=== PATIENT | male | born 1965 | race Caucasian/White ===

== ENCOUNTER 2017-07-15 10:07 | Inpatient (IN) | payer BC, OTHER ==
[2017-07-15] MEDS ORDERED: FENTAnyl 50 MCG/ML VIAL ×2 (12:20→12:55)
[2017-07-15] MEDS ORDERED: LIDOCAINE 1% (MDV) 20 ML INJ (12:20)
[2017-07-15] MEDS ORDERED: HEPARIN 1000 UNITS/ML 10 ML INJ (12:20)
[2017-07-15] MEDS ORDERED: IODIXANOL LOCM 100 ML BTL (12:20)
[2017-07-15] MEDS ORDERED: NITROGLYCERIN (IC) 100 MCG/ML INJ (12:21)
[2017-07-15] MEDS ORDERED: VERAPAMIL 5 MG INJ (12:21)
[2017-07-15] MEDS ORDERED: MIDAZOLAM 1 MG/ML 2 ML INJ ×2 (12:21→12:55)
[2017-07-15] MEDS ORDERED: CLOPIDOGREL 300 MG TAB (13:19)
[2017-07-15] MEDS ORDERED: IOHEXOL 350MG/ML 50 ML BTL (13:25)
[2017-07-15] MEDS ORDERED: BIVALIRUDIN 250MG /NS 50 ML 50 ML IVPB ×2 (13:25→13:59)
[2017-07-15] MEDS ORDERED: NITROGLYCERIN (SL) 0.4 MG TAB (14:14)
[2017-07-15] MEDS ORDERED: ACETAMINOPHEN 325 MG TAB PO (14:30)
[2017-07-15] MEDS: ISOSORBIDE MONONITRATE(SR)60 MG TAB PO (15:21)
[2017-07-15 19:06] LABS: ADD MAN DIFF? NO
[2017-07-15 19:08] LABS: WHITE BLOOD COUNT 7.7 10^3/ul (4.8-10.8)
[2017-07-15 19:08] LABS: BASOPHILS % 0.5 % (0.0-2.0); EOSINOPHILS % 0.5 % (0.0-7.0); HEMATOCRIT 41.2 % (42.0-52.0); HEMOGLOBIN 14.4 g/dl (14.0-18.0); LYMPHOCYTES % 25.8 % (15.0-51.0); MEAN CORPUSCULAR VOLUME 88.8 fl (82.0-101.0); MEAN PLATELET VOLUME 9.9 fl (7.4-10.4); MONOCYTE # 0.5 10^3/ul (0.3-0.9); NEUTROPHIL # 5.2 10^3/ul (1.6-7.5); NEUTROPHILS % 67.1 % (39.0-77.0); PLATELET COUNT 173 10^3/UL (140-415); RED BLOOD COUNT 4.64 10^6/ul (4.70-6.10)
[2017-07-15 19:25] LABS: ANION GAP 13 (8-16); BLOOD UREA NITROGEN 24 mg/dl (7-20); CALCIUM 9.1 mg/dl (8.4-10.2); CARBON DIOXIDE 26 mmol/L (21-31); CHLORIDE 105 mmol/L (97-110); CREATININE 1.37 mg/dl (0.61-1.24); GLUCOSE 125 mg/dl (70-220); POTASSIUM 3.9 mmol/L (3.5-5.1); SODIUM 140 mmol/L (135-144)
[2017-07-15] MEDS: METOPROLOL 25 MG TAB PO (21:08)
[2017-07-16 05:52] LABS: ADD MAN DIFF? NO
[2017-07-16 05:58] LABS: BASOPHILS % 0.4 % (0.0-2.0); EOSINOPHILS # 0.1 10^3/ul (0.0-0.5); EOSINOPHILS % 1.2 % (0.0-7.0); HEMATOCRIT 42.1 % (42.0-52.0); HEMOGLOBIN 14.5 g/dl (14.0-18.0); LYMPHOCYTES # 2.1 10^3/ul (0.8-2.9); LYMPHOCYTES % 26.4 % (15.0-51.0); MEAN CORPUSCULAR HEMOGLOBIN 30.5 pg (29.0-33.0); MEAN CORPUSCULAR HGB CONC 34.4 g/dl (32.0-37.0); MEAN CORPUSCULAR VOLUME 88.6 fl (82.0-101.0); MONOCYTE # 0.6 10^3/ul (0.3-0.9); MONOCYTES % 7.1 % (0.0-11.0); NEUTROPHIL # 5.2 10^3/ul (1.6-7.5); NEUTROPHILS % 64.5 % (39.0-77.0); PLATELET COUNT 169 10^3/UL (140-415); RED BLOOD COUNT 4.75 10^6/ul (4.70-6.10); RED CELL DISTRIBUTION WIDTH 12.8 % (11.5-14.5)
[2017-07-16 06:21] LABS: MAGNESIUM 1.9 mg/dl (1.7-2.5)
[2017-07-16 06:21] LABS: PHOSPHORUS 3.9 mg/dl (2.5-4.9)
[2017-07-16 06:29] LABS: ANION GAP 14 (8-16); BLOOD UREA NITROGEN 21 mg/dl (7-20); CALCIUM 9.2 mg/dl (8.4-10.2); CARBON DIOXIDE 27 mmol/L (21-31); CHLORIDE 104 mmol/L (97-110); CREATININE 1.18 mg/dl (0.61-1.24); GLUCOSE 115 mg/dl (70-220); POTASSIUM 4.2 mmol/L (3.5-5.1); SODIUM 141 mmol/L (135-144)
[2017-07-16] MEDS: ENOXAPARIN 100 MG/ML SYG SC ×2 (08:26→22:13)
[2017-07-16] MEDS: FAMOTIDINE 20 MG TAB PO ×2 (08:28→22:06)
[2017-07-16] MEDS: LINAGLIPTIN 5 MG TABLET PO (08:28)
[2017-07-16] MEDS: ASPIRIN 81 MG TAB PO (08:28)
[2017-07-16] MEDS: METOPROLOL 25 MG TAB PO ×2 (08:29→22:07)
[2017-07-16] MEDS: ISOSORBIDE MONONITRATE(SR)60 MG TAB PO (08:29)
[2017-07-16] MEDS ORDERED: GLUCAGON 1 MG INJ IM (08:30)
[2017-07-16] MEDS ORDERED: GLUCOSE GEL 15 GRAM TUBE PO ×2 (08:30)
[2017-07-16] MEDS ORDERED: DEXTROSE 50% 50 ML SYRINGE IV ×2 (08:30)
[2017-07-16] MEDS ORDERED: GLUCOSE GEL 15 GRAM TUBE BUCCAL (08:30)
[2017-07-16 08:42] LABS: ALANINE AMINOTRANSFERASE 42 IU/L (13-69); ALBUMIN 3.7 g/dl (3.3-4.9); ALKALINE PHOSPHATASE 45 IU/L (42-121); ASPARTATE AMINO TRANSFERASE 37 IU/L (15-46); BILIRUBIN,INDIRECT 0.4 mg/dl (0-1.1); BILIRUBIN,TOTAL 0.4 mg/dl (0.2-1.3); TOTAL PROTEIN 6.8 g/dl (6.1-8.1)
[2017-07-16] MEDS: DOCUSATE SODIUM 100 MG CAP PO (10:26)
[2017-07-16 12:50] LABS: INR 1.01; PROTIME 13.4 Sec (11.9-14.9)
[2017-07-16 14:11] LABS: ADD UMIC NO; UR ASCORBIC ACID NEGATIVE (NEGATIVE); UR BILIRUBIN (Dip) NEGATIVE (NEGATIVE); UR BLOOD (Dip) NEGATIVE (NEGATIVE); UR CLARITY CLEAR (CLEAR); UR COLOR YELLOW (YELLOW); UR GLUCOSE (Dip) NEGATIVE (NEGATIVE); UR KETONES (Dip) NEGATIVE (NEGATIVE); UR LEUKOCYTE ESTERASE (Dip) NEGATIVE Leu/ul (NEGATIVE); UR NITRITE (Dip) NEGATIVE (NEGATIVE); UR TOTAL PROTEIN (Dip) NEGATIVE (NEGATIVE); UR UROBILINOGEN (Dip) NEGATIVE (NEGATIVE)
[2017-07-16] MEDS: ALPRAZOLAM 0.25 MG TAB PO (14:12)
[2017-07-16 14:29] LABS: CREATININE,URINE RANDOM 56.78 mg/dl (20-370)
[2017-07-16 14:29] LABS: SODIUM,URINE RANDOM 39 mmol/L (30-90)
[2017-07-16] MEDS: INSULIN ASPART [NOVOLOG] 3 ML PEN SC ×2 (17:08→21:00)
[2017-07-16] MEDS: NITROGLYCERIN (SL) 0.4 MG TAB SL (18:57)
[2017-07-17] MEDS: ACCU-CHEK XX ×2 (02:00→22:03)
[2017-07-17 07:22] LABS: ANION GAP 12 (8-16); BLOOD UREA NITROGEN 17 mg/dl (7-20); CALCIUM 9.4 mg/dl (8.4-10.2); CARBON DIOXIDE 29 mmol/L (21-31); CHLORIDE 107 mmol/L (97-110); GLUCOSE 107 mg/dl (70-220); PHOSPHORUS 3.9 mg/dl (2.5-4.9); POTASSIUM 4.2 mmol/L (3.5-5.1); SODIUM 144 mmol/L (135-144)
[2017-07-17] MEDS: INSULIN ASPART [NOVOLOG] 3 ML PEN SC ×4 (07:56→21:00)
[2017-07-17] MEDS: ISOSORBIDE MONONITRATE(SR)60 MG TAB PO (08:23)
[2017-07-17] MEDS: FAMOTIDINE 20 MG TAB PO ×2 (08:23→21:31)
[2017-07-17] MEDS: ASPIRIN 81 MG TAB PO (08:23)
[2017-07-17] MEDS: LINAGLIPTIN 5 MG TABLET PO (08:23)
[2017-07-17] MEDS: METOPROLOL 25 MG TAB PO ×2 (08:24→21:32)
[2017-07-17] MEDS: ENOXAPARIN 100 MG/ML SYG SC (08:31)
[2017-07-17] MEDS: LACTULOSE 30ML CUP PO (12:45)
[2017-07-17] MEDS: BISACODYL (EC) 5 MG TAB PO (21:31)
[2017-07-18] MEDS: NITROGLYCERIN (SL) 0.4 MG TAB SL (05:39)
[2017-07-18] MEDS: INSULIN ASPART [NOVOLOG] 3 ML PEN SC ×3 (08:00→19:20)
[2017-07-18] MEDS: ASPIRIN 81 MG TAB PO (08:29)
[2017-07-18] MEDS: LINAGLIPTIN 5 MG TABLET PO (08:29)
[2017-07-18] MEDS: FAMOTIDINE 20 MG TAB PO ×2 (08:29→21:00)
[2017-07-18] MEDS: METOPROLOL 25 MG TAB PO ×2 (09:00→21:00)
[2017-07-18] MEDS: ISOSORBIDE MONONITRATE(SR)60 MG TAB PO (09:00)
[2017-07-18] MEDS: PAPAVERINE 60 MG INJ (11:29)
[2017-07-18] MEDS: VANCOMYCIN 1 GM INJ (11:29)
[2017-07-18] MEDS ORDERED: GELATIN SIZE 100 SPONGE (11:29)
[2017-07-18] MEDS: HEPARIN 1000 UNITS/ML 10 ML INJ (11:29)
[2017-07-18] MEDS ORDERED: THROMBIN 5000 UNIT VIAL (11:29)
[2017-07-18] MEDS ORDERED: EPINEPHrine 4 MG in DEXTROSE 5% 246 ML IV (12:30)
[2017-07-18] MEDS ORDERED: INSULIN HUMAN REGULAR 100 UNIT in SOD CHLORIDE 0.9% 99 ML IV (12:30)
[2017-07-18] MEDS ORDERED: PHENYLephrine 20MG IN 250 ML 250 ML IV (12:30)
[2017-07-18] MEDS ORDERED: MIDAZOLAM 5 ML ×3 (13:16→18:22)
[2017-07-18] MEDS ORDERED: HEPARIN 1000 UNITS/ML 10 ML INJ ×2 (13:21→14:51)
[2017-07-18] MEDS ORDERED: LIDOCAINE 100 MG SYRINGE (13:22)
[2017-07-18] MEDS ORDERED: MAGNESIUM SULFATE (MG) 50% 10 ML INJ (13:22)
[2017-07-18] MEDS ORDERED: POTASSIUM CHLORIDE 40 MEQ INJ (13:22)
[2017-07-18] MEDS ORDERED: NA BICARBONATE 8.4% 50 ML SYG (13:23)
[2017-07-18] MEDS ORDERED: CA CHLORIDE 10% 10 ML SYRINGE (13:23)
[2017-07-18] MEDS ORDERED: ALBUMIN HUMAN 25% 100 ML (13:23)
[2017-07-18] MEDS ORDERED: PHENYLephrine 10 MG INJ (13:24)
[2017-07-18] MEDS ORDERED: AMINOCAPROIC ACID 5 GM INJ (13:24)
[2017-07-18] MEDS ORDERED: MANNITOL 20% 250 ML IV (13:24)
[2017-07-18] MEDS ORDERED: PHENYLephrine (100 MCG/ML) 5ML SYG ×2 (13:44→17:11)
[2017-07-18] MEDS ORDERED: CEFAZOLIN 1 GM INJ ×2 (14:18→17:19)
[2017-07-18 14:22] LABS: CREATININE, RANDOM URINE 67 mg/dL (20-370); MICROALBUMIN 1.7 mg/dL; MICROALBUMIN/CREATININE RATIO 25 (<30)
[2017-07-18] MEDS ORDERED: FUROSEMIDE 20 MG INJ (17:17)
[2017-07-18] MEDS ORDERED: PROTAMINE 250 MG INJ (17:18)
[2017-07-18 17:24] LABS: IMMEDIATE SPIN CROSSMATCH 1 7
[2017-07-18 17:24] LABS: TYPE AND SCREEN 1
[2017-07-18] MEDS ORDERED: ROCURONIUM 50 MG INJ (18:02)
[2017-07-18] MEDS ORDERED: LIDOCAINE 2% (SDV) 5 ML INJ (18:02)
[2017-07-18] MEDS ORDERED: ETOMIDATE 20 MG INJ (18:02)
[2017-07-18] MEDS ORDERED: ONDANSETRON 4 MG INJ IV (19:30)
[2017-07-18] MEDS ORDERED: ACETAMINOPHEN 650 MG SUPP PR (19:30)
[2017-07-18] MEDS ORDERED: DEXTROSE 50% 50 ML SYRINGE IV ×2 (19:30)
[2017-07-18] MEDS ORDERED: HYDROmorphONE 0.5 MG/0.5 ML SYG IV (19:30)
[2017-07-18] MEDS ORDERED: ACETAMINOPHEN 325 MG TAB PO (19:30)
[2017-07-18] MEDS: ACCU-CHEK XX ×5 (19:30→23:59)
[2017-07-18] MEDS ORDERED: DOPamine-D5W 1.6 MG/ML 250 ML IV (19:30)
[2017-07-18] MEDS ORDERED: NITROGLYCERIN 50 MG/D5W (PMX) 250 ML IV (19:30)
[2017-07-18 19:32] LABS: ADD MAN DIFF? NO
[2017-07-18 19:35] LABS: BASOPHILS % 0.1 % (0.0-2.0); EOSINOPHILS % 0.2 % (0.0-7.0); HEMATOCRIT 36.4 % (42.0-52.0); HEMOGLOBIN 12.5 g/dl (14.0-18.0); LYMPHOCYTES % 6.3 % (15.0-51.0); MEAN CORPUSCULAR HEMOGLOBIN 30.6 pg (29.0-33.0); MEAN CORPUSCULAR HGB CONC 34.3 g/dl (32.0-37.0); MEAN CORPUSCULAR VOLUME 89.2 fl (82.0-101.0); MEAN PLATELET VOLUME 9.5 fl (7.4-10.4); MONOCYTE # 0.2 10^3/ul (0.3-0.9); MONOCYTES % 1.3 % (0.0-11.0); NEUTROPHIL # 15.1 10^3/ul (1.6-7.5); NEUTROPHILS % 91.5 % (39.0-77.0); PLATELET COUNT 145 10^3/UL (140-415); RED BLOOD COUNT 4.08 10^6/ul (4.70-6.10); RED CELL DISTRIBUTION WIDTH 12.9 % (11.5-14.5)
[2017-07-18 19:35] LABS: WHITE BLOOD COUNT 16.5 10^3/ul (4.8-10.8)
[2017-07-18 19:38] LABS: AADO2 Arterial 325.7 mmHg (7.0-24.0); Arterial Blood Gas Oxygen Sat 97.8 mmHG (95.0-98.0); Arterial COHb 0.1 % (0.0-3.0); Arterial Fraction of Oxyhgb 97.6 % (93.0-99.0); Arterial HCO3 23.3 mmol/L (22.0-26.0); Arterial MetHb 0.1 % (0.0-1.5); Arterial pCO2 41.8 mmhg (35-45); MODE VENT - AC; Site A-Line
[2017-07-18 19:44] LABS: ANION GAP 14 (8-16); BLOOD UREA NITROGEN 18 mg/dl (7-20); CALCIUM 9.1 mg/dl (8.4-10.2); CARBON DIOXIDE 29 mmol/L (21-31); CHLORIDE 103 mmol/L (97-110); GLUCOSE 111 mg/dl (70-220); MAGNESIUM 2.9 mg/dl (1.7-2.5); POTASSIUM 3.7 mmol/L (3.5-5.1); SODIUM 142 mmol/L (135-144)
[2017-07-18] MEDS: morphine 2 MG INJ IV (19:45)
[2017-07-18 19:47] LABS: INR 1.12; MODE VENT - AC; MetHgb Mixed Venous 0.4 %; Mixed Venous Base Excess -0.6 mmol/L; Mixed Venous COHb 0.5 %; Mixed Venous Fraction OxyHgb 75.3 %; Mixed Venous Total Hemglobin 12.9 g/dl; PROTIME 14.6 Sec (11.9-14.9); PT RATIO 1.1; Sample Type Blood venous; Site VENOUS LINE
[2017-07-18 19:48] LABS: PARTIAL THROMBOPLASTIN TIME 25.8 Sec (25.0-35.0)
[2017-07-18] MEDS: ALBUMIN HUMAN 5% 250 ML IV (20:11)
[2017-07-18] MEDS: POTASSIUM CHLORIDE 40 MEQ, CALCIUM CHLORIDE 10% 1 GM in DEXTROSE 5%-0.225% NACL 1,000 ML IV (20:19)
[2017-07-18] MEDS: POTASSIUM CHLORIDE 50 ML IVPB ×3 (20:23→22:47)
[2017-07-18] MEDS: INSULIN HUMAN REGULAR 100 UNIT in SOD CHLORIDE 0.9% 99 ML IV ×3 (20:38→22:10)
[2017-07-18] MEDS: DOPamine-D5W 1.6 MG/ML 250 ML IV (20:42)
[2017-07-18] MEDS: NITROGLYCERIN 50 MG/D5W (PMX) 250 ML IV (20:43)
[2017-07-18] MEDS: FAMOTIDINE 20 MG INJ IV (21:33)
[2017-07-19] MEDS: morphine 2 MG INJ IV ×3 (00:23→07:19)
[2017-07-19] MEDS: ACCU-CHEK XX ×24 (00:39→23:30)
[2017-07-19 00:59] LABS: POTASSIUM 3.7 mmol/L (3.5-5.1)
[2017-07-19] MEDS: POTASSIUM CHLORIDE 50 ML IVPB ×6 (01:29→21:12)
[2017-07-19] MEDS: ALBUMIN HUMAN 5% 250 ML IV (03:19)
[2017-07-19 04:08] LABS: ADD MAN DIFF? NO
[2017-07-19 04:27] LABS: ABNORMAL IP MESSAGE 1; ANION GAP 16 (8-16); BASOPHILS % 0.2 % (0.0-2.0); BLOOD UREA NITROGEN 16 mg/dl (7-20); CALCIUM 9.1 mg/dl (8.4-10.2); CARBON DIOXIDE 27 mmol/L (21-31); CHLORIDE 107 mmol/L (97-110); CREATININE 1.07 mg/dl (0.61-1.24); GLUCOSE 148 mg/dl (70-220); HEMATOCRIT 34.8 % (42.0-52.0); HEMOGLOBIN 11.9 g/dl (14.0-18.0); LYMPHOCYTES # 0.5 10^3/ul (0.8-2.9); LYMPHOCYTES % 3.7 % (15.0-51.0); MAGNESIUM 2.3 mg/dl (1.7-2.5); MEAN CORPUSCULAR HEMOGLOBIN 30.9 pg (29.0-33.0); MEAN CORPUSCULAR HGB CONC 34.2 g/dl (32.0-37.0); MEAN CORPUSCULAR VOLUME 90.4 fl (82.0-101.0); MEAN PLATELET VOLUME 10.3 fl (7.4-10.4); MONOCYTE # 0.6 10^3/ul (0.3-0.9); MONOCYTES % 4.4 % (0.0-11.0); NEUTROPHILS % 91.4 % (39.0-77.0); PLATELET COUNT 151 10^3/UL (140-415); POSITIVE DIFF @See below; POTASSIUM 4.6 mmol/L (3.5-5.1); RED BLOOD COUNT 3.85 10^6/ul (4.70-6.10); RED CELL DISTRIBUTION WIDTH 13.2 % (11.5-14.5); SODIUM 145 mmol/L (135-144)
[2017-07-19 04:27] LABS: WHITE BLOOD COUNT 13.1 10^3/ul (4.8-10.8)
[2017-07-19 04:33] LABS: PROTIME 14.4 Sec (11.9-14.9); PT RATIO 1.1
[2017-07-19 04:34] LABS: PARTIAL THROMBOPLASTIN TIME 27.2 Sec (25.0-35.0)
[2017-07-19] MEDS ORDERED: AMIODARONE 150 MG INJ IV (05:10)
[2017-07-19] MEDS ORDERED: AMIODARONE 150MG/D5W BOLUS 100 ML (05:13)
[2017-07-19] MEDS ORDERED: AMIODARONE 900 MG in DEXTROSE 5% 482 ML IV (05:30)
[2017-07-19] MEDS: AMIODARONE 150MG/D5W BOLUS 100 ML IV (05:40)
[2017-07-19] MEDS: AMIODARONE 900 MG in DEXTROSE 5% 482 ML IV (06:01)
[2017-07-19] MEDS: FAMOTIDINE 20 MG INJ IV ×2 (08:00→20:00)
[2017-07-19 08:28] LABS: AADO2 Arterial 131.1 mmHg (7.0-24.0); Arterial Base Excess -0.4 mmol/L (-3.0-3); Arterial COHb 0.5 % (0.0-3.0); Arterial Fraction of Oxyhgb 96.2 % (93.0-99.0); Arterial HCO3 24.2 mmol/L (22.0-26.0); Arterial MetHb 0.3 % (0.0-1.5); Arterial Total Hemglobin 11.9 g/dl (12.0-18.0); Arterial pCO2 39.2 mmhg (35-45); Blood Gas PS 5; MODE VENT - CPAP; Site A-Line
[2017-07-19] MEDS: ISOSORBIDE MONONITRATE(SR)60 MG TAB PO (08:44)
[2017-07-19] MEDS: ASPIRIN 81 MG TAB PO (08:44)
[2017-07-19] MEDS: FAMOTIDINE 20 MG TAB PO ×2 (08:44→20:07)
[2017-07-19] MEDS: LINAGLIPTIN 5 MG TABLET PO (08:44)
[2017-07-19] MEDS: METOPROLOL 25 MG TAB PO ×2 (08:45→20:06)
[2017-07-19 09:43] LABS: AADO2 Arterial 43.1 mmHg (7.0-24.0); Arterial Base Excess -1.1 mmol/L (-3.0-3); Arterial Blood Gas Oxygen Sat 93.7 mmHG (95.0-98.0); Arterial COHb 0.7 % (0.0-3.0); Arterial Fraction of Oxyhgb 92.8 % (93.0-99.0); Arterial HCO3 21.7 mmol/L (22.0-26.0); Arterial MetHb 0.3 % (0.0-1.5); Arterial Total Hemglobin 13.3 g/dl (12.0-18.0); Arterial pCO2 30.8 mmhg (35-45); MODE ROOM AIR; Site A-Line
[2017-07-19] MEDS: IOHEXOL 100 ML (10:50)
[2017-07-19] MEDS: SOD CHLORIDE 0.9% 100 ML (10:50)
[2017-07-19] MEDS: HYDROmorphONE 0.5 MG/0.5 ML SYG IV (15:49)
[2017-07-19] MEDS: POTASSIUM CHLORIDE 40 MEQ, CALCIUM CHLORIDE 10% 1 GM in DEXTROSE 5%-0.225% NACL 1,000 ML IV (15:49)
[2017-07-19 19:36] LABS: HEMATOCRIT 34.3 % (42.0-52.0)
[2017-07-19] MEDS: OXYCODONE/ACETAMINOPHEN (5/325) TAB PO ×2 (20:07→23:16)
[2017-07-19] MEDS: DOCUSATE SODIUM 100 MG CAP PO (20:07)
[2017-07-19 20:11] LABS: POTASSIUM 4.5 mmol/L (3.5-5.1)
[2017-07-19 20:11] LABS: MAGNESIUM 1.9 mg/dl (1.7-2.5)
[2017-07-19] MEDS: MAGNESIUM SULFATE 1 GM/D5W 100 ML IVPB (23:19)
[2017-07-20] MEDS: MAGNESIUM SULFATE 1 GM/D5W 100 ML IVPB (00:20)
[2017-07-20] MEDS: ACCU-CHEK XX ×2 (00:20→01:30)
[2017-07-20] MEDS: OXYCODONE/ACETAMINOPHEN (5/325) TAB PO ×5 (02:20→22:50)
[2017-07-20] MEDS: ALPRAZOLAM 0.25 MG TAB PO ×2 (02:21→22:51)
[2017-07-20] MEDS: POTASSIUM CHLORIDE 40 MEQ, CALCIUM CHLORIDE 10% 1 GM in DEXTROSE 5%-0.225% NACL 1,000 ML IV ×2 (05:09→22:40)
[2017-07-20 05:36] LABS: ADD MAN DIFF? NO
[2017-07-20 05:43] LABS: WHITE BLOOD COUNT 12.8 10^3/ul (4.8-10.8)
[2017-07-20 05:43] LABS: BASOPHILS % 0.3 % (0.0-2.0); EOSINOPHILS % 0.2 % (0.0-7.0); HEMATOCRIT 33.4 % (42.0-52.0); HEMOGLOBIN 11.4 g/dl (14.0-18.0); LYMPHOCYTES % 7.7 % (15.0-51.0); MEAN CORPUSCULAR HEMOGLOBIN 30.8 pg (29.0-33.0); MEAN CORPUSCULAR HGB CONC 34.1 g/dl (32.0-37.0); MEAN CORPUSCULAR VOLUME 90.3 fl (82.0-101.0); MONOCYTE # 0.7 10^3/ul (0.3-0.9); MONOCYTES % 5.5 % (0.0-11.0); NEUTROPHILS % 85.8 % (39.0-77.0); PLATELET COUNT 137 10^3/UL (140-415); RED CELL DISTRIBUTION WIDTH 13.2 % (11.5-14.5)
[2017-07-20 06:03] LABS: ANION GAP 13 (8-16); BLOOD UREA NITROGEN 12 mg/dl (7-20); CALCIUM 9.6 mg/dl (8.4-10.2); CARBON DIOXIDE 28 mmol/L (21-31); CHLORIDE 98 mmol/L (97-110); CREATININE 0.91 mg/dl (0.61-1.24); GLUCOSE 304 mg/dl (70-220); MAGNESIUM 2.1 mg/dl (1.7-2.5); PHOSPHORUS 3.5 mg/dl (2.5-4.9); POTASSIUM 4.9 mmol/L (3.5-5.1); SODIUM 134 mmol/L (135-144)
[2017-07-20] MEDS: FAMOTIDINE 20 MG INJ IV (07:29)
[2017-07-20] MEDS: INSULIN ASPART [NOVOLOG] 3 ML PEN SC ×4 (07:35→21:00)
[2017-07-20] MEDS: LINAGLIPTIN 5 MG TABLET PO (08:47)
[2017-07-20] MEDS: ISOSORBIDE MONONITRATE(SR)60 MG TAB PO (08:47)
[2017-07-20] MEDS: FAMOTIDINE 20 MG TAB PO ×2 (08:47→20:57)
[2017-07-20] MEDS: ASPIRIN 81 MG TAB PO (08:48)
[2017-07-20] MEDS: METOPROLOL 25 MG TAB PO ×2 (08:48→12:38)
[2017-07-20] MEDS: ENOXAPARIN 100 MG/ML SYG SC ×2 (12:40→20:59)
[2017-07-20] MEDS: METOPROLOL 50 MG TAB PO (20:57)
[2017-07-20] MEDS: DOCUSATE SODIUM 100 MG CAP PO (22:51)
[2017-07-21] MEDS: ACCU-CHEK XX (02:00)
[2017-07-21 06:28] LABS: ADD MAN DIFF? NO
[2017-07-21 06:35] LABS: BASOPHILS % 0.3 % (0.0-2.0); EOSINOPHILS % 0.3 % (0.0-7.0); HEMATOCRIT 37.8 % (42.0-52.0); HEMOGLOBIN 12.9 g/dl (14.0-18.0); LYMPHOCYTES # 1.4 10^3/ul (0.8-2.9); LYMPHOCYTES % 11.8 % (15.0-51.0); MEAN CORPUSCULAR HEMOGLOBIN 30.9 pg (29.0-33.0); MEAN CORPUSCULAR HGB CONC 34.1 g/dl (32.0-37.0); MEAN CORPUSCULAR VOLUME 90.4 fl (82.0-101.0); MEAN PLATELET VOLUME 10.2 fl (7.4-10.4); MONOCYTE # 0.8 10^3/ul (0.3-0.9); MONOCYTES % 6.6 % (0.0-11.0); NEUTROPHIL # 9.2 10^3/ul (1.6-7.5); NEUTROPHILS % 80.6 % (39.0-77.0); PLATELET COUNT 140 10^3/UL (140-415); RED BLOOD COUNT 4.18 10^6/ul (4.70-6.10); RED CELL DISTRIBUTION WIDTH 13.1 % (11.5-14.5)
[2017-07-21 06:35] LABS: WHITE BLOOD COUNT 11.4 10^3/ul (4.8-10.8)
[2017-07-21] MEDS: OXYCODONE/ACETAMINOPHEN (5/325) TAB PO ×3 (06:50→21:54)
[2017-07-21 07:19] LABS: ANION GAP 17 (8-16); BLOOD UREA NITROGEN 18 mg/dl (7-20); CALCIUM 9.4 mg/dl (8.4-10.2); CARBON DIOXIDE 31 mmol/L (21-31); CHLORIDE 99 mmol/L (97-110); GLUCOSE 112 mg/dl (70-220); MAGNESIUM 1.9 mg/dl (1.7-2.5); PHOSPHORUS 3.6 mg/dl (2.5-4.9); POTASSIUM 4.1 mmol/L (3.5-5.1); SODIUM 143 mmol/L (135-144)
[2017-07-21] MEDS: METOPROLOL 50 MG TAB PO ×2 (08:06→20:59)
[2017-07-21] MEDS: ISOSORBIDE MONONITRATE(SR)60 MG TAB PO (08:06)
[2017-07-21] MEDS: LINAGLIPTIN 5 MG TABLET PO (08:06)
[2017-07-21] MEDS: ASPIRIN 81 MG TAB PO (08:06)
[2017-07-21] MEDS: FAMOTIDINE 20 MG TAB PO ×2 (08:06→20:59)
[2017-07-21] MEDS: ENOXAPARIN 100 MG/ML SYG SC ×2 (08:07→21:03)
[2017-07-21] MEDS: INSULIN ASPART [NOVOLOG] 3 ML PEN SC ×4 (08:08→20:59)
[2017-07-21] MEDS: ALPRAZOLAM 0.25 MG TAB PO (21:52)
[2017-07-21] MEDS: DOCUSATE SODIUM 100 MG CAP PO (21:56)
[2017-07-22] MEDS: INSULIN ASPART [NOVOLOG] 3 ML PEN SC ×4 (07:55→21:00)
[2017-07-22] MEDS: ASPIRIN 81 MG TAB PO (08:09)
[2017-07-22] MEDS: METOPROLOL 50 MG TAB PO ×2 (08:09→21:08)
[2017-07-22] MEDS: FAMOTIDINE 20 MG TAB PO ×2 (08:09→21:03)
[2017-07-22] MEDS: LINAGLIPTIN 5 MG TABLET PO (08:09)
[2017-07-22] MEDS: ENOXAPARIN 100 MG/ML SYG SC ×2 (08:14→21:12)
[2017-07-22 08:26] LABS: ADD MAN DIFF? NO
[2017-07-22 08:35] LABS: BASOPHILS % 0.4 % (0.0-2.0); EOSINOPHILS # 0.1 10^3/ul (0.0-0.5); EOSINOPHILS % 0.9 % (0.0-7.0); HEMATOCRIT 37.9 % (42.0-52.0); HEMOGLOBIN 12.9 g/dl (14.0-18.0); LYMPHOCYTES # 1.4 10^3/ul (0.8-2.9); LYMPHOCYTES % 14.1 % (15.0-51.0); MEAN CORPUSCULAR HEMOGLOBIN 30.6 pg (29.0-33.0); MEAN CORPUSCULAR VOLUME 89.8 fl (82.0-101.0); MEAN PLATELET VOLUME 10.2 fl (7.4-10.4); MONOCYTE # 0.8 10^3/ul (0.3-0.9); NEUTROPHIL # 7.6 10^3/ul (1.6-7.5); PLATELET COUNT 123 10^3/UL (140-415); POSITIVE DIFF @See below; RED BLOOD COUNT 4.22 10^6/ul (4.70-6.10); RED CELL DISTRIBUTION WIDTH 13.2 % (11.5-14.5)
[2017-07-22 09:05] LABS: ANION GAP 12 (8-16); BLOOD UREA NITROGEN 18 mg/dl (7-20); CALCIUM 9.5 mg/dl (8.4-10.2); CARBON DIOXIDE 33 mmol/L (21-31); CHLORIDE 103 mmol/L (97-110); CREATININE 1.19 mg/dl (0.61-1.24); GLUCOSE 106 mg/dl (70-220); MAGNESIUM 2.1 mg/dl (1.7-2.5); PHOSPHORUS 3.3 mg/dl (2.5-4.9); POTASSIUM 3.7 mmol/L (3.5-5.1); SODIUM 144 mmol/L (135-144)
[2017-07-22] MEDS: MAGNESIUM CITRATE 300 ML BTL PO (12:40)
[2017-07-22] MEDS: LISINOPRIL 5 MG TAB PO (12:40)
[2017-07-22] MEDS: DOCUSATE SODIUM 100 MG CAP PO (15:08)
[2017-07-22] MEDS: POLYETHYLENE GLYCOL 17 GM PACKET GTB (15:08)
[2017-07-22] MEDS: ALPRAZOLAM 0.25 MG TAB PO (21:03)
[2017-07-22] MEDS: OXYCODONE/ACETAMINOPHEN (5/325) TAB PO (21:08)
[2017-07-23 08:13] LABS: ADD MAN DIFF? NO
[2017-07-23 08:21] LABS: BASOPHIL # 0.1 10^3/ul (0.0-0.1); BASOPHILS % 0.5 % (0.0-2.0); EOSINOPHILS # 0.1 10^3/ul (0.0-0.5); HEMATOCRIT 39.3 % (42.0-52.0); HEMOGLOBIN 13.3 g/dl (14.0-18.0); LYMPHOCYTES # 1.6 10^3/ul (0.8-2.9); LYMPHOCYTES % 17.4 % (15.0-51.0); MEAN CORPUSCULAR HEMOGLOBIN 30.5 pg (29.0-33.0); MEAN CORPUSCULAR HGB CONC 33.8 g/dl (32.0-37.0); MEAN CORPUSCULAR VOLUME 90.1 fl (82.0-101.0); MEAN PLATELET VOLUME 10.4 fl (7.4-10.4); MONOCYTE # 0.7 10^3/ul (0.3-0.9); MONOCYTES % 7.1 % (0.0-11.0); NEUTROPHIL # 6.8 10^3/ul (1.6-7.5); NEUTROPHILS % 73.5 % (39.0-77.0); PLATELET COUNT 133 10^3/UL (140-415); POSITIVE DIFF @See below; RED BLOOD COUNT 4.36 10^6/ul (4.70-6.10); RED CELL DISTRIBUTION WIDTH 12.9 % (11.5-14.5)
[2017-07-23 08:21] LABS: WHITE BLOOD COUNT 9.3 10^3/ul (4.8-10.8)
[2017-07-23] MEDS: METOPROLOL 50 MG TAB PO ×2 (08:25→20:17)
[2017-07-23] MEDS: LINAGLIPTIN 5 MG TABLET PO (08:25)
[2017-07-23] MEDS: LISINOPRIL 5 MG TAB PO (08:25)
[2017-07-23] MEDS: ASPIRIN 81 MG TAB PO (08:25)
[2017-07-23] MEDS: FAMOTIDINE 20 MG TAB PO ×2 (08:25→20:17)
[2017-07-23] MEDS: INSULIN ASPART [NOVOLOG] 3 ML PEN SC ×4 (08:31→20:16)
[2017-07-23 08:37] LABS: ANION GAP 14 (8-16); BLOOD UREA NITROGEN 18 mg/dl (7-20); CALCIUM 9.6 mg/dl (8.4-10.2); CARBON DIOXIDE 31 mmol/L (21-31); CHLORIDE 103 mmol/L (97-110); CREATININE 1.13 mg/dl (0.61-1.24); GLUCOSE 132 mg/dl (70-220); MAGNESIUM 2.3 mg/dl (1.7-2.5); PHOSPHORUS 3.7 mg/dl (2.5-4.9); POTASSIUM 4.1 mmol/L (3.5-5.1); SODIUM 144 mmol/L (135-144)
[2017-07-23] MEDS: RIVAROXABAN 15 MG TABLET PO (17:29)
[2017-07-23] MEDS: POLYETHYLENE GLYCOL 17 GM PACKET GTB (20:17)
[2017-07-23] MEDS: OXYCODONE/ACETAMINOPHEN (5/325) TAB PO (23:27)
[2017-07-23] MEDS: ALPRAZOLAM 0.25 MG TAB PO (23:27)
[2017-07-24] MEDS: INSULIN ASPART [NOVOLOG] 3 ML PEN SC ×4 (07:55→20:02)
[2017-07-24] MEDS: RIVAROXABAN 15 MG TABLET PO ×2 (08:31→17:27)
[2017-07-24] MEDS: LINAGLIPTIN 5 MG TABLET PO (08:31)
[2017-07-24] MEDS: METOPROLOL 50 MG TAB PO ×2 (08:31→20:02)
[2017-07-24] MEDS: ASPIRIN 81 MG TAB PO (08:31)
[2017-07-24] MEDS: FAMOTIDINE 20 MG TAB PO ×2 (08:32→20:02)
[2017-07-24] MEDS: LISINOPRIL 5 MG TAB PO (08:32)
[2017-07-24 08:43] LABS: ADD MAN DIFF? NO
[2017-07-24 08:52] LABS: WHITE BLOOD COUNT 8.6 10^3/ul (4.8-10.8)
[2017-07-24 08:52] LABS: BASOPHIL # 0.1 10^3/ul (0.0-0.1); BASOPHILS % 0.6 % (0.0-2.0); EOSINOPHILS # 0.1 10^3/ul (0.0-0.5); EOSINOPHILS % 1.5 % (0.0-7.0); HEMATOCRIT 38.3 % (42.0-52.0); HEMOGLOBIN 12.7 g/dl (14.0-18.0); LYMPHOCYTES # 1.4 10^3/ul (0.8-2.9); MEAN CORPUSCULAR HEMOGLOBIN 29.6 pg (29.0-33.0); MEAN CORPUSCULAR HGB CONC 33.2 g/dl (32.0-37.0); MEAN CORPUSCULAR VOLUME 89.3 fl (82.0-101.0); MEAN PLATELET VOLUME 10.9 fl (7.4-10.4); MONOCYTE # 0.7 10^3/ul (0.3-0.9); MONOCYTES % 8.2 % (0.0-11.0); NEUTROPHIL # 6.3 10^3/ul (1.6-7.5); NEUTROPHILS % 73.1 % (39.0-77.0); PLATELET COUNT 135 10^3/UL (140-415); POSITIVE DIFF @See below; RED BLOOD COUNT 4.29 10^6/ul (4.70-6.10)
[2017-07-24 09:12] LABS: ANION GAP 17 (8-16); BLOOD UREA NITROGEN 21 mg/dl (7-20); CALCIUM 9.2 mg/dl (8.4-10.2); CARBON DIOXIDE 27 mmol/L (21-31); CHLORIDE 104 mmol/L (97-110); CREATININE 1.22 mg/dl (0.61-1.24); GLUCOSE 104 mg/dl (70-220); MAGNESIUM 2.2 mg/dl (1.7-2.5); PHOSPHORUS 4.8 mg/dl (2.5-4.9); SODIUM 144 mmol/L (135-144)
[2017-07-24] MEDS: MAGNESIUM CITRATE 300 ML BTL PO (10:25)
== END 2017-07-24 20:50 | DRG 234 ==
LOC: TEL 07-21 12:00 → SDS 10:07 → ICU 07-18 14:46 → TEL 07-21 12:24 → SDS 14:31 → REC 14:31 → MS4 07-16 13:20 → ICU 14:50
PROVIDERS: Internal Medicine Interventional Cardiology
PROC: 02100Z9 Bypass Coronary Artery, One Artery from Left Internal Mammary, Open Approach (ICD-10-PCS; principal; 2017-07-15 12:21)
PROC: 4A023N7 Measurement of Cardiac Sampling and Pressure, Left Heart, Percutaneous Approach (ICD-10-PCS; 2017-07-15 12:21)
PROC: 021109W Bypass Coronary Artery, Two Arteries from Aorta with Autologous Venous Tissue, Open Approach (ICD-10-PCS; 2017-07-15 12:21)
PROC: 06BQ4ZZ Excision of Left Saphenous Vein, Percutaneous Endoscopic Approach (ICD-10-PCS; 2017-07-15 12:21)
PROC: B211YZZ Fluoroscopy of Multiple Coronary Arteries using Other Contrast (ICD-10-PCS; 2017-07-15 12:21)
PROC: 5A1221Z Performance of Cardiac Output, Continuous (ICD-10-PCS; 2017-07-15 12:21)
PROC: B24BZZ4 Ultrasonography of Heart with Aorta, Transesophageal (ICD-10-PCS; 2017-07-15 12:21)
PROC: 4A133R1 Monitoring of Arterial Saturation, Peripheral, Percutaneous Approach (ICD-10-PCS; 2017-07-15 12:21)
DX: I21.4 Non-ST elevation (NSTEMI) myocardial infarction (principal); I82.401 Acute embolism and thrombosis of unspecified deep veins of right lower extremity; I47.2 Ventricular tachycardia; I42.9 Cardiomyopathy, unspecified; N17.9 Acute kidney failure, unspecified; R65.10 Systemic inflammatory response syndrome (SIRS) of non-infectious origin without acute organ dysfunction; I10 Essential (primary) hypertension; E78.5 Hyperlipidemia, unspecified; E11.9 Type 2 diabetes mellitus without complications; J45.909 Unspecified asthma, uncomplicated; K21.9 Gastro-esophageal reflux disease without esophagitis; M10.9 Gout, unspecified; F41.9 Anxiety disorder, unspecified; Z79.01 Long term (current) use of anticoagulants; I25.10 Atherosclerotic heart disease of native coronary artery without angina pectoris; F17.290 Nicotine dependence, other tobacco product, uncomplicated; H02.402 Unspecified ptosis of left eyelid; R53.1 Weakness; D64.9 Anemia, unspecified; K59.00 Constipation, unspecified
CPT/HCPCS: 36430; 36592; 36600; 70450; 70551; 71045; 71275; 80048; 80076; 81003; 82043; 82803; 82962; 83735; 84100; 84132; 84155; 84300; 84484; 85014; 85025; 85610; 85730; 86644; 86850; 86900; 86901; 86920; 86945; 87081; 92920; 93005; 93308; 93312; 93458; 93880; 93970; 94002; 94003; 94770; 97116; 97162; 97165; 97530

== ENCOUNTER 2017-07-24 21:10 | Inpatient (IN) | payer BC ==
[2017-07-24] MEDS ORDERED: NITROGLYCERIN (SL) 0.4 MG TAB SL (22:58)
[2017-07-24] MEDS ORDERED: DEXTROSE 50% 50 ML SYRINGE IV ×2 (22:58)
[2017-07-24] MEDS ORDERED: OXYCODONE/ACETAMINOPHEN (5/325) TAB PO (22:58)
[2017-07-24] MEDS ORDERED: ONDANSETRON 4 MG INJ IV (22:58)
[2017-07-24] MEDS ORDERED: GLUCOSE GEL 15 GRAM TUBE BUCCAL (22:58)
[2017-07-24] MEDS ORDERED: POLYETHYLENE GLYCOL 17 GM PACKET GTB (22:58)
[2017-07-24] MEDS ORDERED: GLUCAGON 1 MG INJ IM (22:58)
[2017-07-24] MEDS ORDERED: ACETAMINOPHEN 325 MG TAB PO (22:58)
[2017-07-24] MEDS ORDERED: GLUCOSE GEL 15 GRAM TUBE PO ×2 (22:58)
[2017-07-25] MEDS: DOCUSATE SODIUM 100 MG CAP PO (00:17)
[2017-07-25] MEDS: OXYCODONE/ACETAMINOPHEN (5/325) TAB PO ×3 (00:17→23:00)
[2017-07-25] MEDS: ALPRAZOLAM 0.25 MG TAB PO ×2 (00:17→22:59)
[2017-07-25 01:42] LABS: ADD UMIC NO; UR ASCORBIC ACID NEGATIVE (NEGATIVE); UR BILIRUBIN (Dip) NEGATIVE (NEGATIVE); UR BLOOD (Dip) NEGATIVE (NEGATIVE); UR CLARITY CLEAR (CLEAR); UR COLOR YELLOW (YELLOW); UR GLUCOSE (Dip) NEGATIVE (NEGATIVE); UR KETONES (Dip) NEGATIVE (NEGATIVE); UR LEUKOCYTE ESTERASE (Dip) NEGATIVE Leu/ul (NEGATIVE); UR NITRITE (Dip) NEGATIVE (NEGATIVE); UR SPECIFIC GRAVITY (Dip) 1.024 (1.003-1.030); UR TOTAL PROTEIN (Dip) NEGATIVE (NEGATIVE); UR UROBILINOGEN (Dip) NEGATIVE (NEGATIVE)
[2017-07-25 06:37] LABS: ADD MAN DIFF? NO
[2017-07-25 06:39] LABS: WHITE BLOOD COUNT 8.6 10^3/ul (4.8-10.8)
[2017-07-25 06:39] LABS: BASOPHILS % 0.3 % (0.0-2.0); EOSINOPHILS # 0.2 10^3/ul (0.0-0.5); HEMATOCRIT 36.7 % (42.0-52.0); HEMOGLOBIN 12.4 g/dl (14.0-18.0); LYMPHOCYTES # 2.1 10^3/ul (0.8-2.9); LYMPHOCYTES % 24.6 % (15.0-51.0); MEAN CORPUSCULAR HEMOGLOBIN 30.2 pg (29.0-33.0); MEAN CORPUSCULAR HGB CONC 33.8 g/dl (32.0-37.0); MEAN CORPUSCULAR VOLUME 89.5 fl (82.0-101.0); MEAN PLATELET VOLUME 10.6 fl (7.4-10.4); MONOCYTE # 0.8 10^3/ul (0.3-0.9); MONOCYTES % 8.7 % (0.0-11.0); NEUTROPHIL # 5.5 10^3/ul (1.6-7.5); NEUTROPHILS % 63.7 % (39.0-77.0); PLATELET COUNT 150 10^3/UL (140-415)
[2017-07-25 07:13] LABS: ALANINE AMINOTRANSFERASE 66 IU/L (13-69); ALBUMIN/GLOBULIN RATIO 1.05; ALKALINE PHOSPHATASE 53 IU/L (42-121); ANION GAP 17 (8-16); ASPARTATE AMINO TRANSFERASE 40 IU/L (15-46); BILIRUBIN,INDIRECT 0.6 mg/dl (0-1.1); BILIRUBIN,TOTAL 0.6 mg/dl (0.2-1.3); BLOOD UREA NITROGEN 25 mg/dl (7-20); CARBON DIOXIDE 25 mmol/L (21-31); CHLORIDE 105 mmol/L (97-110); CREATININE 1.27 mg/dl (0.61-1.24); GLUCOSE 100 mg/dl (70-220); POTASSIUM 4.4 mmol/L (3.5-5.1); SODIUM 143 mmol/L (135-144); TOTAL PROTEIN 7.8 g/dl (6.1-8.1)
[2017-07-25] MEDS: INSULIN ASPART [NOVOLOG] 3 ML PEN SC ×4 (07:35→21:00)
[2017-07-25] MEDS: RIVAROXABAN 15 MG TABLET PO (07:55)
[2017-07-25] MEDS: METOPROLOL 50 MG TAB PO ×2 (09:01→21:15)
[2017-07-25] MEDS: ASPIRIN 81 MG TAB PO (09:02)
[2017-07-25] MEDS: LISINOPRIL 5 MG TAB PO (09:02)
[2017-07-25] MEDS: FAMOTIDINE 20 MG TAB PO ×2 (09:02→21:15)
[2017-07-25] MEDS: ISOSORBIDE MONONITRATE(SR)30 MG TAB PO (09:02)
[2017-07-25] MEDS: LINAGLIPTIN 5 MG TABLET PO (09:02)
[2017-07-25] MEDS: DICLOFENAC SODIUM 1% GEL 100 GM TUBE TP (11:49)
[2017-07-25] MEDS: MAGNESIUM CITRATE 300 ML BTL PO (21:16)
[2017-07-26] MEDS: INSULIN ASPART [NOVOLOG] 3 ML PEN SC ×4 (07:35→20:49)
[2017-07-26] MEDS: RIVAROXABAN 15 MG TABLET PO (07:51)
[2017-07-26] MEDS: DICLOFENAC SODIUM 1% GEL 100 GM TUBE TP (08:08)
[2017-07-26] MEDS: METOPROLOL 50 MG TAB PO ×2 (08:09→20:49)
[2017-07-26] MEDS: ISOSORBIDE MONONITRATE(SR)30 MG TAB PO (08:09)
[2017-07-26] MEDS: LINAGLIPTIN 5 MG TABLET PO (08:09)
[2017-07-26] MEDS: FAMOTIDINE 20 MG TAB PO ×2 (08:09→20:48)
[2017-07-26] MEDS: ASPIRIN 81 MG TAB PO (08:09)
[2017-07-26] MEDS: LISINOPRIL 5 MG TAB PO (08:10)
[2017-07-26 09:08] LABS: ADD MAN DIFF? NO
[2017-07-26 09:25] LABS: BASOPHIL # 0.1 10^3/ul (0.0-0.1); BASOPHILS % 0.6 % (0.0-2.0); EOSINOPHILS # 0.1 10^3/ul (0.0-0.5); EOSINOPHILS % 1.6 % (0.0-7.0); HEMATOCRIT 34.1 % (42.0-52.0); HEMOGLOBIN 11.5 g/dl (14.0-18.0); LYMPHOCYTES # 1.6 10^3/ul (0.8-2.9); LYMPHOCYTES % 19.8 % (15.0-51.0); MEAN CORPUSCULAR HEMOGLOBIN 30.3 pg (29.0-33.0); MEAN CORPUSCULAR HGB CONC 33.7 g/dl (32.0-37.0); MEAN CORPUSCULAR VOLUME 89.7 fl (82.0-101.0); MEAN PLATELET VOLUME 11.1 fl (7.4-10.4); MONOCYTE # 0.6 10^3/ul (0.3-0.9); NEUTROPHIL # 5.7 10^3/ul (1.6-7.5); NEUTROPHILS % 70.3 % (39.0-77.0); PLATELET COUNT 173 10^3/UL (140-415)
[2017-07-26 09:25] LABS: WHITE BLOOD COUNT 8.2 10^3/ul (4.8-10.8)
[2017-07-26 09:29] LABS: ANION GAP 15 (8-16); BLOOD UREA NITROGEN 22 mg/dl (7-20); CALCIUM 8.7 mg/dl (8.4-10.2); CARBON DIOXIDE 28 mmol/L (21-31); CHLORIDE 103 mmol/L (97-110); CREATININE 1.12 mg/dl (0.61-1.24); GLUCOSE 126 mg/dl (70-220); MAGNESIUM 2.5 mg/dl (1.7-2.5); PHOSPHORUS 3.6 mg/dl (2.5-4.9); POTASSIUM 3.9 mmol/L (3.5-5.1); SODIUM 142 mmol/L (135-144)
[2017-07-26] MEDS: OXYCODONE/ACETAMINOPHEN (5/325) TAB PO ×3 (10:30→17:01)
[2017-07-26] MEDS: BACLOFEN 10 MG TAB PO ×3 (11:00→20:49)
[2017-07-26] MEDS: ALPRAZOLAM 0.25 MG TAB PO (22:52)
[2017-07-27] MEDS: OXYCODONE/ACETAMINOPHEN (5/325) TAB PO (04:23)
[2017-07-27] MEDS: INSULIN ASPART [NOVOLOG] 3 ML PEN SC ×4 (07:35→21:00)
[2017-07-27] MEDS: RIVAROXABAN 15 MG TABLET PO (08:44)
[2017-07-27] MEDS: ASPIRIN 81 MG TAB PO (08:53)
[2017-07-27] MEDS: BACLOFEN 10 MG TAB PO ×2 (08:54→21:12)
[2017-07-27] MEDS: ISOSORBIDE MONONITRATE(SR)30 MG TAB PO (08:54)
[2017-07-27] MEDS: LINAGLIPTIN 5 MG TABLET PO (08:55)
[2017-07-27] MEDS: FAMOTIDINE 20 MG TAB PO ×2 (08:55→21:12)
[2017-07-27] MEDS: METOPROLOL 50 MG TAB PO ×2 (08:55→21:00)
[2017-07-27] MEDS: LISINOPRIL 5 MG TAB PO (08:55)
[2017-07-28] MEDS: OXYCODONE/ACETAMINOPHEN (5/325) TAB PO (01:53)
[2017-07-28] MEDS: INSULIN ASPART [NOVOLOG] 3 ML PEN SC ×4 (07:35→21:00)
[2017-07-28] MEDS: RIVAROXABAN 15 MG TABLET PO (07:50)
[2017-07-28] MEDS: FAMOTIDINE 20 MG TAB PO ×2 (08:28→20:45)
[2017-07-28] MEDS: METOPROLOL 50 MG TAB PO ×2 (08:28→20:46)
[2017-07-28] MEDS: LINAGLIPTIN 5 MG TABLET PO (08:28)
[2017-07-28] MEDS: ASPIRIN 81 MG TAB PO (08:28)
[2017-07-28] MEDS: LISINOPRIL 5 MG TAB PO (08:28)
[2017-07-28] MEDS: BACLOFEN 10 MG TAB PO ×2 (08:29→20:45)
[2017-07-28] MEDS: ISOSORBIDE MONONITRATE(SR)30 MG TAB PO (08:29)
[2017-07-28] MEDS ORDERED: LACTULOSE 30ML CUP PO (15:00)
[2017-07-28] MEDS ORDERED: BISACODYL 10 MG SUPP PR (15:00)
[2017-07-28] MEDS ORDERED: MAGNESIUM HYDROXIDE 30ML CUP PO (15:00)
[2017-07-28] MEDS: DOCUSATE SODIUM 100 MG CAP PO (20:50)
[2017-07-28] MEDS: SENNA TAB PO (20:55)
[2017-07-28] MEDS: ALPRAZOLAM 0.25 MG TAB PO (22:31)
[2017-07-29 06:10] LABS: ADD MAN DIFF? NO
[2017-07-29 06:21] LABS: WHITE BLOOD COUNT 8.5 10^3/ul (4.8-10.8)
[2017-07-29 06:21] LABS: BASOPHIL # 0.1 10^3/ul (0.0-0.1); BASOPHILS % 0.6 % (0.0-2.0); EOSINOPHILS # 0.1 10^3/ul (0.0-0.5); EOSINOPHILS % 1.3 % (0.0-7.0); HEMOGLOBIN 11.8 g/dl (14.0-18.0); LYMPHOCYTES # 1.6 10^3/ul (0.8-2.9); LYMPHOCYTES % 18.7 % (15.0-51.0); MEAN CORPUSCULAR HEMOGLOBIN 30.1 pg (29.0-33.0); MEAN CORPUSCULAR HGB CONC 33.7 g/dl (32.0-37.0); MEAN CORPUSCULAR VOLUME 89.3 fl (82.0-101.0); MEAN PLATELET VOLUME 10.3 fl (7.4-10.4); MONOCYTE # 0.6 10^3/ul (0.3-0.9); MONOCYTES % 7.1 % (0.0-11.0); NEUTROPHIL # 6.1 10^3/ul (1.6-7.5); NEUTROPHILS % 71.7 % (39.0-77.0); PLATELET COUNT 234 10^3/UL (140-415); RED BLOOD COUNT 3.92 10^6/ul (4.70-6.10); RED CELL DISTRIBUTION WIDTH 12.6 % (11.5-14.5)
[2017-07-29 06:41] LABS: ANION GAP 12 (8-16); BLOOD UREA NITROGEN 22 mg/dl (7-20); CALCIUM 9.6 mg/dl (8.4-10.2); CARBON DIOXIDE 29 mmol/L (21-31); CHLORIDE 107 mmol/L (97-110); CREATININE 1.17 mg/dl (0.61-1.24); GLUCOSE 98 mg/dl (70-220); PHOSPHORUS 4.5 mg/dl (2.5-4.9); POTASSIUM 4.3 mmol/L (3.5-5.1); SODIUM 144 mmol/L (135-144)
[2017-07-29] MEDS: INSULIN ASPART [NOVOLOG] 3 ML PEN SC ×4 (08:07→21:00)
[2017-07-29] MEDS: DOCUSATE SODIUM 100 MG CAP PO ×2 (08:30→21:52)
[2017-07-29] MEDS: RIVAROXABAN 15 MG TABLET PO (08:30)
[2017-07-29] MEDS: BACLOFEN 10 MG TAB PO ×2 (08:30→21:54)
[2017-07-29] MEDS: SENNA TAB PO (08:31)
[2017-07-29] MEDS: LINAGLIPTIN 5 MG TABLET PO (08:31)
[2017-07-29] MEDS: ASPIRIN 81 MG TAB PO (08:31)
[2017-07-29] MEDS: FAMOTIDINE 20 MG TAB PO ×2 (08:31→21:54)
[2017-07-29] MEDS: ISOSORBIDE MONONITRATE(SR)60 MG TAB PO (08:48)
[2017-07-29] MEDS: LISINOPRIL 5 MG TAB PO (08:48)
[2017-07-29] MEDS: METOPROLOL 50 MG TAB PO ×2 (08:49→21:53)
[2017-07-30] MEDS: OXYCODONE/ACETAMINOPHEN (5/325) TAB PO (01:57)
[2017-07-30] MEDS: INSULIN ASPART [NOVOLOG] 3 ML PEN SC ×4 (07:35→20:28)
[2017-07-30] MEDS: RIVAROXABAN 15 MG TABLET PO (07:38)
[2017-07-30] MEDS: BACLOFEN 10 MG TAB PO ×2 (08:31→20:27)
[2017-07-30] MEDS: LINAGLIPTIN 5 MG TABLET PO (08:31)
[2017-07-30] MEDS: ASPIRIN 81 MG TAB PO (08:31)
[2017-07-30] MEDS: SENNA TAB PO (08:31)
[2017-07-30] MEDS: DOCUSATE SODIUM 100 MG CAP PO ×2 (08:32→20:27)
[2017-07-30] MEDS: FAMOTIDINE 20 MG TAB PO ×2 (08:32→20:27)
[2017-07-30] MEDS: METOPROLOL 50 MG TAB PO ×2 (08:41→20:27)
[2017-07-30] MEDS: LISINOPRIL 5 MG TAB PO (09:00)
[2017-07-30] MEDS: ISOSORBIDE MONONITRATE(SR)60 MG TAB PO (15:17)
[2017-07-30] MEDS: HYDROmorphONE 0.5 MG/0.5 ML SYG IV ×2 (15:29→16:12)
[2017-07-30] MEDS: LORAZEPAM 2 MG INJ IV (16:27)
[2017-07-31 07:30] LABS: ADD MAN DIFF? NO
[2017-07-31 07:35] LABS: BASOPHIL # 0.1 10^3/ul (0.0-0.1); BASOPHILS % 0.6 % (0.0-2.0); EOSINOPHILS # 0.1 10^3/ul (0.0-0.5); EOSINOPHILS % 1.2 % (0.0-7.0); HEMATOCRIT 33.3 % (42.0-52.0); LYMPHOCYTES # 1.4 10^3/ul (0.8-2.9); LYMPHOCYTES % 17.1 % (15.0-51.0); MEAN CORPUSCULAR HEMOGLOBIN 29.6 pg (29.0-33.0); MEAN CORPUSCULAR VOLUME 89.8 fl (82.0-101.0); MEAN PLATELET VOLUME 10.3 fl (7.4-10.4); MONOCYTE # 0.5 10^3/ul (0.3-0.9); MONOCYTES % 5.8 % (0.0-11.0); NEUTROPHIL # 6.2 10^3/ul (1.6-7.5); NEUTROPHILS % 74.7 % (39.0-77.0); PLATELET COUNT 236 10^3/UL (140-415); RED BLOOD COUNT 3.71 10^6/ul (4.70-6.10); RED CELL DISTRIBUTION WIDTH 12.7 % (11.5-14.5)
[2017-07-31 07:35] LABS: WHITE BLOOD COUNT 8.3 10^3/ul (4.8-10.8)
[2017-07-31] MEDS: INSULIN ASPART [NOVOLOG] 3 ML PEN SC ×4 (08:00→21:00)
[2017-07-31 08:08] LABS: ANION GAP 12 (8-16); BLOOD UREA NITROGEN 22 mg/dl (7-20); CALCIUM 9.5 mg/dl (8.4-10.2); CARBON DIOXIDE 29 mmol/L (21-31); CHLORIDE 107 mmol/L (97-110); CREATININE 1.23 mg/dl (0.61-1.24); GLUCOSE 101 mg/dl (70-220); PHOSPHORUS 4.5 mg/dl (2.5-4.9); POTASSIUM 4.4 mmol/L (3.5-5.1); SODIUM 144 mmol/L (135-144)
[2017-07-31] MEDS: FAMOTIDINE 20 MG TAB PO ×2 (09:02→21:05)
[2017-07-31] MEDS: RIVAROXABAN 15 MG TABLET PO (09:02)
[2017-07-31] MEDS: ASPIRIN 81 MG TAB PO (09:02)
[2017-07-31] MEDS: DOCUSATE SODIUM 100 MG CAP PO ×2 (09:02→21:01)
[2017-07-31] MEDS: BACLOFEN 10 MG TAB PO (09:02)
[2017-07-31] MEDS: SENNA TAB PO (09:02)
[2017-07-31] MEDS: LINAGLIPTIN 5 MG TABLET PO (09:03)
[2017-07-31] MEDS: LISINOPRIL 5 MG TAB PO (09:03)
[2017-07-31] MEDS: METOPROLOL 50 MG TAB PO ×2 (09:04→21:05)
[2017-07-31] MEDS: ISOSORBIDE MONONITRATE(SR)60 MG TAB PO (09:04)
[2017-07-31] MEDS ORDERED: BACLOFEN 10 MG TAB PO (11:30)
[2017-07-31] MEDS: HYDROmorphONE 0.5 MG/0.5 ML SYG IV (16:03)
[2017-07-31] MEDS: LORAZEPAM 2 MG INJ IV (16:04)
[2017-07-31] MEDS: morphine 2 MG INJ IV (21:20)
[2017-07-31] MEDS: NITROGLYCERIN (SL) 0.4 MG TAB SL (21:38)
[2017-08-01] MEDS: INSULIN ASPART [NOVOLOG] 3 ML PEN SC ×2 (07:35→12:00)
[2017-08-01] MEDS: OXYCODONE/ACETAMINOPHEN (5/325) TAB PO (09:07)
[2017-08-01] MEDS: DOCUSATE SODIUM 100 MG CAP PO (09:08)
[2017-08-01] MEDS: SENNA TAB PO (09:09)
[2017-08-01] MEDS: FAMOTIDINE 20 MG TAB PO (09:09)
[2017-08-01] MEDS: ISOSORBIDE MONONITRATE(SR)60 MG TAB PO (09:09)
[2017-08-01] MEDS: LINAGLIPTIN 5 MG TABLET PO (09:09)
[2017-08-01] MEDS: ASPIRIN 81 MG TAB PO (09:10)
[2017-08-01] MEDS: RIVAROXABAN 15 MG TABLET PO (09:10)
[2017-08-01] MEDS: LISINOPRIL 5 MG TAB PO (09:10)
[2017-08-01] MEDS: METOPROLOL 50 MG TAB PO (09:11)
== END 2017-08-01 12:51 | disposition short-term general hospital (02) | DRG 92 ==
LOC: VRC 21:10
PROC: F07Z5ZZ Bed Mobility Treatment (ICD-10-PCS; principal; 2017-07-25)
PROC: F07Z8ZZ Transfer Training Treatment (ICD-10-PCS; 2017-07-25)
PROC: F07Z9ZZ Gait Training/Functional Ambulation Treatment (ICD-10-PCS; 2017-07-25)
PROC: F08Z2ZZ Grooming/Personal Hygiene Treatment (ICD-10-PCS; 2017-07-25)
PROC: F08Z1ZZ Dressing Techniques Treatment (ICD-10-PCS; 2017-07-25)
PROC: F08Z0ZZ Bathing/Showering Techniques Treatment (ICD-10-PCS; 2017-07-25)
PROC: 0HBRXZZ Excision of Toe Nail, External Approach (ICD-10-PCS; 2017-07-29)
PROC: 0HBRXZZ Excision of Toe Nail, External Approach (ICD-10-PCS; 2017-07-29)
PROC: 0HBRXZZ Excision of Toe Nail, External Approach (ICD-10-PCS; 2017-07-29)
PROC: 0HBRXZZ Excision of Toe Nail, External Approach (ICD-10-PCS; 2017-07-29)
PROC: 0HBRXZZ Excision of Toe Nail, External Approach (ICD-10-PCS; 2017-07-29)
PROC: 0HBRXZZ Excision of Toe Nail, External Approach (ICD-10-PCS; 2017-07-29)
PROC: 0HBRXZZ Excision of Toe Nail, External Approach (ICD-10-PCS; 2017-07-29)
PROC: 0HBRXZZ Excision of Toe Nail, External Approach (ICD-10-PCS; 2017-07-29)
PROC: 0HBRXZZ Excision of Toe Nail, External Approach (ICD-10-PCS; 2017-07-29)
PROC: 0HBRXZZ Excision of Toe Nail, External Approach (ICD-10-PCS; 2017-07-29)
DX: G72.81 Critical illness myopathy (principal); G81.94 Hemiplegia, unspecified affecting left nondominant side; I82.501 Chronic embolism and thrombosis of unspecified deep veins of right lower extremity; N17.9 Acute kidney failure, unspecified; E11.42 Type 2 diabetes mellitus with diabetic polyneuropathy; B35.1 Tinea unguium; D64.9 Anemia, unspecified; E78.5 Hyperlipidemia, unspecified; F41.9 Anxiety disorder, unspecified; F17.200 Nicotine dependence, unspecified, uncomplicated; I25.10 Atherosclerotic heart disease of native coronary artery without angina pectoris; I10 Essential (primary) hypertension; K59.00 Constipation, unspecified; M10.9 Gout, unspecified; M19.90 Unspecified osteoarthritis, unspecified site; R20.0 Anesthesia of skin; R07.9 Chest pain, unspecified; R26.9 Unspecified abnormalities of gait and mobility; Z74.09 Other reduced mobility; Z96.642 Presence of left artificial hip joint; Z95.1 Presence of aortocoronary bypass graft; Z79.01 Long term (current) use of anticoagulants; Z79.4 Long term (current) use of insulin; Z79.82 Long term (current) use of aspirin
CPT/HCPCS: 70544; 70549; 70551; 71045; 72141; 80048; 80053; 81003; 82962; 83735; 84100; 84484; 85025; 87081; 87086; 93005; 97110; 97116; 97163; 97167; 97530; 97535

== ENCOUNTER 2017-08-01 13:00 | Inpatient (IN) | payer BC ==
[2017-08-01] MEDS ORDERED: LACTULOSE 30ML CUP PO (14:30)
[2017-08-01] MEDS ORDERED: ONDANSETRON 4 MG INJ IV (14:30)
[2017-08-01] MEDS ORDERED: BACLOFEN 10 MG TAB PO (14:30)
[2017-08-01] MEDS ORDERED: DICLOFENAC SODIUM 1% GEL 100 GM TUBE TP (14:30)
[2017-08-01] MEDS ORDERED: BISACODYL 10 MG SUPP PR (14:30)
[2017-08-01] MEDS ORDERED: GLUCOSE GEL 15 GRAM TUBE BUCCAL (15:30)
[2017-08-01] MEDS ORDERED: DEXTROSE 50% 50 ML SYRINGE IV ×2 (15:30)
[2017-08-01] MEDS ORDERED: GLUCAGON 1 MG INJ IM (15:30)
[2017-08-01] MEDS ORDERED: GLUCOSE GEL 15 GRAM TUBE PO ×2 (15:30)
[2017-08-01] MEDS: INSULIN ASPART [NOVOLOG] 3 ML PEN SC ×2 (17:36→20:18)
[2017-08-01] MEDS: DOCUSATE SODIUM 100 MG CAP PO (20:28)
[2017-08-01] MEDS: METOPROLOL 50 MG TAB PO (20:28)
[2017-08-01] MEDS: FAMOTIDINE 20 MG TAB PO (20:28)
[2017-08-01] MEDS: ALPRAZOLAM 0.25 MG TAB PO (23:42)
[2017-08-01] MEDS: MAGNESIUM HYDROXIDE 30ML CUP PO (23:42)
[2017-08-02 07:07] LABS: ADD MAN DIFF? NO
[2017-08-02 07:17] LABS: BASOPHIL # 0.1 10^3/ul (0.0-0.1); BASOPHILS % 0.6 % (0.0-2.0); EOSINOPHILS # 0.1 10^3/ul (0.0-0.5); EOSINOPHILS % 1.3 % (0.0-7.0); HEMATOCRIT 38.3 % (42.0-52.0); HEMOGLOBIN 12.8 g/dl (14.0-18.0); LYMPHOCYTES # 1.4 10^3/ul (0.8-2.9); LYMPHOCYTES % 18.5 % (15.0-51.0); MEAN CORPUSCULAR HEMOGLOBIN 29.6 pg (29.0-33.0); MEAN CORPUSCULAR HGB CONC 33.4 g/dl (32.0-37.0); MEAN CORPUSCULAR VOLUME 88.7 fl (82.0-101.0); MONOCYTE # 0.4 10^3/ul (0.3-0.9); MONOCYTES % 5.7 % (0.0-11.0); NEUTROPHIL # 5.7 10^3/ul (1.6-7.5); NEUTROPHILS % 73.5 % (39.0-77.0); PLATELET COUNT 234 10^3/UL (140-415); RED BLOOD COUNT 4.32 10^6/ul (4.70-6.10); RED CELL DISTRIBUTION WIDTH 12.8 % (11.5-14.5)
[2017-08-02 07:17] LABS: WHITE BLOOD COUNT 7.7 10^3/ul (4.8-10.8)
[2017-08-02] MEDS: INSULIN ASPART [NOVOLOG] 3 ML PEN SC ×4 (07:55→20:44)
[2017-08-02 07:57] LABS: ANION GAP 18 (8-16); BLOOD UREA NITROGEN 20 mg/dl (7-20); CALCIUM 9.4 mg/dl (8.4-10.2); CARBON DIOXIDE 25 mmol/L (21-31); CHLORIDE 107 mmol/L (97-110); CREATININE 0.89 mg/dl (0.61-1.24); GLUCOSE 82 mg/dl (70-220); MAGNESIUM 2.3 mg/dl (1.7-2.5); PHOSPHORUS 4.2 mg/dl (2.5-4.9); SODIUM 145 mmol/L (135-144)
[2017-08-02] MEDS: DOCUSATE SODIUM 100 MG CAP PO ×2 (08:09→20:40)
[2017-08-02] MEDS: ASPIRIN 81 MG TAB PO (08:09)
[2017-08-02] MEDS: SENNA TAB PO (08:09)
[2017-08-02] MEDS: RIVAROXABAN 20 MG TABLET PO (08:10)
[2017-08-02] MEDS: LINAGLIPTIN 5 MG TABLET PO (08:10)
[2017-08-02] MEDS: FAMOTIDINE 20 MG TAB PO ×2 (08:10→20:40)
[2017-08-02] MEDS: ISOSORBIDE MONONITRATE(SR)60 MG TAB PO (08:12)
[2017-08-02] MEDS: LISINOPRIL 5 MG TAB PO (08:13)
[2017-08-02] MEDS: METOPROLOL 50 MG TAB PO ×2 (08:13→20:40)
[2017-08-02] MEDS: IOHEXOL 100 ML (11:12)
[2017-08-02] MEDS: SOD CHLORIDE 0.9% 100 ML (11:12)
[2017-08-02 12:13] LABS: TROPONIN-I 0.099 ng/ml (0.000-0.120)
[2017-08-02] MEDS: NITROGLYCERIN AEROSOL (4.9 GM) TL (12:15)
[2017-08-02] MEDS: POLYETHYLENE GLYCOL 17 GM PACKET PO (20:49)
[2017-08-02] MEDS: ALPRAZOLAM 0.25 MG TAB PO (23:28)
[2017-08-03] MEDS: RIVAROXABAN 20 MG TABLET PO (08:03)
[2017-08-03] MEDS: ISOSORBIDE MONONITRATE(SR)60 MG TAB PO (08:12)
[2017-08-03] MEDS: METOPROLOL 50 MG TAB PO ×2 (08:12→21:08)
[2017-08-03] MEDS: LISINOPRIL 5 MG TAB PO (08:13)
[2017-08-03] MEDS: SENNA TAB PO (08:14)
[2017-08-03] MEDS: FAMOTIDINE 20 MG TAB PO ×2 (08:14→21:07)
[2017-08-03] MEDS: ASPIRIN 81 MG TAB PO (08:15)
[2017-08-03] MEDS: MAGNESIUM HYDROXIDE 30ML CUP PO (08:15)
[2017-08-03] MEDS: DOCUSATE SODIUM 100 MG CAP PO ×2 (08:15→21:07)
[2017-08-03] MEDS: LINAGLIPTIN 5 MG TABLET PO (08:15)
[2017-08-03] MEDS: INSULIN ASPART [NOVOLOG] 3 ML PEN SC ×4 (08:25→21:00)
[2017-08-03] MEDS: NITROGLYCERIN (SL) 0.4 MG TAB SL ×2 (09:04→20:59)
[2017-08-03] MEDS: ALPRAZOLAM 0.25 MG TAB PO (23:09)
[2017-08-04] MEDS: INSULIN ASPART [NOVOLOG] 3 ML PEN SC ×4 (07:55→20:46)
[2017-08-04] MEDS: RIVAROXABAN 20 MG TABLET PO (08:51)
[2017-08-04] MEDS: METOPROLOL 50 MG TAB PO ×2 (08:52→20:39)
[2017-08-04] MEDS: ISOSORBIDE MONONITRATE(SR)60 MG TAB PO ×2 (08:52→10:30)
[2017-08-04] MEDS: ASPIRIN 81 MG TAB PO (08:52)
[2017-08-04] MEDS: FAMOTIDINE 20 MG TAB PO ×2 (08:52→20:37)
[2017-08-04] MEDS: DOCUSATE SODIUM 100 MG CAP PO ×2 (08:52→20:39)
[2017-08-04] MEDS: LISINOPRIL 5 MG TAB PO (08:53)
[2017-08-04] MEDS: LINAGLIPTIN 5 MG TABLET PO (08:53)
[2017-08-04] MEDS: SENNA TAB PO (08:53)
[2017-08-04] MEDS: MAGNESIUM HYDROXIDE 30ML CUP PO (20:45)
[2017-08-04] MEDS: ALPRAZOLAM 0.25 MG TAB PO (22:38)
[2017-08-05] MEDS: INSULIN ASPART [NOVOLOG] 3 ML PEN SC ×4 (07:55→22:16)
[2017-08-05 08:21] LABS: ADD MAN DIFF? NO
[2017-08-05 08:23] LABS: WHITE BLOOD COUNT 7.6 10^3/ul (4.8-10.8)
[2017-08-05 08:23] LABS: BASOPHILS % 0.5 % (0.0-2.0); EOSINOPHILS # 0.1 10^3/ul (0.0-0.5); EOSINOPHILS % 1.2 % (0.0-7.0); HEMATOCRIT 38.4 % (42.0-52.0); HEMOGLOBIN 12.7 g/dl (14.0-18.0); LYMPHOCYTES # 1.8 10^3/ul (0.8-2.9); LYMPHOCYTES % 23.5 % (15.0-51.0); MEAN CORPUSCULAR HEMOGLOBIN 29.5 pg (29.0-33.0); MEAN CORPUSCULAR HGB CONC 33.1 g/dl (32.0-37.0); MEAN CORPUSCULAR VOLUME 89.1 fl (82.0-101.0); MEAN PLATELET VOLUME 9.9 fl (7.4-10.4); MONOCYTE # 0.5 10^3/ul (0.3-0.9); MONOCYTES % 6.6 % (0.0-11.0); NEUTROPHIL # 5.1 10^3/ul (1.6-7.5); NEUTROPHILS % 67.9 % (39.0-77.0); PLATELET COUNT 224 10^3/UL (140-415); RED BLOOD COUNT 4.31 10^6/ul (4.70-6.10); RED CELL DISTRIBUTION WIDTH 12.8 % (11.5-14.5)
[2017-08-05 08:54] LABS: ANION GAP 17 (8-16); BLOOD UREA NITROGEN 23 mg/dl (7-20); CALCIUM 9.5 mg/dl (8.4-10.2); CARBON DIOXIDE 28 mmol/L (21-31); CHLORIDE 104 mmol/L (97-110); GLUCOSE 93 mg/dl (70-220); PHOSPHORUS 4.8 mg/dl (2.5-4.9); POTASSIUM 4.7 mmol/L (3.5-5.1); SODIUM 144 mmol/L (135-144)
[2017-08-05 08:56] LABS: MAGNESIUM 2.2 mg/dl (1.7-2.5)
[2017-08-05] MEDS: ISOSORBIDE MONONITRATE(SR)60 MG TAB PO (09:00)
[2017-08-05] MEDS: SENNA TAB PO (09:00)
[2017-08-05] MEDS: FAMOTIDINE 20 MG TAB PO ×2 (09:00→21:31)
[2017-08-05] MEDS: ASPIRIN 81 MG TAB PO (09:00)
[2017-08-05] MEDS: DOCUSATE SODIUM 100 MG CAP PO ×2 (09:00→21:31)
[2017-08-05] MEDS: LISINOPRIL 5 MG TAB PO (09:00)
[2017-08-05] MEDS: METOPROLOL 50 MG TAB PO ×2 (09:00→21:31)
[2017-08-05] MEDS: LINAGLIPTIN 5 MG TABLET PO (09:00)
[2017-08-05] MEDS: DEXTROSE 5%-0.9% NACL 1,000 ML IV (09:09)
[2017-08-05] MEDS ORDERED: MIDAZOLAM 1 MG/ML 2 ML INJ ×3 (13:40→18:06)
[2017-08-05] MEDS ORDERED: FENTAnyl 50 MCG/ML VIAL ×3 (13:40→18:06)
[2017-08-05] MEDS ORDERED: LIDOCAINE 1% (MDV) 20 ML INJ (13:40)
[2017-08-05] MEDS ORDERED: HEPARIN 1000 UNITS/ML 10 ML INJ ×2 (13:40→15:41)
[2017-08-05] MEDS ORDERED: NITROGLYCERIN (IC) 100 MCG/ML INJ ×2 (13:40→18:16)
[2017-08-05] MEDS ORDERED: IOHEXOL 350MG/ML 50 ML BTL (13:53)
[2017-08-05] MEDS ORDERED: SOD CHLORIDE 0.9% 500 ML (13:53)
[2017-08-05] MEDS ORDERED: VERAPAMIL 5 MG INJ (13:56)
[2017-08-05] MEDS ORDERED: CLOPIDOGREL 300 MG TAB (16:17)
[2017-08-05] MEDS ORDERED: NITROGLYCERIN (SL) 0.4 MG TAB (16:37)
[2017-08-05] MEDS ORDERED: IODIXANOL LOCM 100 ML BTL ×5 (16:43→18:59)
[2017-08-05] MEDS ORDERED: BIVALIRUDIN 250MG /NS 50 ML 50 ML IVPB ×3 (16:45→18:50)
[2017-08-05] MEDS ORDERED: hydrALAzine 20 MG INJ (18:14)
[2017-08-05] MEDS ORDERED: EPTIFIBATIDE 100 ML IV (18:45)
[2017-08-05] MEDS ORDERED: EPTIFIBATIDE 20 ML (18:45)
[2017-08-05] MEDS ORDERED: ONDANSETRON 4 MG INJ IV (19:30)
[2017-08-05] MEDS: HOLD all METFORMIN and METFORMIN CONTAINING medications for 48 hours post procedure. Chec XX (19:30)
[2017-08-05] MEDS: SOD CHLORIDE 0.9% 1,000 ML IV (20:01)
[2017-08-05] MEDS: OXYCODONE/ACETAMINOPHEN (5/325) TAB PO (20:37)
[2017-08-05] MEDS: ALPRAZOLAM 0.25 MG TAB PO (21:31)
[2017-08-05] MEDS: TICAGRELOR 90 MG TABLET PO (21:32)
[2017-08-05] MEDS: HYDROmorphONE 0.5 MG/0.5 ML SYG IV (22:06)
[2017-08-05] MEDS: EPTIFIBATIDE 100 ML IV (23:28)
[2017-08-06] MEDS: HYDROmorphONE 0.5 MG/0.5 ML SYG IV (02:26)
[2017-08-06 05:13] LABS: ADD MAN DIFF? NO
[2017-08-06 05:35] LABS: ANION GAP 13 (8-16); BLOOD UREA NITROGEN 20 mg/dl (7-20); CALCIUM 8.6 mg/dl (8.4-10.2); CARBON DIOXIDE 23 mmol/L (21-31); CHLORIDE 107 mmol/L (97-110); GLUCOSE 139 mg/dl (70-220); MAGNESIUM 1.9 mg/dl (1.7-2.5); SODIUM 139 mmol/L (135-144)
[2017-08-06] MEDS: EPTIFIBATIDE 100 ML IV (05:44)
[2017-08-06 05:53] LABS: WHITE BLOOD COUNT 9.3 10^3/ul (4.8-10.8)
[2017-08-06 05:53] LABS: BASOPHILS % 0.4 % (0.0-2.0); EOSINOPHILS % 0.1 % (0.0-7.0); HEMATOCRIT 28.9 % (42.0-52.0); LYMPHOCYTES # 1.3 10^3/ul (0.8-2.9); LYMPHOCYTES % 14.1 % (15.0-51.0); MEAN CORPUSCULAR HEMOGLOBIN 30.3 pg (29.0-33.0); MEAN CORPUSCULAR HGB CONC 34.6 g/dl (32.0-37.0); MEAN CORPUSCULAR VOLUME 87.6 fl (82.0-101.0); MEAN PLATELET VOLUME 11.5 fl (7.4-10.4); MONOCYTE # 0.5 10^3/ul (0.3-0.9); MONOCYTES % 5.7 % (0.0-11.0); NEUTROPHIL # 7.3 10^3/ul (1.6-7.5); NEUTROPHILS % 79.4 % (39.0-77.0); PLATELET COUNT 106 10^3/UL (140-415); RED CELL DISTRIBUTION WIDTH 12.8 % (11.5-14.5)
[2017-08-06] MEDS: FAMOTIDINE 20 MG TAB PO ×2 (08:46→21:22)
[2017-08-06] MEDS: LISINOPRIL 5 MG TAB PO (08:46)
[2017-08-06] MEDS: LINAGLIPTIN 5 MG TABLET PO (08:46)
[2017-08-06] MEDS: ASPIRIN 81 MG TAB PO (08:47)
[2017-08-06] MEDS: ISOSORBIDE MONONITRATE(SR)60 MG TAB PO (08:47)
[2017-08-06] MEDS: METOPROLOL 50 MG TAB PO ×2 (08:47→21:22)
[2017-08-06] MEDS: TICAGRELOR 90 MG TABLET PO ×2 (08:50→21:22)
[2017-08-06] MEDS: SENNA TAB PO (08:55)
[2017-08-06] MEDS: INSULIN ASPART [NOVOLOG] 3 ML PEN SC ×4 (08:55→21:00)
[2017-08-06] MEDS: DOCUSATE SODIUM 100 MG CAP PO ×2 (08:55→21:21)
[2017-08-06 09:57] LABS: PROSTATE SPECIFIC ANTIGEN 2.7 ng/ml (0.0-4.0)
[2017-08-06] MEDS: ALPRAZOLAM 0.25 MG TAB PO (14:42)
[2017-08-06] MEDS: OXYCODONE/ACETAMINOPHEN (5/325) TAB PO (14:43)
[2017-08-06] MEDS: RIVAROXABAN 20 MG TABLET PO (18:16)
[2017-08-06] MEDS: HOLD all METFORMIN and METFORMIN CONTAINING medications for 48 hours post procedure. Chec XX (19:30)
[2017-08-07] MEDS: SOD CHLORIDE 0.9% 500 ML IV (04:55)
[2017-08-07 06:11] LABS: ADD MAN DIFF? NO
[2017-08-07 06:19] LABS: BASOPHILS % 0.5 % (0.0-2.0); EOSINOPHILS # 0.1 10^3/ul (0.0-0.5); EOSINOPHILS % 1.1 % (0.0-7.0); HEMATOCRIT 27.9 % (42.0-52.0); HEMOGLOBIN 8.9 g/dl (14.0-18.0); LYMPHOCYTES # 1.4 10^3/ul (0.8-2.9); LYMPHOCYTES % 18.9 % (15.0-51.0); MEAN CORPUSCULAR HEMOGLOBIN 29.9 pg (29.0-33.0); MEAN CORPUSCULAR HGB CONC 31.9 g/dl (32.0-37.0); MEAN CORPUSCULAR VOLUME 93.6 fl (82.0-101.0); MEAN PLATELET VOLUME 11.9 fl (7.4-10.4); MONOCYTE # 0.5 10^3/ul (0.3-0.9); MONOCYTES % 6.3 % (0.0-11.0); NEUTROPHIL # 5.4 10^3/ul (1.6-7.5); NEUTROPHILS % 72.7 % (39.0-77.0); PLATELET COUNT 118 10^3/UL (140-415); RED BLOOD COUNT 2.98 10^6/ul (4.70-6.10); RED CELL DISTRIBUTION WIDTH 13.3 % (11.5-14.5)
[2017-08-07 06:19] LABS: WHITE BLOOD COUNT 7.5 10^3/ul (4.8-10.8)
[2017-08-07 06:56] LABS: ANION GAP 15 (8-16); BLOOD UREA NITROGEN 16 mg/dl (7-20); CALCIUM 8.8 mg/dl (8.4-10.2); CARBON DIOXIDE 24 mmol/L (21-31); CHLORIDE 108 mmol/L (97-110); CREATININE 0.96 mg/dl (0.61-1.24); GLUCOSE 84 mg/dl (70-220); MAGNESIUM 1.8 mg/dl (1.7-2.5); PHOSPHORUS 4.2 mg/dl (2.5-4.9); POTASSIUM 4.4 mmol/L (3.5-5.1); SODIUM 143 mmol/L (135-144)
[2017-08-07 07:31] LABS: ANISOCYTOSIS 1+ (0-0); BURR CELLS 1+ (0-0); GIANT THROMBO% (M) 1 % (0-0); LYMPHOCYTES #M 2.1 10^3/ul (0.8-2.9); LYMPHOCYTES % (M) 28 % (15-51); MICROCYTOSIS 1+ (0-0); MONOCYTE #M 0.2 10^3/ul (0.3-0.9); MONOCYTES % (M) 3 % (0-11); PLATELET ESTIMATE DECREASED; POIKILOCYTOSIS 1+ (0-0); POLYCHROMASIA 1+ (0-0); SEGMENTED NEUTROPHILS (M) % 69 % (39-77); SMUDGE%M 2 % (0-0)
[2017-08-07] MEDS: FAMOTIDINE 20 MG TAB PO ×2 (08:58→20:35)
[2017-08-07] MEDS: DOCUSATE SODIUM 100 MG CAP PO ×2 (08:58→20:35)
[2017-08-07] MEDS: ASPIRIN 81 MG TAB PO (08:58)
[2017-08-07] MEDS: METOPROLOL 50 MG TAB PO (08:58)
[2017-08-07] MEDS: LINAGLIPTIN 5 MG TABLET PO (08:58)
[2017-08-07] MEDS: SENNA TAB PO (08:58)
[2017-08-07] MEDS: INSULIN ASPART [NOVOLOG] 3 ML PEN SC ×4 (08:59→20:34)
[2017-08-07] MEDS: TICAGRELOR 90 MG TABLET PO ×2 (09:47→20:37)
[2017-08-07] MEDS: ISOSORBIDE MONONITRATE(SR)60 MG TAB PO (10:21)
[2017-08-07 10:49] LABS: HEMOGLOBIN 8.6 g/dl (14.0-18.0)
[2017-08-07 11:11] LABS: CREATINE KINASE 73 IU/L (23-200)
[2017-08-07 11:22] LABS: CK INDEX 3.4
[2017-08-07 11:23] LABS: CK-MB 2.47 ng/ml (0.0-2.4); TROPONIN-I 0.806 ng/ml (0.000-0.120)
[2017-08-07] MEDS: ALPRAZOLAM 0.25 MG TAB PO ×2 (11:29→22:51)
[2017-08-07] MEDS: LISINOPRIL 5 MG TAB PO (11:30)
[2017-08-07] MEDS: MAGNESIUM HYDROXIDE 30ML CUP PO (12:05)
[2017-08-07] MEDS ORDERED: LIDOCAINE 1% (MDV) 20 ML INJ (14:10)
[2017-08-07] MEDS ORDERED: IODIXANOL LOCM 100 ML BTL (14:10)
[2017-08-07 14:34] LABS: TROPONIN-I 0.771 ng/ml (0.000-0.120)
[2017-08-07] MEDS ORDERED: VERAPAMIL 5 MG INJ (14:59)
[2017-08-07] MEDS ORDERED: HEPARIN 1000 UNITS/ML 10 ML INJ (14:59)
[2017-08-07] MEDS ORDERED: NITROGLYCERIN (IC) 100 MCG/ML INJ (15:00)
[2017-08-07] MEDS ORDERED: FENTAnyl 50 MCG/ML VIAL (15:06)
[2017-08-07] MEDS ORDERED: MIDAZOLAM 1 MG/ML 2 ML INJ (15:07)
[2017-08-07] MEDS: HOLD all METFORMIN and METFORMIN CONTAINING medications for 48 hours post procedure. Chec XX (17:14)
[2017-08-07] MEDS: RIVAROXABAN 20 MG TABLET PO (17:39)
[2017-08-07] MEDS: SOD CHLORIDE 0.9% 1,000 ML IV (17:39)
[2017-08-07] MEDS: METOPROLOL 25 MG TAB PO (20:38)
[2017-08-08] MEDS: SOD CHLORIDE 0.9% 1,000 ML IV (00:35)
[2017-08-08] MEDS: ZOLPIDEM 5 MG TAB PO (02:37)
[2017-08-08 06:03] LABS: ADD MAN DIFF? NO
[2017-08-08 06:19] LABS: BASOPHILS % 0.5 % (0.0-2.0); EOSINOPHILS # 0.1 10^3/ul (0.0-0.5); HEMATOCRIT 23.3 % (42.0-52.0); HEMOGLOBIN 7.7 g/dl (14.0-18.0); LYMPHOCYTES # 1.2 10^3/ul (0.8-2.9); MEAN CORPUSCULAR VOLUME 90.7 fl (82.0-101.0); MEAN PLATELET VOLUME 10.7 fl (7.4-10.4); MONOCYTE # 0.5 10^3/ul (0.3-0.9); MONOCYTES % 6.2 % (0.0-11.0); NEUTROPHIL # 5.9 10^3/ul (1.6-7.5); NEUTROPHILS % 75.8 % (39.0-77.0); PLATELET COUNT 114 10^3/UL (140-415); RED BLOOD COUNT 2.57 10^6/ul (4.70-6.10); RED CELL DISTRIBUTION WIDTH 13.2 % (11.5-14.5)
[2017-08-08 06:19] LABS: WHITE BLOOD COUNT 7.7 10^3/ul (4.8-10.8)
[2017-08-08 06:51] LABS: ANION GAP 13 (8-16); BLOOD UREA NITROGEN 15 mg/dl (7-20); CALCIUM 8.7 mg/dl (8.4-10.2); CARBON DIOXIDE 25 mmol/L (21-31); CHLORIDE 111 mmol/L (97-110); CREATININE 1.08 mg/dl (0.61-1.24); GLUCOSE 84 mg/dl (70-220); PHOSPHORUS 4.6 mg/dl (2.5-4.9); POTASSIUM 4.1 mmol/L (3.5-5.1); SODIUM 145 mmol/L (135-144)
[2017-08-08] MEDS: INSULIN ASPART [NOVOLOG] 3 ML PEN SC ×4 (07:35→20:42)
[2017-08-08 08:54] LABS: RETICULOCYTE RBC 2.54
[2017-08-08 08:54] LABS: RETICULOCYTE COUNT # 0.102 X10^6 (0.020-0.110)
[2017-08-08] MEDS: DOCUSATE SODIUM 100 MG CAP PO ×2 (09:08→20:39)
[2017-08-08] MEDS: LINAGLIPTIN 5 MG TABLET PO (09:09)
[2017-08-08] MEDS: FAMOTIDINE 20 MG TAB PO ×2 (09:09→20:39)
[2017-08-08] MEDS: SENNA TAB PO (09:09)
[2017-08-08] MEDS: ASPIRIN 81 MG TAB PO (09:09)
[2017-08-08] MEDS: METOPROLOL 25 MG TAB PO ×2 (09:09→20:42)
[2017-08-08] MEDS: ISOSORBIDE MONONITRATE(SR)60 MG TAB PO (09:10)
[2017-08-08] MEDS: TICAGRELOR 90 MG TABLET PO ×2 (09:11→20:40)
[2017-08-08 09:19] LABS: IRON 48 ug/dl (35-150)
[2017-08-08 09:28] LABS: % IRON SATURATION 16 % SAT (22-52); TOTAL IRON BINDING CAPACITY 308 ug/dl (241-421)
[2017-08-08 11:58] LABS: FERRITIN 82.9 ng/ml (11.1-264.0)
[2017-08-08 12:22] LABS: HEMATOCRIT 24.6 % (42.0-52.0); HEMOGLOBIN 8.2 g/dl (14.0-18.0)
[2017-08-08 15:32] LABS: HEPARIN INDUCED PLATELET AB POSITIVE (NEGATIVE)
[2017-08-08 17:01] LABS: HEMOGLOBIN 7.8 g/dl (14.0-18.0)
[2017-08-08] MEDS: ACETAMINOPHEN 325 MG TAB PO (19:15)
[2017-08-08] MEDS: METHYLPREDNISOLONE 40 MG INJ IV (21:08)
[2017-08-08 22:02] LABS: HEMATOCRIT 24.1 % (42.0-52.0); HEMOGLOBIN 8.1 g/dl (14.0-18.0)
[2017-08-09 06:45] LABS: ADD MAN DIFF? NO
[2017-08-09 07:03] LABS: ABNORMAL IP MESSAGE 1; BASOPHILS % 0.3 % (0.0-2.0); HEMATOCRIT 26.9 % (42.0-52.0); HEMOGLOBIN 8.9 g/dl (14.0-18.0); LYMPHOCYTES # 0.5 10^3/ul (0.8-2.9); LYMPHOCYTES % 6.4 % (15.0-51.0); MEAN CORPUSCULAR HEMOGLOBIN 29.9 pg (29.0-33.0); MEAN CORPUSCULAR HGB CONC 33.1 g/dl (32.0-37.0); MEAN CORPUSCULAR VOLUME 90.3 fl (82.0-101.0); MEAN PLATELET VOLUME 10.5 fl (7.4-10.4); MONOCYTE # 0.1 10^3/ul (0.3-0.9); MONOCYTES % 1.3 % (0.0-11.0); NEUTROPHIL # 6.5 10^3/ul (1.6-7.5); NEUTROPHILS % 91.4 % (39.0-77.0); PLATELET COUNT 146 10^3/UL (140-415); POSITIVE DIFF @See below; RED BLOOD COUNT 2.98 10^6/ul (4.70-6.10); RED CELL DISTRIBUTION WIDTH 13.4 % (11.5-14.5)
[2017-08-09 07:03] LABS: WHITE BLOOD COUNT 7.1 10^3/ul (4.8-10.8)
[2017-08-09 07:40] LABS: ANION GAP 20 (8-16); BLOOD UREA NITROGEN 17 mg/dl (7-20); CALCIUM 9.6 mg/dl (8.4-10.2); CARBON DIOXIDE 23 mmol/L (21-31); CHLORIDE 107 mmol/L (97-110); CREATININE 0.96 mg/dl (0.61-1.24); GLUCOSE 165 mg/dl (70-220); MAGNESIUM 1.9 mg/dl (1.7-2.5); PHOSPHORUS 5.1 mg/dl (2.5-4.9); POTASSIUM 4.5 mmol/L (3.5-5.1); SODIUM 145 mmol/L (135-144)
[2017-08-09] MEDS: DOCUSATE SODIUM 100 MG CAP PO ×2 (08:17→21:46)
[2017-08-09] MEDS: LINAGLIPTIN 5 MG TABLET PO (08:17)
[2017-08-09] MEDS: SENNA TAB PO (08:17)
[2017-08-09] MEDS: FAMOTIDINE 20 MG TAB PO ×2 (08:18→21:46)
[2017-08-09] MEDS: ASPIRIN 81 MG TAB PO (08:18)
[2017-08-09] MEDS: METOPROLOL 25 MG TAB PO ×2 (08:19→21:47)
[2017-08-09] MEDS: ISOSORBIDE MONONITRATE(SR)60 MG TAB PO (08:19)
[2017-08-09] MEDS: TICAGRELOR 90 MG TABLET PO ×2 (08:34→21:48)
[2017-08-09] MEDS: INSULIN ASPART [NOVOLOG] 3 ML PEN SC ×4 (08:35→21:00)
[2017-08-09] MEDS ORDERED: DEXMEDETOMIDINE HCL 200 MCG in SOD CHLORIDE 0.9% 48 ML IV (09:30)
[2017-08-09 10:52] LABS: HEMATOCRIT 25.4 % (42.0-52.0); HEMOGLOBIN 8.5 g/dl (14.0-18.0)
[2017-08-09] MEDS: RIVAROXABAN 20 MG TABLET PO (18:32)
[2017-08-09 19:23] LABS: HEMATOCRIT 24.8 % (42.0-52.0); HEMOGLOBIN 8.3 g/dl (14.0-18.0)
[2017-08-09] MEDS: FERROUS SULFATE (EC) 325 MG TAB PO (21:46)
[2017-08-09] MEDS: ALPRAZOLAM 0.25 MG TAB PO (23:46)
[2017-08-10 00:44] LABS: HEMATOCRIT 24.1 % (42.0-52.0); HEMOGLOBIN 8.1 g/dl (14.0-18.0)
[2017-08-10 06:58] LABS: ADD MAN DIFF? NO
[2017-08-10 07:35] LABS: BASOPHIL # 0.1 10^3/ul (0.0-0.1); BASOPHILS % 0.7 % (0.0-2.0); EOSINOPHILS # 0.1 10^3/ul (0.0-0.5); EOSINOPHILS % 0.9 % (0.0-7.0); HEMATOCRIT 24.8 % (42.0-52.0); HEMOGLOBIN 8.2 g/dl (14.0-18.0); LYMPHOCYTES # 1.5 10^3/ul (0.8-2.9); LYMPHOCYTES % 20.1 % (15.0-51.0); MEAN CORPUSCULAR HGB CONC 33.1 g/dl (32.0-37.0); MEAN CORPUSCULAR VOLUME 90.8 fl (82.0-101.0); MEAN PLATELET VOLUME 11.2 fl (7.4-10.4); MONOCYTE # 0.5 10^3/ul (0.3-0.9); MONOCYTES % 7.2 % (0.0-11.0); NEUTROPHIL # 5.2 10^3/ul (1.6-7.5); NEUTROPHILS % 70.7 % (39.0-77.0); PLATELET COUNT 122 10^3/UL (140-415); RED BLOOD COUNT 2.73 10^6/ul (4.70-6.10); RED CELL DISTRIBUTION WIDTH 13.7 % (11.5-14.5)
[2017-08-10 07:35] LABS: WHITE BLOOD COUNT 7.4 10^3/ul (4.8-10.8)
[2017-08-10] MEDS: INSULIN ASPART [NOVOLOG] 3 ML PEN SC ×4 (07:55→21:00)
[2017-08-10 08:18] LABS: ANION GAP 16 (8-16); BLOOD UREA NITROGEN 20 mg/dl (7-20); CALCIUM 9.1 mg/dl (8.4-10.2); CARBON DIOXIDE 25 mmol/L (21-31); CHLORIDE 110 mmol/L (97-110); CREATININE 1.12 mg/dl (0.61-1.24); GLUCOSE 108 mg/dl (70-220); POTASSIUM 4.4 mmol/L (3.5-5.1); SODIUM 147 mmol/L (135-144)
[2017-08-10] MEDS: ISOSORBIDE MONONITRATE(SR)60 MG TAB PO (10:02)
[2017-08-10] MEDS: DOCUSATE SODIUM 100 MG CAP PO ×2 (10:02→21:34)
[2017-08-10] MEDS: TICAGRELOR 90 MG TABLET PO ×2 (10:02→22:41)
[2017-08-10] MEDS: FAMOTIDINE 20 MG TAB PO ×2 (10:02→21:34)
[2017-08-10] MEDS: SENNA TAB PO (10:02)
[2017-08-10] MEDS: LINAGLIPTIN 5 MG TABLET PO (10:03)
[2017-08-10] MEDS: METOPROLOL 25 MG TAB PO ×2 (10:03→21:35)
[2017-08-10] MEDS: FERROUS SULFATE (EC) 325 MG TAB PO ×2 (10:03→21:34)
[2017-08-10] MEDS: ASPIRIN 81 MG TAB PO (10:04)
[2017-08-10] MEDS: RIVAROXABAN 20 MG TABLET PO ×2 (17:30→17:41)
[2017-08-11 07:45] LABS: ADD MAN DIFF? NO
[2017-08-11 07:46] LABS: WHITE BLOOD COUNT 7.6 10^3/ul (4.8-10.8)
[2017-08-11 07:46] LABS: BASOPHIL # 0.1 10^3/ul (0.0-0.1); BASOPHILS % 0.8 % (0.0-2.0); EOSINOPHILS # 0.1 10^3/ul (0.0-0.5); EOSINOPHILS % 1.3 % (0.0-7.0); HEMATOCRIT 25.7 % (42.0-52.0); HEMOGLOBIN 8.5 g/dl (14.0-18.0); LYMPHOCYTES # 1.3 10^3/ul (0.8-2.9); LYMPHOCYTES % 16.5 % (15.0-51.0); MEAN CORPUSCULAR HEMOGLOBIN 30.2 pg (29.0-33.0); MEAN CORPUSCULAR HGB CONC 33.1 g/dl (32.0-37.0); MEAN CORPUSCULAR VOLUME 91.5 fl (82.0-101.0); MEAN PLATELET VOLUME 11.1 fl (7.4-10.4); MONOCYTE # 0.5 10^3/ul (0.3-0.9); MONOCYTES % 7.1 % (0.0-11.0); NEUTROPHIL # 5.6 10^3/ul (1.6-7.5); NEUTROPHILS % 73.5 % (39.0-77.0); PLATELET COUNT 127 10^3/UL (140-415); RED BLOOD COUNT 2.81 10^6/ul (4.70-6.10); RED CELL DISTRIBUTION WIDTH 14.2 % (11.5-14.5)
[2017-08-11] MEDS: INSULIN ASPART [NOVOLOG] 3 ML PEN SC ×4 (08:00→21:00)
[2017-08-11] MEDS: LINAGLIPTIN 5 MG TABLET PO (08:01)
[2017-08-11] MEDS: DOCUSATE SODIUM 100 MG CAP PO ×2 (08:01→21:22)
[2017-08-11] MEDS: SENNA TAB PO (08:01)
[2017-08-11] MEDS: FERROUS SULFATE (EC) 325 MG TAB PO ×2 (08:01→21:22)
[2017-08-11] MEDS: FAMOTIDINE 20 MG TAB PO ×2 (08:01→21:22)
[2017-08-11] MEDS: ASPIRIN 81 MG TAB PO (08:01)
[2017-08-11] MEDS: METOPROLOL 25 MG TAB PO ×2 (08:03→21:22)
[2017-08-11] MEDS: ISOSORBIDE MONONITRATE(SR)60 MG TAB PO (08:03)
[2017-08-11] MEDS: TICAGRELOR 90 MG TABLET PO ×2 (08:09→21:29)
[2017-08-11 08:42] LABS: ANION GAP 15 (8-16); BLOOD UREA NITROGEN 24 mg/dl (7-20); CALCIUM 9.3 mg/dl (8.4-10.2); CARBON DIOXIDE 26 mmol/L (21-31); CHLORIDE 108 mmol/L (97-110); CREATININE 1.14 mg/dl (0.61-1.24); GLUCOSE 93 mg/dl (70-220); PHOSPHORUS 5.3 mg/dl (2.5-4.9); POTASSIUM 4.3 mmol/L (3.5-5.1); SODIUM 145 mmol/L (135-144)
[2017-08-11] MEDS: RIVAROXABAN 20 MG TABLET PO (17:14)
[2017-08-11] MEDS: MAGNESIUM HYDROXIDE 30ML CUP PO (21:33)
[2017-08-12] MEDS ORDERED: ISOSORBIDE MONONITRATE(SR)60 MG TAB PO
[2017-08-12] MEDS ORDERED: METOPROLOL 25 MG TAB PO
[2017-08-12] MEDS ORDERED: LINAGLIPTIN 5 MG TABLET PO
[2017-08-12] MEDS ORDERED: RIVAROXABAN 20 MG TABLET PO
[2017-08-12] MEDS ORDERED: TICAGRELOR 90 MG TABLET PO
[2017-08-12 07:50] LABS: ADD MAN DIFF? NO
[2017-08-12 07:58] LABS: BASOPHIL # 0.1 10^3/ul (0.0-0.1); BASOPHILS % 0.8 % (0.0-2.0); EOSINOPHILS # 0.1 10^3/ul (0.0-0.5); EOSINOPHILS % 1.8 % (0.0-7.0); HEMOGLOBIN 8.5 g/dl (14.0-18.0); LYMPHOCYTES # 1.3 10^3/ul (0.8-2.9); LYMPHOCYTES % 19.5 % (15.0-51.0); MEAN CORPUSCULAR HEMOGLOBIN 29.9 pg (29.0-33.0); MEAN CORPUSCULAR HGB CONC 32.7 g/dl (32.0-37.0); MEAN CORPUSCULAR VOLUME 91.5 fl (82.0-101.0); MEAN PLATELET VOLUME 11.3 fl (7.4-10.4); MONOCYTE # 0.5 10^3/ul (0.3-0.9); MONOCYTES % 8.2 % (0.0-11.0); NEUTROPHIL # 4.5 10^3/ul (1.6-7.5); NEUTROPHILS % 69.1 % (39.0-77.0); PLATELET COUNT 126 10^3/UL (140-415); RED BLOOD COUNT 2.84 10^6/ul (4.70-6.10); RED CELL DISTRIBUTION WIDTH 14.4 % (11.5-14.5)
[2017-08-12 07:58] LABS: WHITE BLOOD COUNT 6.6 10^3/ul (4.8-10.8)
[2017-08-12] MEDS: INSULIN ASPART [NOVOLOG] 3 ML PEN SC ×3 (08:00→17:15)
[2017-08-12] MEDS: DOCUSATE SODIUM 100 MG CAP PO (08:20)
[2017-08-12] MEDS: FERROUS SULFATE (EC) 325 MG TAB PO (08:20)
[2017-08-12] MEDS: SENNA TAB PO (08:20)
[2017-08-12] MEDS: FAMOTIDINE 20 MG TAB PO (08:21)
[2017-08-12] MEDS: METOPROLOL 25 MG TAB PO (08:21)
[2017-08-12] MEDS: ASPIRIN 81 MG TAB PO (08:21)
[2017-08-12 08:24] LABS: ANION GAP 14 (8-16); BLOOD UREA NITROGEN 21 mg/dl (7-20); CALCIUM 9.3 mg/dl (8.4-10.2); CARBON DIOXIDE 27 mmol/L (21-31); CHLORIDE 107 mmol/L (97-110); CREATININE 1.15 mg/dl (0.61-1.24); GLUCOSE 101 mg/dl (70-220); MAGNESIUM 2.2 mg/dl (1.7-2.5); PHOSPHORUS 4.7 mg/dl (2.5-4.9); POTASSIUM 4.1 mmol/L (3.5-5.1); SODIUM 144 mmol/L (135-144)
[2017-08-12] MEDS: TICAGRELOR 90 MG TABLET PO (08:24)
[2017-08-12] MEDS: LINAGLIPTIN 5 MG TABLET PO (09:55)
[2017-08-12] MEDS: ISOSORBIDE MONONITRATE(SR)60 MG TAB PO (09:55)
[2017-08-12] MEDS: ALPRAZOLAM 0.25 MG TAB PO (17:15)
[2017-08-12] MEDS: RIVAROXABAN 20 MG TABLET PO (17:15)
== END 2017-08-12 18:40 | disposition home health service (06) | DRG 246 ==
LOC: ICU 08-05 17:56 → MS4 08-09 15:32 → TEL 13:00
PROVIDERS: Internal Medicine
PROC: 027037Z Dilation of Coronary Artery, One Artery with Four or More Drug-eluting Intraluminal Devices, Percutaneous Approach (ICD-10-PCS; principal; 2017-08-05 14:00)
PROC: 3E033PZ Introduction of Platelet Inhibitor into Peripheral Vein, Percutaneous Approach (ICD-10-PCS; 2017-08-05 14:00)
PROC: 4A023N7 Measurement of Cardiac Sampling and Pressure, Left Heart, Percutaneous Approach (ICD-10-PCS; 2017-08-05 14:00)
PROC: 02C03ZZ Extirpation of Matter from Coronary Artery, One Artery, Percutaneous Approach (ICD-10-PCS; 2017-08-05 14:00)
PROC: 3E07317 Introduction of Other Thrombolytic into Coronary Artery, Percutaneous Approach (ICD-10-PCS; 2017-08-05 14:00)
PROC: B212YZZ Fluoroscopy of Single Coronary Artery Bypass Graft using Other Contrast (ICD-10-PCS; 2017-08-05 14:00)
PROC: B218YZZ Fluoroscopy of Left Internal Mammary Bypass Graft using Other Contrast (ICD-10-PCS; 2017-08-05 14:00)
PROC: B211YZZ Fluoroscopy of Multiple Coronary Arteries using Other Contrast (ICD-10-PCS; 2017-08-05 14:00)
PROC: B215YZZ Fluoroscopy of Left Heart using Other Contrast (ICD-10-PCS; 2017-08-05 14:00)
PROC: 4A023N7 Measurement of Cardiac Sampling and Pressure, Left Heart, Percutaneous Approach (ICD-10-PCS; 2017-08-05 14:15)
PROC: B212YZZ Fluoroscopy of Single Coronary Artery Bypass Graft using Other Contrast (ICD-10-PCS; 2017-08-05 14:15)
PROC: B211YZZ Fluoroscopy of Multiple Coronary Arteries using Other Contrast (ICD-10-PCS; 2017-08-05 14:15)
PROC: B41DYZZ Fluoroscopy of Aorta and Bilateral Lower Extremity Arteries using Other Contrast (ICD-10-PCS; 2017-08-05 14:15)
DX: I25.719 Atherosclerosis of autologous vein coronary artery bypass graft(s) with unspecified angina pectoris (principal); I21.4 Non-ST elevation (NSTEMI) myocardial infarction; T82.867A Thrombosis due to cardiac prosthetic devices, implants and grafts, initial encounter; I82.501 Chronic embolism and thrombosis of unspecified deep veins of right lower extremity; N17.9 Acute kidney failure, unspecified; L76.32 Postprocedural hematoma of skin and subcutaneous tissue following other procedure; I25.729 Atherosclerosis of autologous artery coronary artery bypass graft(s) with unspecified angina pectoris; I25.119 Atherosclerotic heart disease of native coronary artery with unspecified angina pectoris; I10 Essential (primary) hypertension; M10.9 Gout, unspecified; E78.5 Hyperlipidemia, unspecified; M48.02 Spinal stenosis, cervical region; F17.290 Nicotine dependence, other tobacco product, uncomplicated; Z79.82 Long term (current) use of aspirin; E11.40 Type 2 diabetes mellitus with diabetic neuropathy, unspecified; B35.1 Tinea unguium; D75.82 Heparin induced thrombocytopenia (HIT); F41.9 Anxiety disorder, unspecified; R53.1 Weakness; H53.8 Other visual disturbances; D50.9 Iron deficiency anemia, unspecified; Y84.0 Cardiac catheterization as the cause of abnormal reaction of the patient, or of later complication, without mention of misadventure at the time of the procedure; Y92.230 Patient room in hospital as the place of occurrence of the external cause
CPT/HCPCS: 70450; 74176; 75574; 80048; 81270; 82550; 82553; 82728; 82962; 83540; 83735; 84100; 84153; 84154; 84484; 85014; 85018; 85025; 85045; 85384; 85613; 85810; 86022; 86147; 86850; 86900; 86901; 86920; 87081; 92943; 93005; 93308; 93458; 93459; 93926; 97161

== ENCOUNTER 2017-08-16 21:02 | Inpatient (IN) | payer BC ==
[2017-08-16 21:17] LABS: ADD MAN DIFF? NO
[2017-08-16 21:20] LABS: WHITE BLOOD COUNT 10.6 10^3/ul (4.8-10.8)
[2017-08-16 21:20] LABS: BASOPHILS % 0.4 % (0.0-2.0); EOSINOPHILS # 0.2 10^3/ul (0.0-0.5); EOSINOPHILS % 1.4 % (0.0-7.0); HEMATOCRIT 32.6 % (42.0-52.0); HEMOGLOBIN 10.7 g/dl (14.0-18.0); LYMPHOCYTES # 1.7 10^3/ul (0.8-2.9); LYMPHOCYTES % 16.3 % (15.0-51.0); MEAN CORPUSCULAR HEMOGLOBIN 30.2 pg (29.0-33.0); MEAN CORPUSCULAR HGB CONC 32.8 g/dl (32.0-37.0); MEAN CORPUSCULAR VOLUME 92.1 fl (82.0-101.0); MEAN PLATELET VOLUME 10.6 fl (7.4-10.4); MONOCYTE # 0.6 10^3/ul (0.3-0.9); NEUTROPHILS % 75.2 % (39.0-77.0); PLATELET COUNT 180 10^3/UL (140-415); RED BLOOD COUNT 3.54 10^6/ul (4.70-6.10); RED CELL DISTRIBUTION WIDTH 15.8 % (11.5-14.5)
[2017-08-16] MEDS: LORAZEPAM 2 MG INJ IV (21:22)
[2017-08-16] MEDS: ONDANSETRON 4 MG INJ IV (21:22)
[2017-08-16] MEDS: morphine 4 MG/ML VIAL IV (21:23)
[2017-08-16 21:38] LABS: ANION GAP 22 (8-16); BLOOD UREA NITROGEN 19 mg/dl (7-20); CALCIUM 9.8 mg/dl (8.4-10.2); CARBON DIOXIDE 22 mmol/L (21-31); CHLORIDE 109 mmol/L (97-110); CREATININE 1.19 mg/dl (0.61-1.24); GLUCOSE 135 mg/dl (70-220); POTASSIUM 3.3 mmol/L (3.5-5.1); SODIUM 150 mmol/L (135-144)
[2017-08-16 21:39] LABS: INR 1.88; PT RATIO 1.7
[2017-08-16] MEDS: ASPIRIN 81 MG TAB PO (21:43)
[2017-08-16 21:49] LABS: B-TYPE NATRIURETIC PEPTIDE 655 PG/ML (0-125); TROPONIN-I 0.053 ng/ml (0.000-0.120)
[2017-08-16] MEDS: HYDROmorphONE 1 MG/5 ML IV SYRINGE IV (22:57)
[2017-08-16] MEDS ORDERED: ONDANSETRON 4 MG INJ IV (23:30)
[2017-08-16] MEDS ORDERED: ACETAMINOPHEN 325 MG TAB PO (23:30)
[2017-08-17] MEDS ORDERED: ACETAMINOPHEN 325 MG TAB PO (01:00)
[2017-08-17] MEDS ORDERED: NITROGLYCERIN (SL) 0.4 MG TAB SL (01:00)
[2017-08-17] MEDS ORDERED: ONDANSETRON 4 MG INJ IV (01:00)
[2017-08-17 03:45] LABS: ADD MAN DIFF? NO
[2017-08-17 04:07] LABS: ANION GAP 15 (8-16); BLOOD UREA NITROGEN 18 mg/dl (7-20); CALCIUM 8.6 mg/dl (8.4-10.2); CARBON DIOXIDE 25 mmol/L (21-31); CHLORIDE 112 mmol/L (97-110); CREATININE 0.99 mg/dl (0.61-1.24); GLUCOSE 91 mg/dl (70-220); SODIUM 148 mmol/L (135-144)
[2017-08-17 04:10] LABS: CREATINE KINASE 87 IU/L (23-200)
[2017-08-17 04:14] LABS: WHITE BLOOD COUNT 7.2 10^3/ul (4.8-10.8)
[2017-08-17 04:14] LABS: BASOPHILS % 0.6 % (0.0-2.0); EOSINOPHILS # 0.1 10^3/ul (0.0-0.5); EOSINOPHILS % 1.8 % (0.0-7.0); HEMATOCRIT 26.4 % (42.0-52.0); HEMOGLOBIN 8.6 g/dl (14.0-18.0); LYMPHOCYTES # 1.2 10^3/ul (0.8-2.9); LYMPHOCYTES % 17.3 % (15.0-51.0); MEAN CORPUSCULAR HEMOGLOBIN 30.3 pg (29.0-33.0); MEAN CORPUSCULAR HGB CONC 32.6 g/dl (32.0-37.0); MONOCYTE # 0.5 10^3/ul (0.3-0.9); MONOCYTES % 6.7 % (0.0-11.0); NEUTROPHIL # 5.2 10^3/ul (1.6-7.5); NEUTROPHILS % 73.2 % (39.0-77.0); PLATELET COUNT 137 10^3/UL (140-415); RED BLOOD COUNT 2.84 10^6/ul (4.70-6.10); RED CELL DISTRIBUTION WIDTH 15.5 % (11.5-14.5)
[2017-08-17 04:21] LABS: CK INDEX 5.7
[2017-08-17 04:23] LABS: CK-MB 4.99 ng/ml (0.0-2.4); TROPONIN-I 0.559 ng/ml (0.000-0.120)
[2017-08-17 04:23] LABS: TROPONIN-I 0.566 ng/ml (0.000-0.120)
[2017-08-17] MEDS: LORAZEPAM 2 MG INJ IV (05:18)
[2017-08-17] MEDS: morphine 2 MG INJ IV (05:21)
[2017-08-17] MEDS: ALLOPURINOL 300 MG TAB PO (08:06)
[2017-08-17] MEDS: COLCHICINE 0.6 MG TAB PO (08:06)
[2017-08-17] MEDS: RIVAROXABAN 15 MG TABLET PO (08:06)
[2017-08-17] MEDS: ISOSORBIDE MONONITRATE(SR)30 MG TAB PO (08:07)
[2017-08-17] MEDS: METOPROLOL 25 MG TAB PO ×2 (08:07→20:56)
[2017-08-17 11:05] LABS: CREATINE KINASE 175 IU/L (23-200)
[2017-08-17 11:16] LABS: CK INDEX 9.1
[2017-08-17] MEDS: ASPIRIN 81 MG TAB PO (16:10)
[2017-08-17] MEDS: TICAGRELOR 90 MG TABLET PO ×2 (16:15→21:03)
[2017-08-17] MEDS: BIVALIRUDIN 250MG /NS 50 ML 50 ML IVPB (18:54)
[2017-08-17] MEDS ORDERED: DEXTROSE 50% 50 ML SYRINGE IV ×2 (20:30)
[2017-08-17] MEDS ORDERED: GLUCAGON 1 MG INJ IM (20:30)
[2017-08-17] MEDS ORDERED: GLUCOSE GEL 15 GRAM TUBE PO ×2 (20:30)
[2017-08-17] MEDS ORDERED: GLUCOSE GEL 15 GRAM TUBE BUCCAL (20:30)
[2017-08-17] MEDS: INSULIN ASPART [NOVOLOG] 3 ML PEN SC (20:57)
[2017-08-17] MEDS: MAGNESIUM HYDROXIDE 30ML CUP PO (23:36)
[2017-08-18] MEDS: morphine 2 MG INJ IV ×2 (00:25→07:09)
[2017-08-18] MEDS: ACCU-CHEK XX (02:00)
[2017-08-18] MEDS: BIVALIRUDIN 250MG /NS 50 ML 50 ML IVPB (05:26)
[2017-08-18 07:18] LABS: ADD MAN DIFF? NO
[2017-08-18 07:24] LABS: BASOPHILS % 0.5 % (0.0-2.0); EOSINOPHILS # 0.2 10^3/ul (0.0-0.5); EOSINOPHILS % 2.6 % (0.0-7.0); HEMATOCRIT 30.3 % (42.0-52.0); HEMOGLOBIN 9.9 g/dl (14.0-18.0); LYMPHOCYTES # 1.2 10^3/ul (0.8-2.9); LYMPHOCYTES % 20.4 % (15.0-51.0); MEAN CORPUSCULAR HEMOGLOBIN 30.2 pg (29.0-33.0); MEAN CORPUSCULAR HGB CONC 32.7 g/dl (32.0-37.0); MEAN CORPUSCULAR VOLUME 92.4 fl (82.0-101.0); MEAN PLATELET VOLUME 10.5 fl (7.4-10.4); MONOCYTE # 0.4 10^3/ul (0.3-0.9); MONOCYTES % 6.3 % (0.0-11.0); NEUTROPHIL # 4.2 10^3/ul (1.6-7.5); NEUTROPHILS % 69.7 % (39.0-77.0); PLATELET COUNT 128 10^3/UL (140-415); RED BLOOD COUNT 3.28 10^6/ul (4.70-6.10); RED CELL DISTRIBUTION WIDTH 15.8 % (11.5-14.5)
[2017-08-18 07:24] LABS: WHITE BLOOD COUNT 6.1 10^3/ul (4.8-10.8)
[2017-08-18 07:43] LABS: ANION GAP 18 (8-16); BLOOD UREA NITROGEN 18 mg/dl (7-20); CALCIUM 9.2 mg/dl (8.4-10.2); CARBON DIOXIDE 27 mmol/L (21-31); CHLORIDE 109 mmol/L (97-110); CREATININE 1.14 mg/dl (0.61-1.24); GLUCOSE 88 mg/dl (70-220); PHOSPHORUS 4.6 mg/dl (2.5-4.9); SODIUM 150 mmol/L (135-144)
[2017-08-18] MEDS: INSULIN ASPART [NOVOLOG] 3 ML PEN SC ×4 (07:55→20:41)
[2017-08-18] MEDS: ASPIRIN 81 MG TAB PO (07:57)
[2017-08-18] MEDS: TICAGRELOR 90 MG TABLET PO ×2 (07:59→20:41)
[2017-08-18] MEDS ORDERED: LIDOCAINE 1% (MDV) 20 ML INJ (08:13)
[2017-08-18] MEDS ORDERED: VERAPAMIL 5 MG INJ (08:14)
[2017-08-18] MEDS ORDERED: NITROGLYCERIN (IC) 100 MCG/ML INJ (08:14)
[2017-08-18] MEDS ORDERED: HEPARIN 1000 UNITS/ML 10 ML INJ (08:14)
[2017-08-18] MEDS ORDERED: FENTAnyl 50 MCG/ML VIAL (08:14)
[2017-08-18] MEDS ORDERED: HEPARIN 1000 UNITS/NS (A-LINE) 1,000 ML (08:14)
[2017-08-18] MEDS ORDERED: MIDAZOLAM 1 MG/ML 2 ML INJ (08:15)
[2017-08-18] MEDS ORDERED: TICAGRELOR 90 MG TABLET (08:55)
[2017-08-18] MEDS ORDERED: ASPIRIN 81 MG TAB (08:56)
[2017-08-18] MEDS: METOPROLOL 25 MG TAB PO ×2 (09:00→20:40)
[2017-08-18] MEDS: ISOSORBIDE MONONITRATE(SR)30 MG TAB PO (09:00)
[2017-08-18] MEDS: COLCHICINE 0.6 MG TAB PO (09:00)
[2017-08-18] MEDS: ALLOPURINOL 300 MG TAB PO (09:00)
[2017-08-18] MEDS ORDERED: EPTIFIBATIDE 20 ML (09:56)
[2017-08-18] MEDS ORDERED: EPTIFIBATIDE 100 ML IV (09:56)
[2017-08-18] MEDS ORDERED: BIVALIRUDIN 250MG /NS 50 ML 50 ML IVPB (10:06)
[2017-08-18] MEDS ORDERED: morphine 2 MG INJ IV (19:30)
[2017-08-19] MEDS: ACCU-CHEK XX (02:53)
[2017-08-19 05:32] LABS: ADD MAN DIFF? NO
[2017-08-19 05:38] LABS: WHITE BLOOD COUNT 5.1 10^3/ul (4.8-10.8)
[2017-08-19 05:38] LABS: ABNORMAL IP MESSAGE 1; BASOPHILS % 0.6 % (0.0-2.0); EOSINOPHILS # 0.2 10^3/ul (0.0-0.5); EOSINOPHILS % 3.1 % (0.0-7.0); HEMATOCRIT 28.3 % (42.0-52.0); HEMOGLOBIN 9.4 g/dl (14.0-18.0); LYMPHOCYTES % 19.8 % (15.0-51.0); MEAN CORPUSCULAR HEMOGLOBIN 30.7 pg (29.0-33.0); MEAN CORPUSCULAR HGB CONC 33.2 g/dl (32.0-37.0); MEAN CORPUSCULAR VOLUME 92.5 fl (82.0-101.0); MONOCYTE # 0.4 10^3/ul (0.3-0.9); NEUTROPHIL # 3.5 10^3/ul (1.6-7.5); NEUTROPHILS % 69.3 % (39.0-77.0); POSITIVE DIFF @See below; RED BLOOD COUNT 3.06 10^6/ul (4.70-6.10); RED CELL DISTRIBUTION WIDTH 15.9 % (11.5-14.5)
[2017-08-19 05:57] LABS: ANION GAP 13 (8-16); BLOOD UREA NITROGEN 17 mg/dl (7-20); CARBON DIOXIDE 25 mmol/L (21-31); CHLORIDE 114 mmol/L (97-110); CREATININE 1.02 mg/dl (0.61-1.24); GLUCOSE 94 mg/dl (70-220); PHOSPHORUS 4.5 mg/dl (2.5-4.9); POTASSIUM 3.9 mmol/L (3.5-5.1); SODIUM 148 mmol/L (135-144)
[2017-08-19 06:12] LABS: PLATELET COUNT 3 10^3/UL (140-415)
[2017-08-19 06:46] LABS: ADD MAN DIFF? NO
[2017-08-19 06:59] LABS: WHITE BLOOD COUNT 5.5 10^3/ul (4.8-10.8)
[2017-08-19 06:59] LABS: ABNORMAL IP MESSAGE 1; BASOPHILS % 0.7 % (0.0-2.0); EOSINOPHILS # 0.1 10^3/ul (0.0-0.5); EOSINOPHILS % 2.5 % (0.0-7.0); HEMATOCRIT 28.5 % (42.0-52.0); HEMOGLOBIN 9.5 g/dl (14.0-18.0); LYMPHOCYTES % 17.8 % (15.0-51.0); MEAN CORPUSCULAR HEMOGLOBIN 30.6 pg (29.0-33.0); MEAN CORPUSCULAR HGB CONC 33.3 g/dl (32.0-37.0); MEAN CORPUSCULAR VOLUME 91.9 fl (82.0-101.0); MONOCYTE # 0.4 10^3/ul (0.3-0.9); MONOCYTES % 6.9 % (0.0-11.0); NEUTROPHIL # 3.9 10^3/ul (1.6-7.5); NEUTROPHILS % 71.7 % (39.0-77.0); POSITIVE DIFF @See below; RED CELL DISTRIBUTION WIDTH 15.9 % (11.5-14.5)
[2017-08-19 07:11] LABS: PLATELET COUNT 9 10^3/UL (140-415)
[2017-08-19] MEDS: INSULIN ASPART [NOVOLOG] 3 ML PEN SC ×4 (07:35→20:59)
[2017-08-19] MEDS: SOD CHLORIDE 0.9% 250 ML IV* ×2 (07:49→13:22)
[2017-08-19] MEDS: COLCHICINE 0.6 MG TAB PO (09:00)
[2017-08-19] MEDS: TICAGRELOR 90 MG TABLET PO ×2 (09:00→20:59)
[2017-08-19] MEDS ORDERED: ASPIRIN 325 MG TAB PO (09:00)
[2017-08-19 09:11] LABS: INR 1.08; PROTIME 14.1 Sec (11.9-14.9); PT RATIO 1.1
[2017-08-19 09:12] LABS: PARTIAL THROMBOPLASTIN TIME 31.2 Sec (25.0-35.0)
[2017-08-19] MEDS: ALLOPURINOL 300 MG TAB PO (09:12)
[2017-08-19] MEDS: ASPIRIN 81 MG TAB PO (09:12)
[2017-08-19] MEDS: ISOSORBIDE MONONITRATE(SR)30 MG TAB PO (09:13)
[2017-08-19] MEDS: METOPROLOL 25 MG TAB PO ×2 (09:13→20:54)
[2017-08-19 09:24] LABS: MICROCYTOSIS 1+ (0-0); POLYCHROMASIA 3+ (0-0)
[2017-08-19 09:25] LABS: ANISOCYTOSIS 1+ (0-0); BAND NEUTROPHILS #M 0.1 10^3/ul (0.0-0.6); BAND NEUTROPHILS % (M) 2 % (0-4); EOSINOPHILS % (M) 2 % (0-7); GIANT THROMBO% (M) 3 % (0-0); LYMPHOCYTES #M 0.5 10^3/ul (0.8-2.9); LYMPHOCYTES % (M) 10 % (15-51); MICROCYTOSIS 1+ (0-0); MONOCYTE #M 0.2 10^3/ul (0.3-0.9); MONOCYTES % (M) 5 % (0-11); PLATELET ESTIMATE SIG DECREASED; POLYCHROMASIA 3+ (0-0); RBC MORPHOLOGY COMMENT @See below; SEG NEUT #M 4.5 10^3/ul (1.6-7.5); SEGMENTED NEUTROPHILS (M) % 81 % (39-77); SMUDGE%M 6 % (0-0); WBC MORPHOLOGY COMMENT @See below
[2017-08-19] MEDS ORDERED: ARGATROBAN IV (11:30)
[2017-08-19] MEDS ORDERED: SOD CHLORIDE 0.9% IV (11:30)
[2017-08-19] MEDS: ARGATROBAN IV (12:36)
[2017-08-19] MEDS: SOD CHLORIDE 0.9% IV (12:36)
[2017-08-19 12:37] LABS: WHITE BLOOD COUNT 8.5 10^3/ul (4.8-10.8)
[2017-08-19 12:37] LABS: ABNORMAL IP MESSAGE 1; HEMATOCRIT 30.9 % (42.0-52.0); HEMOGLOBIN 10.2 g/dl (14.0-18.0); MEAN CORPUSCULAR HEMOGLOBIN 30.4 pg (29.0-33.0); POSITIVE DIFF @See below; RED BLOOD COUNT 3.36 10^6/ul (4.70-6.10); RED CELL DISTRIBUTION WIDTH 15.7 % (11.5-14.5)
[2017-08-19 12:41] LABS: ADD MAN DIFF? YES; PLATELET COUNT 27 10^3/UL (140-415)
[2017-08-19 12:54] LABS: ALANINE AMINOTRANSFERASE 19 IU/L (13-69); ALKALINE PHOSPHATASE 59 IU/L (42-121); ASPARTATE AMINO TRANSFERASE 31 IU/L (15-46); BILIRUBIN,INDIRECT 0.8 mg/dl (0-1.1); BILIRUBIN,TOTAL 0.8 mg/dl (0.2-1.3); TOTAL PROTEIN 7.9 g/dl (6.1-8.1)
[2017-08-19 12:59] LABS: ANISOCYTOSIS 1+ (0-0); BAND NEUTROPHILS #M 0.1 10^3/ul (0.0-0.6); BAND NEUTROPHILS % (M) 3 % (0-4); EOSINOPHILS % (M) 2 % (0-7); GIANT THROMBO% (M) 1 % (0-0); INR 1.07; LYMPHOCYTES #M 0.8 10^3/ul (0.8-2.9); LYMPHOCYTES % (M) 16 % (15-51); MONOCYTE #M 0.2 10^3/ul (0.3-0.9); MONOCYTES % (M) 5 % (0-11); MYELOCYTES % (M) 1 % (0-0); PLATELET ESTIMATE SIG DECREASED; POIKILOCYTOSIS 2+ (0-0); PT RATIO 1.1; REACTIVE LYMPHOCYTES% (M) 1 % (0-0); SEG NEUT #M 3.7 10^3/ul (1.6-7.5); SEGMENTED NEUTROPHILS (M) % 72 % (39-77); SMUDGE%M 1 % (0-0)
[2017-08-19 13:00] LABS: PARTIAL THROMBOPLASTIN TIME 29.9 Sec (25.0-35.0)
[2017-08-19 13:40] LABS: ANISOCYTOSIS 1+ (0-0); BAND NEUTROPHILS #M 0.3 10^3/ul (0.0-0.6); BAND NEUTROPHILS % (M) 4 % (0-4); EOSINOPHILS % (M) 1 % (0-7); LYMPHOCYTES #M 1.1 10^3/ul (0.8-2.9); LYMPHOCYTES % (M) 13 % (15-51); MICROCYTOSIS 1+ (0-0); MONOCYTE #M 0.2 10^3/ul (0.3-0.9); MONOCYTES % (M) 3 % (0-11); PLATELET ESTIMATE SIG DECREASED; POLYCHROMASIA 3+ (0-0); SEG NEUT #M 6.7 10^3/ul (1.6-7.5); SEGMENTED NEUTROPHILS (M) % 79 % (39-77); SMUDGE%M 1 % (0-0)
[2017-08-19 17:41] LABS: PARTIAL THROMBOPLASTIN TIME 52.6 Sec (25.0-35.0)
[2017-08-19 17:43] LABS: ADD MAN DIFF? NO
[2017-08-19 17:44] LABS: ABNORMAL IP MESSAGE 1; BASOPHILS % 0.5 % (0.0-2.0); EOSINOPHILS # 0.2 10^3/ul (0.0-0.5); EOSINOPHILS % 2.3 % (0.0-7.0); HEMATOCRIT 26.7 % (42.0-52.0); HEMOGLOBIN 8.8 g/dl (14.0-18.0); LYMPHOCYTES # 1.1 10^3/ul (0.8-2.9); LYMPHOCYTES % 13.5 % (15.0-51.0); MEAN CORPUSCULAR HEMOGLOBIN 30.3 pg (29.0-33.0); MEAN CORPUSCULAR VOLUME 92.1 fl (82.0-101.0); MEAN PLATELET VOLUME 11.9 fl (7.4-10.4); MONOCYTE # 0.4 10^3/ul (0.3-0.9); MONOCYTES % 5.5 % (0.0-11.0); NEUTROPHIL # 6.2 10^3/ul (1.6-7.5); NEUTROPHILS % 77.7 % (39.0-77.0); PLATELET COUNT 40 10^3/UL (140-415); POSITIVE DIFF @See below; RED CELL DISTRIBUTION WIDTH 15.5 % (11.5-14.5)
[2017-08-19 21:25] LABS: PARTIAL THROMBOPLASTIN TIME 52.6 Sec (25.0-35.0)
[2017-08-20] MEDS: MAGNESIUM HYDROXIDE 30ML CUP PO (01:12)
[2017-08-20 01:21] LABS: ADD MAN DIFF? NO
[2017-08-20 01:23] LABS: WHITE BLOOD COUNT 6.6 10^3/ul (4.8-10.8)
[2017-08-20 01:23] LABS: ABNORMAL IP MESSAGE 1; BASOPHILS % 0.6 % (0.0-2.0); EOSINOPHILS # 0.2 10^3/ul (0.0-0.5); EOSINOPHILS % 3.5 % (0.0-7.0); HEMATOCRIT 28.1 % (42.0-52.0); HEMOGLOBIN 9.5 g/dl (14.0-18.0); LYMPHOCYTES # 1.4 10^3/ul (0.8-2.9); LYMPHOCYTES % 21.5 % (15.0-51.0); MEAN CORPUSCULAR HGB CONC 33.8 g/dl (32.0-37.0); MEAN CORPUSCULAR VOLUME 91.8 fl (82.0-101.0); MEAN PLATELET VOLUME 10.9 fl (7.4-10.4); MONOCYTE # 0.4 10^3/ul (0.3-0.9); MONOCYTES % 6.2 % (0.0-11.0); NEUTROPHIL # 4.5 10^3/ul (1.6-7.5); NEUTROPHILS % 67.7 % (39.0-77.0); PLATELET COUNT 37 10^3/UL (140-415); POSITIVE DIFF @See below; RED BLOOD COUNT 3.06 10^6/ul (4.70-6.10); RED CELL DISTRIBUTION WIDTH 15.6 % (11.5-14.5)
[2017-08-20] MEDS: ACCU-CHEK XX (01:30)
[2017-08-20 05:19] LABS: TYPE AND SCREEN 1 1
[2017-08-20 05:21] LABS: ADD MAN DIFF? NO
[2017-08-20 05:27] LABS: ABNORMAL IP MESSAGE 1; BASOPHILS % 0.7 % (0.0-2.0); EOSINOPHILS # 0.2 10^3/ul (0.0-0.5); HEMATOCRIT 29.4 % (42.0-52.0); HEMOGLOBIN 9.8 g/dl (14.0-18.0); LYMPHOCYTES # 1.2 10^3/ul (0.8-2.9); LYMPHOCYTES % 18.9 % (15.0-51.0); MEAN CORPUSCULAR HGB CONC 33.3 g/dl (32.0-37.0); MEAN CORPUSCULAR VOLUME 89.9 fl (82.0-101.0); MEAN PLATELET VOLUME 12.1 fl (7.4-10.4); MONOCYTE # 0.4 10^3/ul (0.3-0.9); MONOCYTES % 7.1 % (0.0-11.0); NEUTROPHIL # 4.3 10^3/ul (1.6-7.5); PLATELET COUNT 43 10^3/UL (140-415); POSITIVE DIFF @See below; RED BLOOD COUNT 3.27 10^6/ul (4.70-6.10); RED CELL DISTRIBUTION WIDTH 15.5 % (11.5-14.5)
[2017-08-20 05:27] LABS: WHITE BLOOD COUNT 6.1 10^3/ul (4.8-10.8)
[2017-08-20 06:55] LABS: ANION GAP 13 (8-16); BLOOD UREA NITROGEN 21 mg/dl (7-20); CALCIUM 9.3 mg/dl (8.4-10.2); CARBON DIOXIDE 27 mmol/L (21-31); CHLORIDE 110 mmol/L (97-110); CREATININE 1.06 mg/dl (0.61-1.24); GLUCOSE 96 mg/dl (70-220); MAGNESIUM 2.1 mg/dl (1.7-2.5); PHOSPHORUS 5.3 mg/dl (2.5-4.9); POTASSIUM 4.1 mmol/L (3.5-5.1); SODIUM 146 mmol/L (135-144)
[2017-08-20] MEDS: INSULIN ASPART [NOVOLOG] 3 ML PEN SC ×4 (07:35→20:19)
[2017-08-20 08:43] LABS: PARTIAL THROMBOPLASTIN TIME 52.4 Sec (25.0-35.0)
[2017-08-20] MEDS: ISOSORBIDE MONONITRATE(SR)30 MG TAB PO (10:10)
[2017-08-20] MEDS: ALLOPURINOL 300 MG TAB PO (10:10)
[2017-08-20] MEDS: COLCHICINE 0.6 MG TAB PO (10:10)
[2017-08-20] MEDS: METOPROLOL 25 MG TAB PO ×2 (10:11→20:22)
[2017-08-20] MEDS: TICAGRELOR 90 MG TABLET PO ×2 (10:26→20:23)
[2017-08-20 12:29] LABS: ADD MAN DIFF? NO
[2017-08-20 12:30] LABS: WHITE BLOOD COUNT 7.5 10^3/ul (4.8-10.8)
[2017-08-20 12:30] LABS: ABNORMAL IP MESSAGE 1; BASOPHILS % 0.5 % (0.0-2.0); EOSINOPHILS # 0.2 10^3/ul (0.0-0.5); EOSINOPHILS % 2.3 % (0.0-7.0); HEMOGLOBIN 10.4 g/dl (14.0-18.0); LYMPHOCYTES # 1.1 10^3/ul (0.8-2.9); LYMPHOCYTES % 14.7 % (15.0-51.0); MEAN CORPUSCULAR HGB CONC 33.5 g/dl (32.0-37.0); MEAN CORPUSCULAR VOLUME 92.3 fl (82.0-101.0); MEAN PLATELET VOLUME 10.9 fl (7.4-10.4); MONOCYTE # 0.5 10^3/ul (0.3-0.9); MONOCYTES % 6.8 % (0.0-11.0); NEUTROPHIL # 5.6 10^3/ul (1.6-7.5); NEUTROPHILS % 75.3 % (39.0-77.0); PLATELET COUNT 72 10^3/UL (140-415); POSITIVE DIFF @See below; RED BLOOD COUNT 3.36 10^6/ul (4.70-6.10); RED CELL DISTRIBUTION WIDTH 15.7 % (11.5-14.5)
[2017-08-20] MEDS: ARGATROBAN IV (13:20)
[2017-08-20] MEDS: SOD CHLORIDE 0.9% IV (13:20)
[2017-08-20 18:22] LABS: ADD MAN DIFF? NO
[2017-08-20 18:26] LABS: ABNORMAL IP MESSAGE 1; BASOPHILS % 0.6 % (0.0-2.0); EOSINOPHILS # 0.2 10^3/ul (0.0-0.5); EOSINOPHILS % 2.8 % (0.0-7.0); HEMATOCRIT 29.6 % (42.0-52.0); HEMOGLOBIN 9.7 g/dl (14.0-18.0); LYMPHOCYTES % 15.7 % (15.0-51.0); MEAN CORPUSCULAR HEMOGLOBIN 29.8 pg (29.0-33.0); MEAN CORPUSCULAR HGB CONC 32.8 g/dl (32.0-37.0); MEAN CORPUSCULAR VOLUME 90.8 fl (82.0-101.0); MEAN PLATELET VOLUME 11.6 fl (7.4-10.4); MONOCYTE # 0.3 10^3/ul (0.3-0.9); MONOCYTES % 4.5 % (0.0-11.0); NEUTROPHIL # 4.9 10^3/ul (1.6-7.5); NEUTROPHILS % 76.1 % (39.0-77.0); PLATELET COUNT 76 10^3/UL (140-415); POSITIVE DIFF @See below; RED BLOOD COUNT 3.26 10^6/ul (4.70-6.10); RED CELL DISTRIBUTION WIDTH 15.7 % (11.5-14.5)
[2017-08-20 18:26] LABS: WHITE BLOOD COUNT 6.4 10^3/ul (4.8-10.8)
[2017-08-21 00:48] LABS: ADD MAN DIFF? NO
[2017-08-21 00:52] LABS: WHITE BLOOD COUNT 6.4 10^3/ul (4.8-10.8)
[2017-08-21 00:52] LABS: ABNORMAL IP MESSAGE 1; BASOPHILS % 0.5 % (0.0-2.0); EOSINOPHILS # 0.2 10^3/ul (0.0-0.5); EOSINOPHILS % 2.8 % (0.0-7.0); HEMATOCRIT 29.1 % (42.0-52.0); HEMOGLOBIN 9.9 g/dl (14.0-18.0); LYMPHOCYTES # 1.4 10^3/ul (0.8-2.9); LYMPHOCYTES % 21.3 % (15.0-51.0); MEAN CORPUSCULAR HEMOGLOBIN 30.9 pg (29.0-33.0); MEAN CORPUSCULAR VOLUME 90.9 fl (82.0-101.0); MEAN PLATELET VOLUME 11.5 fl (7.4-10.4); MONOCYTE # 0.4 10^3/ul (0.3-0.9); MONOCYTES % 6.6 % (0.0-11.0); NEUTROPHIL # 4.4 10^3/ul (1.6-7.5); NEUTROPHILS % 68.5 % (39.0-77.0); PLATELET COUNT 65 10^3/UL (140-415); POSITIVE DIFF @See below; RED CELL DISTRIBUTION WIDTH 15.7 % (11.5-14.5)
[2017-08-21] MEDS: ACCU-CHEK XX (02:00)
[2017-08-21 05:39] LABS: ADD MAN DIFF? NO
[2017-08-21 05:48] LABS: WHITE BLOOD COUNT 5.6 10^3/ul (4.8-10.8)
[2017-08-21 05:48] LABS: ABNORMAL IP MESSAGE 1; BASOPHILS % 0.7 % (0.0-2.0); EOSINOPHILS # 0.2 10^3/ul (0.0-0.5); EOSINOPHILS % 2.8 % (0.0-7.0); HEMATOCRIT 30.1 % (42.0-52.0); HEMOGLOBIN 9.9 g/dl (14.0-18.0); LYMPHOCYTES # 1.1 10^3/ul (0.8-2.9); LYMPHOCYTES % 18.7 % (15.0-51.0); MEAN CORPUSCULAR HEMOGLOBIN 30.1 pg (29.0-33.0); MEAN CORPUSCULAR HGB CONC 32.9 g/dl (32.0-37.0); MEAN CORPUSCULAR VOLUME 91.5 fl (82.0-101.0); MEAN PLATELET VOLUME 11.9 fl (7.4-10.4); MONOCYTE # 0.4 10^3/ul (0.3-0.9); MONOCYTES % 6.2 % (0.0-11.0); NEUTROPHILS % 71.2 % (39.0-77.0); PLATELET COUNT 66 10^3/UL (140-415); POSITIVE DIFF @See below; RED BLOOD COUNT 3.29 10^6/ul (4.70-6.10); RED CELL DISTRIBUTION WIDTH 15.8 % (11.5-14.5)
[2017-08-21 06:01] LABS: PARTIAL THROMBOPLASTIN TIME 48.3 Sec (25.0-35.0)
[2017-08-21 06:26] LABS: ANION GAP 15 (8-16); BLOOD UREA NITROGEN 18 mg/dl (7-20); CALCIUM 9.6 mg/dl (8.4-10.2); CARBON DIOXIDE 24 mmol/L (21-31); CHLORIDE 112 mmol/L (97-110); CREATININE 1.01 mg/dl (0.61-1.24); GLUCOSE 136 mg/dl (70-220); PHOSPHORUS 5.1 mg/dl (2.5-4.9); POTASSIUM 3.9 mmol/L (3.5-5.1); SODIUM 147 mmol/L (135-144)
[2017-08-21] MEDS: INSULIN ASPART [NOVOLOG] 3 ML PEN SC ×4 (07:35→20:44)
[2017-08-21] MEDS: ALLOPURINOL 300 MG TAB PO (09:04)
[2017-08-21] MEDS: COLCHICINE 0.6 MG TAB PO (09:04)
[2017-08-21] MEDS: LISINOPRIL 10 MG TAB PO (09:07)
[2017-08-21] MEDS: METOPROLOL 25 MG TAB PO ×2 (09:07→20:45)
[2017-08-21] MEDS: ISOSORBIDE MONONITRATE(SR)30 MG TAB PO (09:07)
[2017-08-21] MEDS: TICAGRELOR 90 MG TABLET PO ×2 (09:21→20:39)
[2017-08-21 13:15] LABS: ADD MAN DIFF? NO
[2017-08-21 13:16] LABS: HEMATOCRIT 30.1 % (42.0-52.0); HEMOGLOBIN 10.1 g/dl (14.0-18.0); MEAN CORPUSCULAR HEMOGLOBIN 30.5 pg (29.0-33.0); MEAN CORPUSCULAR HGB CONC 33.6 g/dl (32.0-37.0); MEAN CORPUSCULAR VOLUME 90.9 fl (82.0-101.0); MEAN PLATELET VOLUME 11.9 fl (7.4-10.4); NEUTROPHILS % 73.3 % (39.0-77.0); RED BLOOD COUNT 3.31 10^6/ul (4.70-6.10); RED CELL DISTRIBUTION WIDTH 15.7 % (11.5-14.5)
[2017-08-21 13:16] LABS: WHITE BLOOD COUNT 7.2 10^3/ul (4.8-10.8)
[2017-08-21 13:17] LABS: ABNORMAL IP MESSAGE 1; BASOPHILS % 0.6 % (0.0-2.0); EOSINOPHILS # 0.1 10^3/ul (0.0-0.5); EOSINOPHILS % 1.8 % (0.0-7.0); LYMPHOCYTES # 1.2 10^3/ul (0.8-2.9); LYMPHOCYTES % 16.7 % (15.0-51.0); MONOCYTE # 0.5 10^3/ul (0.3-0.9); MONOCYTES % 7.3 % (0.0-11.0); NEUTROPHIL # 5.3 10^3/ul (1.6-7.5); POSITIVE DIFF @See below
[2017-08-21 13:24] LABS: PLATELET COUNT 68 10^3/UL (140-415)
[2017-08-21] MEDS: ARGATROBAN IV (13:45)
[2017-08-21] MEDS: SOD CHLORIDE 0.9% IV (13:45)
[2017-08-21 19:12] LABS: ADD MAN DIFF? NO
[2017-08-21 19:13] LABS: WHITE BLOOD COUNT 7.9 10^3/ul (4.8-10.8)
[2017-08-21 19:13] LABS: ABNORMAL IP MESSAGE 1; BASOPHILS % 0.5 % (0.0-2.0); EOSINOPHILS # 0.1 10^3/ul (0.0-0.5); EOSINOPHILS % 1.5 % (0.0-7.0); HEMATOCRIT 33.1 % (42.0-52.0); HEMOGLOBIN 11.1 g/dl (14.0-18.0); LYMPHOCYTES # 1.4 10^3/ul (0.8-2.9); LYMPHOCYTES % 17.7 % (15.0-51.0); MEAN CORPUSCULAR HEMOGLOBIN 30.7 pg (29.0-33.0); MEAN CORPUSCULAR HGB CONC 33.5 g/dl (32.0-37.0); MEAN CORPUSCULAR VOLUME 91.4 fl (82.0-101.0); MEAN PLATELET VOLUME 12.1 fl (7.4-10.4); MONOCYTE # 0.4 10^3/ul (0.3-0.9); MONOCYTES % 4.8 % (0.0-11.0); NEUTROPHILS % 75.2 % (39.0-77.0); PLATELET COUNT 75 10^3/UL (140-415); POSITIVE DIFF @See below; RED BLOOD COUNT 3.62 10^6/ul (4.70-6.10); RED CELL DISTRIBUTION WIDTH 15.7 % (11.5-14.5)
[2017-08-21 23:21] LABS: HEPARIN INDUCED PLATELET AB POSITIVE (NEGATIVE)
[2017-08-22 00:40] LABS: ADD MAN DIFF? NO
[2017-08-22 00:42] LABS: ABNORMAL IP MESSAGE 1; BASOPHILS % 0.6 % (0.0-2.0); EOSINOPHILS # 0.1 10^3/ul (0.0-0.5); EOSINOPHILS % 2.1 % (0.0-7.0); HEMATOCRIT 29.8 % (42.0-52.0); HEMOGLOBIN 9.9 g/dl (14.0-18.0); LYMPHOCYTES # 1.6 10^3/ul (0.8-2.9); LYMPHOCYTES % 23.3 % (15.0-51.0); MEAN CORPUSCULAR HGB CONC 33.2 g/dl (32.0-37.0); MEAN CORPUSCULAR VOLUME 90.3 fl (82.0-101.0); MEAN PLATELET VOLUME 11.4 fl (7.4-10.4); MONOCYTE # 0.4 10^3/ul (0.3-0.9); MONOCYTES % 6.1 % (0.0-11.0); NEUTROPHIL # 4.5 10^3/ul (1.6-7.5); NEUTROPHILS % 67.5 % (39.0-77.0); PLATELET COUNT 64 10^3/UL (140-415); POSITIVE DIFF @See below; RED CELL DISTRIBUTION WIDTH 15.8 % (11.5-14.5)
[2017-08-22 00:42] LABS: WHITE BLOOD COUNT 6.7 10^3/ul (4.8-10.8)
[2017-08-22] MEDS: ACCU-CHEK XX ×2 (02:04→20:58)
[2017-08-22 05:18] LABS: ADD MAN DIFF? NO
[2017-08-22 05:22] LABS: ABNORMAL IP MESSAGE 1; BASOPHILS % 0.5 % (0.0-2.0); EOSINOPHILS # 0.2 10^3/ul (0.0-0.5); EOSINOPHILS % 2.5 % (0.0-7.0); HEMATOCRIT 29.8 % (42.0-52.0); HEMOGLOBIN 9.9 g/dl (14.0-18.0); LYMPHOCYTES # 1.3 10^3/ul (0.8-2.9); LYMPHOCYTES % 21.7 % (15.0-51.0); MEAN CORPUSCULAR HEMOGLOBIN 30.1 pg (29.0-33.0); MEAN CORPUSCULAR HGB CONC 33.2 g/dl (32.0-37.0); MEAN CORPUSCULAR VOLUME 90.6 fl (82.0-101.0); MEAN PLATELET VOLUME 12.4 fl (7.4-10.4); MONOCYTE # 0.4 10^3/ul (0.3-0.9); MONOCYTES % 7.1 % (0.0-11.0); NEUTROPHIL # 4.1 10^3/ul (1.6-7.5); PLATELET COUNT 72 10^3/UL (140-415); POSITIVE DIFF @See below; RED BLOOD COUNT 3.29 10^6/ul (4.70-6.10); RED CELL DISTRIBUTION WIDTH 15.7 % (11.5-14.5)
[2017-08-22 05:22] LABS: WHITE BLOOD COUNT 6.1 10^3/ul (4.8-10.8)
[2017-08-22 05:41] LABS: ALANINE AMINOTRANSFERASE 23 IU/L (13-69); ALKALINE PHOSPHATASE 51 IU/L (42-121); ASPARTATE AMINO TRANSFERASE 17 IU/L (15-46); BILIRUBIN,INDIRECT 0.8 mg/dl (0-1.1); BILIRUBIN,TOTAL 0.8 mg/dl (0.2-1.3); TOTAL PROTEIN 7.9 g/dl (6.1-8.1)
[2017-08-22 05:49] LABS: PARTIAL THROMBOPLASTIN TIME 50.1 Sec (25.0-35.0)
[2017-08-22 07:26] LABS: ANION GAP 19 (8-16); BLOOD UREA NITROGEN 20 mg/dl (7-20); CALCIUM 9.4 mg/dl (8.4-10.2); CARBON DIOXIDE 22 mmol/L (21-31); CHLORIDE 109 mmol/L (97-110); CREATININE 1.05 mg/dl (0.61-1.24); GLUCOSE 94 mg/dl (70-220); MAGNESIUM 1.8 mg/dl (1.7-2.5); PHOSPHORUS 4.7 mg/dl (2.5-4.9); POTASSIUM 3.9 mmol/L (3.5-5.1); SODIUM 146 mmol/L (135-144)
[2017-08-22] MEDS: INSULIN ASPART [NOVOLOG] 3 ML PEN SC ×4 (07:35→20:57)
[2017-08-22] MEDS: ALLOPURINOL 300 MG TAB PO (08:46)
[2017-08-22] MEDS: COLCHICINE 0.6 MG TAB PO (08:46)
[2017-08-22] MEDS: METOPROLOL 25 MG TAB PO ×2 (08:47→21:13)
[2017-08-22] MEDS: TICAGRELOR 90 MG TABLET PO ×2 (08:54→21:24)
[2017-08-22] MEDS: LISINOPRIL 10 MG TAB PO (09:00)
[2017-08-22] MEDS: ISOSORBIDE MONONITRATE(SR)30 MG TAB PO (10:50)
[2017-08-22] MEDS: ASPIRIN 81 MG TAB PO (10:52)
[2017-08-22 12:22] LABS: ADD MAN DIFF? NO
[2017-08-22 12:30] LABS: ABNORMAL IP MESSAGE 1; BASOPHILS % 0.5 % (0.0-2.0); EOSINOPHILS # 0.1 10^3/ul (0.0-0.5); EOSINOPHILS % 1.4 % (0.0-7.0); HEMATOCRIT 31.7 % (42.0-52.0); HEMOGLOBIN 10.4 g/dl (14.0-18.0); LYMPHOCYTES # 1.1 10^3/ul (0.8-2.9); LYMPHOCYTES % 17.5 % (15.0-51.0); MEAN CORPUSCULAR HEMOGLOBIN 30.3 pg (29.0-33.0); MEAN CORPUSCULAR HGB CONC 32.8 g/dl (32.0-37.0); MEAN CORPUSCULAR VOLUME 92.4 fl (82.0-101.0); MEAN PLATELET VOLUME 12.2 fl (7.4-10.4); MONOCYTE # 0.4 10^3/ul (0.3-0.9); MONOCYTES % 6.5 % (0.0-11.0); NEUTROPHIL # 4.8 10^3/ul (1.6-7.5); NEUTROPHILS % 73.6 % (39.0-77.0); PLATELET COUNT 77 10^3/UL (140-415); POSITIVE DIFF @See below; RED BLOOD COUNT 3.43 10^6/ul (4.70-6.10); RED CELL DISTRIBUTION WIDTH 15.7 % (11.5-14.5)
[2017-08-22 12:30] LABS: WHITE BLOOD COUNT 6.5 10^3/ul (4.8-10.8)
[2017-08-22] MEDS: ARGATROBAN IV (12:30)
[2017-08-22] MEDS: SOD CHLORIDE 0.9% IV (12:30)
[2017-08-22 18:55] LABS: ADD MAN DIFF? NO
[2017-08-22 18:57] LABS: WHITE BLOOD COUNT 6.4 10^3/ul (4.8-10.8)
[2017-08-22 18:57] LABS: ABNORMAL IP MESSAGE 1; BASOPHILS % 0.6 % (0.0-2.0); EOSINOPHILS # 0.1 10^3/ul (0.0-0.5); EOSINOPHILS % 1.7 % (0.0-7.0); HEMATOCRIT 31.3 % (42.0-52.0); HEMOGLOBIN 10.5 g/dl (14.0-18.0); LYMPHOCYTES # 1.3 10^3/ul (0.8-2.9); LYMPHOCYTES % 20.7 % (15.0-51.0); MEAN CORPUSCULAR HEMOGLOBIN 30.3 pg (29.0-33.0); MEAN CORPUSCULAR HGB CONC 33.5 g/dl (32.0-37.0); MEAN CORPUSCULAR VOLUME 90.2 fl (82.0-101.0); MEAN PLATELET VOLUME 12.4 fl (7.4-10.4); MONOCYTE # 0.4 10^3/ul (0.3-0.9); MONOCYTES % 6.8 % (0.0-11.0); NEUTROPHIL # 4.5 10^3/ul (1.6-7.5); PLATELET COUNT 85 10^3/UL (140-415); POSITIVE DIFF @See below; RED BLOOD COUNT 3.47 10^6/ul (4.70-6.10); RED CELL DISTRIBUTION WIDTH 15.8 % (11.5-14.5)
[2017-08-23 07:15] LABS: ADD MAN DIFF? NO
[2017-08-23 07:17] LABS: ABNORMAL IP MESSAGE 1; BASOPHILS % 0.7 % (0.0-2.0); EOSINOPHILS # 0.1 10^3/ul (0.0-0.5); EOSINOPHILS % 2.2 % (0.0-7.0); HEMATOCRIT 32.9 % (42.0-52.0); HEMOGLOBIN 10.9 g/dl (14.0-18.0); LYMPHOCYTES # 1.2 10^3/ul (0.8-2.9); LYMPHOCYTES % 22.2 % (15.0-51.0); MEAN CORPUSCULAR HEMOGLOBIN 30.6 pg (29.0-33.0); MEAN CORPUSCULAR HGB CONC 33.1 g/dl (32.0-37.0); MEAN CORPUSCULAR VOLUME 92.4 fl (82.0-101.0); MEAN PLATELET VOLUME 12.3 fl (7.4-10.4); MONOCYTE # 0.4 10^3/ul (0.3-0.9); MONOCYTES % 6.5 % (0.0-11.0); NEUTROPHIL # 3.6 10^3/ul (1.6-7.5); PLATELET COUNT 92 10^3/UL (140-415); POSITIVE DIFF @See below; RED BLOOD COUNT 3.56 10^6/ul (4.70-6.10); RED CELL DISTRIBUTION WIDTH 15.7 % (11.5-14.5)
[2017-08-23 07:17] LABS: WHITE BLOOD COUNT 5.4 10^3/ul (4.8-10.8)
[2017-08-23 07:50] LABS: PARTIAL THROMBOPLASTIN TIME 43.7 Sec (25.0-35.0)
[2017-08-23] MEDS: INSULIN ASPART [NOVOLOG] 3 ML PEN SC ×4 (07:55→21:31)
[2017-08-23] MEDS: ISOSORBIDE MONONITRATE(SR)30 MG TAB PO (09:12)
[2017-08-23] MEDS: ALLOPURINOL 300 MG TAB PO (09:13)
[2017-08-23] MEDS: LISINOPRIL 10 MG TAB PO (09:13)
[2017-08-23] MEDS: ASPIRIN 81 MG TAB PO (09:13)
[2017-08-23] MEDS: COLCHICINE 0.6 MG TAB PO (09:13)
[2017-08-23] MEDS: METOPROLOL 25 MG TAB PO ×2 (09:14→20:46)
[2017-08-23] MEDS: TICAGRELOR 90 MG TABLET PO ×2 (09:15→21:04)
[2017-08-23] MEDS: ARGATROBAN IV ×2 (12:20→16:19)
[2017-08-23] MEDS: SOD CHLORIDE 0.9% IV ×2 (12:20→16:19)
[2017-08-23 16:30] LABS: PARTIAL THROMBOPLASTIN TIME 47.8 Sec (25.0-35.0)
[2017-08-23] MEDS ORDERED: morphine LIQ (10 MG/5 ML) CUP PO (19:00)
[2017-08-23 20:38] LABS: PARTIAL THROMBOPLASTIN TIME 47.6 Sec (25.0-35.0)
[2017-08-24 01:41] LABS: DRVVT CONFIRMATION NEGATIVE (NEGATIVE); HEXAGONAL PHASE CONFIRMATION NEGATIVE (NEGATIVE)
[2017-08-24] MEDS: ACCU-CHEK XX (02:00)
[2017-08-24 06:37] LABS: ADD MAN DIFF? NO
[2017-08-24 06:40] LABS: ABNORMAL IP MESSAGE 1; BASOPHILS % 0.6 % (0.0-2.0); EOSINOPHILS # 0.1 10^3/ul (0.0-0.5); EOSINOPHILS % 2.1 % (0.0-7.0); HEMOGLOBIN 10.4 g/dl (14.0-18.0); LYMPHOCYTES # 1.2 10^3/ul (0.8-2.9); LYMPHOCYTES % 23.2 % (15.0-51.0); MEAN CORPUSCULAR HEMOGLOBIN 30.7 pg (29.0-33.0); MEAN CORPUSCULAR HGB CONC 33.5 g/dl (32.0-37.0); MEAN CORPUSCULAR VOLUME 91.4 fl (82.0-101.0); MEAN PLATELET VOLUME 11.4 fl (7.4-10.4); MONOCYTE # 0.4 10^3/ul (0.3-0.9); MONOCYTES % 8.3 % (0.0-11.0); NEUTROPHIL # 3.4 10^3/ul (1.6-7.5); NEUTROPHILS % 65.2 % (39.0-77.0); PLATELET COUNT 99 10^3/UL (140-415); POSITIVE DIFF @See below; RED BLOOD COUNT 3.39 10^6/ul (4.70-6.10); RED CELL DISTRIBUTION WIDTH 15.6 % (11.5-14.5)
[2017-08-24 06:40] LABS: WHITE BLOOD COUNT 5.2 10^3/ul (4.8-10.8)
[2017-08-24] MEDS: INSULIN ASPART [NOVOLOG] 3 ML PEN SC ×4 (07:42→22:19)
[2017-08-24] MEDS: LISINOPRIL 10 MG TAB PO (09:00)
[2017-08-24] MEDS: ISOSORBIDE MONONITRATE(SR)30 MG TAB PO (09:11)
[2017-08-24] MEDS: COLCHICINE 0.6 MG TAB PO (09:11)
[2017-08-24] MEDS: ASPIRIN 81 MG TAB PO (09:11)
[2017-08-24] MEDS: METOPROLOL 25 MG TAB PO ×2 (09:12→21:32)
[2017-08-24] MEDS: ALLOPURINOL 300 MG TAB PO (09:12)
[2017-08-24] MEDS: TICAGRELOR 90 MG TABLET PO ×2 (09:13→21:38)
[2017-08-24] MEDS: ARGATROBAN IV (17:09)
[2017-08-24] MEDS: SOD CHLORIDE 0.9% IV (17:09)
[2017-08-25] MEDS: ACCU-CHEK XX (02:00)
[2017-08-25] MEDS: INSULIN ASPART [NOVOLOG] 3 ML PEN SC ×4 (07:55→21:00)
[2017-08-25 08:59] LABS: ADD MAN DIFF? NO
[2017-08-25 09:02] LABS: BASOPHILS % 0.8 % (0.0-2.0); EOSINOPHILS # 0.1 10^3/ul (0.0-0.5); EOSINOPHILS % 1.6 % (0.0-7.0); HEMATOCRIT 32.4 % (42.0-52.0); HEMOGLOBIN 10.7 g/dl (14.0-18.0); LYMPHOCYTES # 1.2 10^3/ul (0.8-2.9); LYMPHOCYTES % 23.9 % (15.0-51.0); MEAN CORPUSCULAR HEMOGLOBIN 30.1 pg (29.0-33.0); MEAN CORPUSCULAR VOLUME 91.3 fl (82.0-101.0); MEAN PLATELET VOLUME 11.6 fl (7.4-10.4); MONOCYTE # 0.4 10^3/ul (0.3-0.9); MONOCYTES % 8.9 % (0.0-11.0); NEUTROPHIL # 3.1 10^3/ul (1.6-7.5); NEUTROPHILS % 64.4 % (39.0-77.0); PLATELET COUNT 129 10^3/UL (140-415); RED BLOOD COUNT 3.55 10^6/ul (4.70-6.10); RED CELL DISTRIBUTION WIDTH 15.5 % (11.5-14.5)
[2017-08-25 09:02] LABS: WHITE BLOOD COUNT 4.9 10^3/ul (4.8-10.8)
[2017-08-25 09:30] LABS: ALANINE AMINOTRANSFERASE 26 IU/L (13-69); ALBUMIN 4.1 g/dl (3.3-4.9); ALKALINE PHOSPHATASE 61 IU/L (42-121); ASPARTATE AMINO TRANSFERASE 17 IU/L (15-46); BILIRUBIN,INDIRECT 0.5 mg/dl (0-1.1); BILIRUBIN,TOTAL 0.5 mg/dl (0.2-1.3); TOTAL PROTEIN 7.5 g/dl (6.1-8.1)
[2017-08-25 09:31] LABS: PARTIAL THROMBOPLASTIN TIME 47.8 Sec (25.0-35.0)
[2017-08-25] MEDS: COLCHICINE 0.6 MG TAB PO (09:34)
[2017-08-25] MEDS: ASPIRIN 81 MG TAB PO (09:35)
[2017-08-25] MEDS: LISINOPRIL 10 MG TAB PO (09:35)
[2017-08-25] MEDS: ALLOPURINOL 300 MG TAB PO (09:35)
[2017-08-25] MEDS: METOPROLOL 25 MG TAB PO ×2 (09:35→21:02)
[2017-08-25] MEDS: ISOSORBIDE MONONITRATE(SR)30 MG TAB PO (09:35)
[2017-08-25] MEDS: TICAGRELOR 90 MG TABLET PO ×2 (09:45→21:23)
[2017-08-25] MEDS: ARGATROBAN IV (17:28)
[2017-08-25] MEDS: SOD CHLORIDE 0.9% IV (17:28)
[2017-08-25] MEDS: LORAZEPAM 0.5 MG TAB PO (23:02)
[2017-08-26] MEDS: LORAZEPAM 0.5 MG TAB PO (01:23)
[2017-08-26] MEDS: ACCU-CHEK XX (02:00)
[2017-08-26] MEDS: INSULIN ASPART [NOVOLOG] 3 ML PEN SC ×4 (07:55→21:00)
[2017-08-26] MEDS: ASPIRIN 81 MG TAB PO (08:32)
[2017-08-26] MEDS: COLCHICINE 0.6 MG TAB PO (08:32)
[2017-08-26] MEDS: ISOSORBIDE MONONITRATE(SR)30 MG TAB PO (08:33)
[2017-08-26] MEDS: LISINOPRIL 10 MG TAB PO (08:34)
[2017-08-26] MEDS: ALLOPURINOL 300 MG TAB PO (08:34)
[2017-08-26] MEDS: METOPROLOL 25 MG TAB PO ×2 (08:35→21:56)
[2017-08-26] MEDS: TICAGRELOR 90 MG TABLET PO ×2 (08:36→22:01)
[2017-08-26 09:33] LABS: ADD MAN DIFF? NO
[2017-08-26 09:43] LABS: WHITE BLOOD COUNT 5.8 10^3/ul (4.8-10.8)
[2017-08-26 09:43] LABS: BASOPHIL # 0.1 10^3/ul (0.0-0.1); EOSINOPHILS # 0.1 10^3/ul (0.0-0.5); EOSINOPHILS % 1.7 % (0.0-7.0); HEMATOCRIT 35.1 % (42.0-52.0); HEMOGLOBIN 11.5 g/dl (14.0-18.0); LYMPHOCYTES # 1.1 10^3/ul (0.8-2.9); LYMPHOCYTES % 18.9 % (15.0-51.0); MEAN CORPUSCULAR HEMOGLOBIN 30.3 pg (29.0-33.0); MEAN CORPUSCULAR HGB CONC 32.8 g/dl (32.0-37.0); MEAN CORPUSCULAR VOLUME 92.6 fl (82.0-101.0); MEAN PLATELET VOLUME 11.2 fl (7.4-10.4); MONOCYTE # 0.4 10^3/ul (0.3-0.9); MONOCYTES % 6.9 % (0.0-11.0); NEUTROPHIL # 4.2 10^3/ul (1.6-7.5); NEUTROPHILS % 71.2 % (39.0-77.0); PLATELET COUNT 146 10^3/UL (140-415); RED BLOOD COUNT 3.79 10^6/ul (4.70-6.10); RED CELL DISTRIBUTION WIDTH 15.6 % (11.5-14.5)
[2017-08-26 10:02] LABS: PARTIAL THROMBOPLASTIN TIME 54.9 Sec (25.0-35.0)
[2017-08-26 10:07] LABS: ANION GAP 16 (8-16); BLOOD UREA NITROGEN 20 mg/dl (7-20); CALCIUM 9.6 mg/dl (8.4-10.2); CARBON DIOXIDE 22 mmol/L (21-31); CHLORIDE 108 mmol/L (97-110); CREATININE 1.05 mg/dl (0.61-1.24); GLUCOSE 85 mg/dl (70-220); MAGNESIUM 1.9 mg/dl (1.7-2.5); PHOSPHORUS 4.6 mg/dl (2.5-4.9); SODIUM 142 mmol/L (135-144)
[2017-08-26] MEDS: ARGATROBAN IV (23:45)
[2017-08-26] MEDS: SOD CHLORIDE 0.9% IV (23:45)
[2017-08-27] MEDS: ACCU-CHEK XX (02:00)
[2017-08-27] MEDS: INSULIN ASPART [NOVOLOG] 3 ML PEN SC ×4 (07:55→21:00)
[2017-08-27] MEDS: ISOSORBIDE MONONITRATE(SR)30 MG TAB PO (08:10)
[2017-08-27] MEDS: ALLOPURINOL 300 MG TAB PO (08:10)
[2017-08-27] MEDS: ASPIRIN 81 MG TAB PO (08:10)
[2017-08-27] MEDS: COLCHICINE 0.6 MG TAB PO (08:10)
[2017-08-27] MEDS: LISINOPRIL 10 MG TAB PO (08:10)
[2017-08-27] MEDS: METOPROLOL 25 MG TAB PO ×2 (08:11→21:40)
[2017-08-27] MEDS: TICAGRELOR 90 MG TABLET PO ×2 (08:13→21:45)
[2017-08-27 08:49] LABS: ADD MAN DIFF? NO
[2017-08-27 08:57] LABS: BASOPHIL # 0.1 10^3/ul (0.0-0.1); EOSINOPHILS # 0.1 10^3/ul (0.0-0.5); EOSINOPHILS % 1.6 % (0.0-7.0); HEMATOCRIT 36.3 % (42.0-52.0); HEMOGLOBIN 11.8 g/dl (14.0-18.0); LYMPHOCYTES # 1.1 10^3/ul (0.8-2.9); LYMPHOCYTES % 21.7 % (15.0-51.0); MEAN CORPUSCULAR HEMOGLOBIN 30.2 pg (29.0-33.0); MEAN CORPUSCULAR HGB CONC 32.5 g/dl (32.0-37.0); MEAN CORPUSCULAR VOLUME 92.8 fl (82.0-101.0); MONOCYTE # 0.5 10^3/ul (0.3-0.9); MONOCYTES % 9.3 % (0.0-11.0); NEUTROPHIL # 3.4 10^3/ul (1.6-7.5); NEUTROPHILS % 66.2 % (39.0-77.0); PLATELET COUNT 169 10^3/UL (140-415); RED BLOOD COUNT 3.91 10^6/ul (4.70-6.10); RED CELL DISTRIBUTION WIDTH 15.6 % (11.5-14.5)
[2017-08-27 08:57] LABS: WHITE BLOOD COUNT 5.1 10^3/ul (4.8-10.8)
[2017-08-27 09:38] LABS: PARTIAL THROMBOPLASTIN TIME 51.3 Sec (25.0-35.0)
[2017-08-27] MEDS: WARFARIN 5 MG TAB PO (23:29)
[2017-08-28] MEDS: ACCU-CHEK XX (02:02)
[2017-08-28 07:51] LABS: ADD MAN DIFF? NO
[2017-08-28 07:55] LABS: BASOPHIL # 0.1 10^3/ul (0.0-0.1); BASOPHILS % 1.1 % (0.0-2.0); EOSINOPHILS # 0.1 10^3/ul (0.0-0.5); EOSINOPHILS % 1.5 % (0.0-7.0); HEMATOCRIT 33.1 % (42.0-52.0); HEMOGLOBIN 11.1 g/dl (14.0-18.0); LYMPHOCYTES # 1.3 10^3/ul (0.8-2.9); LYMPHOCYTES % 27.5 % (15.0-51.0); MEAN CORPUSCULAR HEMOGLOBIN 30.4 pg (29.0-33.0); MEAN CORPUSCULAR HGB CONC 33.5 g/dl (32.0-37.0); MEAN CORPUSCULAR VOLUME 90.7 fl (82.0-101.0); MONOCYTE # 0.4 10^3/ul (0.3-0.9); MONOCYTES % 7.7 % (0.0-11.0); NEUTROPHIL # 2.8 10^3/ul (1.6-7.5); NEUTROPHILS % 61.8 % (39.0-77.0); PLATELET COUNT 164 10^3/UL (140-415); RED BLOOD COUNT 3.65 10^6/ul (4.70-6.10); RED CELL DISTRIBUTION WIDTH 15.3 % (11.5-14.5)
[2017-08-28 07:55] LABS: WHITE BLOOD COUNT 4.6 10^3/ul (4.8-10.8)
[2017-08-28] MEDS: INSULIN ASPART [NOVOLOG] 3 ML PEN SC ×4 (07:55→21:00)
[2017-08-28 08:21] LABS: ALANINE AMINOTRANSFERASE 25 IU/L (13-69); ALKALINE PHOSPHATASE 55 IU/L (42-121); ASPARTATE AMINO TRANSFERASE 19 IU/L (15-46); BILIRUBIN,INDIRECT 0.6 mg/dl (0-1.1); BILIRUBIN,TOTAL 0.6 mg/dl (0.2-1.3); TOTAL PROTEIN 7.6 g/dl (6.1-8.1)
[2017-08-28] MEDS: ALLOPURINOL 300 MG TAB PO (08:35)
[2017-08-28] MEDS: COLCHICINE 0.6 MG TAB PO (08:35)
[2017-08-28] MEDS: ISOSORBIDE MONONITRATE(SR)30 MG TAB PO (08:39)
[2017-08-28] MEDS: ASPIRIN 81 MG TAB PO (08:39)
[2017-08-28] MEDS: METOPROLOL 25 MG TAB PO ×2 (08:46→20:20)
[2017-08-28] MEDS: TICAGRELOR 90 MG TABLET PO ×2 (08:46→20:25)
[2017-08-28] MEDS: SOD CHLORIDE 0.9% IV (12:57)
[2017-08-28] MEDS: ARGATROBAN IV (12:57)
[2017-08-28 15:07] LABS: CARDIOLIPIN AB - IGA <11 APL; CARDIOLIPIN AB - IGG <14 GPL; CARDIOLIPIN AB - IGM <12 MPL
[2017-08-28] MEDS: WARFARIN 5 MG TAB PO (17:58)
[2017-08-29] MEDS: ACCU-CHEK XX (02:00)
[2017-08-29 06:50] LABS: ADD MAN DIFF? NO
[2017-08-29 07:06] LABS: BASOPHIL # 0.1 10^3/ul (0.0-0.1); EOSINOPHILS # 0.1 10^3/ul (0.0-0.5); EOSINOPHILS % 2.5 % (0.0-7.0); HEMATOCRIT 33.3 % (42.0-52.0); HEMOGLOBIN 11.1 g/dl (14.0-18.0); LYMPHOCYTES # 1.3 10^3/ul (0.8-2.9); LYMPHOCYTES % 25.8 % (15.0-51.0); MEAN CORPUSCULAR HEMOGLOBIN 30.6 pg (29.0-33.0); MEAN CORPUSCULAR HGB CONC 33.3 g/dl (32.0-37.0); MEAN CORPUSCULAR VOLUME 91.7 fl (82.0-101.0); MEAN PLATELET VOLUME 11.1 fl (7.4-10.4); MONOCYTE # 0.4 10^3/ul (0.3-0.9); NEUTROPHILS % 62.3 % (39.0-77.0); PLATELET COUNT 166 10^3/UL (140-415); RED BLOOD COUNT 3.63 10^6/ul (4.70-6.10); RED CELL DISTRIBUTION WIDTH 15.2 % (11.5-14.5)
[2017-08-29 07:06] LABS: WHITE BLOOD COUNT 4.9 10^3/ul (4.8-10.8)
[2017-08-29 07:46] LABS: PARTIAL THROMBOPLASTIN TIME 51.9 Sec (25.0-35.0)
[2017-08-29 07:48] LABS: INR 1.67; PT RATIO 1.6
[2017-08-29] MEDS: INSULIN ASPART [NOVOLOG] 3 ML PEN SC ×4 (07:55→21:00)
[2017-08-29] MEDS: COLCHICINE 0.6 MG TAB PO (09:00)
[2017-08-29] MEDS: ALLOPURINOL 300 MG TAB PO (09:15)
[2017-08-29] MEDS: METOPROLOL 25 MG TAB PO ×2 (09:15→20:20)
[2017-08-29] MEDS: ISOSORBIDE MONONITRATE(SR)30 MG TAB PO (09:15)
[2017-08-29] MEDS: ASPIRIN 81 MG TAB PO (09:15)
[2017-08-29] MEDS: TICAGRELOR 90 MG TABLET PO ×2 (09:22→20:27)
[2017-08-29] MEDS: SOD CHLORIDE 0.9% IV (12:38)
[2017-08-29] MEDS: ARGATROBAN IV (12:38)
[2017-08-29] MEDS: WARFARIN 7.5 MG TAB PO (17:18)
[2017-08-30] MEDS: ACCU-CHEK XX (02:00)
[2017-08-30] MEDS: [UNRECOGNIZED DRUG - REMARK] XX (05:00)
[2017-08-30 06:42] LABS: ADD MAN DIFF? NO
[2017-08-30 06:51] LABS: BASOPHIL # 0.1 10^3/ul (0.0-0.1); BASOPHILS % 1.2 % (0.0-2.0); EOSINOPHILS # 0.1 10^3/ul (0.0-0.5); EOSINOPHILS % 2.4 % (0.0-7.0); HEMATOCRIT 33.7 % (42.0-52.0); HEMOGLOBIN 11.1 g/dl (14.0-18.0); LYMPHOCYTES # 1.4 10^3/ul (0.8-2.9); LYMPHOCYTES % 27.2 % (15.0-51.0); MEAN CORPUSCULAR HGB CONC 32.9 g/dl (32.0-37.0); MEAN CORPUSCULAR VOLUME 91.1 fl (82.0-101.0); MEAN PLATELET VOLUME 10.6 fl (7.4-10.4); MONOCYTE # 0.4 10^3/ul (0.3-0.9); MONOCYTES % 7.6 % (0.0-11.0); NEUTROPHIL # 3.1 10^3/ul (1.6-7.5); NEUTROPHILS % 61.4 % (39.0-77.0); PLATELET COUNT 176 10^3/UL (140-415); RED CELL DISTRIBUTION WIDTH 14.9 % (11.5-14.5)
[2017-08-30 06:58] LABS: INR 1.63; PROTIME 19.7 Sec (11.9-14.9); PT RATIO 1.5
[2017-08-30 06:59] LABS: PARTIAL THROMBOPLASTIN TIME 49.4 Sec (25.0-35.0)
[2017-08-30] MEDS: INSULIN ASPART [NOVOLOG] 3 ML PEN SC ×4 (07:55→20:48)
[2017-08-30] MEDS: COLCHICINE 0.6 MG TAB PO (08:04)
[2017-08-30] MEDS: ALLOPURINOL 300 MG TAB PO (08:04)
[2017-08-30] MEDS: ISOSORBIDE MONONITRATE(SR)30 MG TAB PO (08:06)
[2017-08-30] MEDS: METOPROLOL 25 MG TAB PO ×2 (08:07→20:28)
[2017-08-30] MEDS: ASPIRIN 81 MG TAB PO (08:07)
[2017-08-30] MEDS: TICAGRELOR 90 MG TABLET PO ×2 (08:16→20:47)
[2017-08-30] MEDS: ARGATROBAN IV (14:30)
[2017-08-30] MEDS: SOD CHLORIDE 0.9% IV (14:30)
[2017-08-30] MEDS: WARFARIN 7.5 MG TAB PO (17:32)
[2017-08-31] MEDS: ACCU-CHEK XX (01:52)
[2017-08-31] MEDS: [UNRECOGNIZED DRUG - REMARK] XX (05:00)
[2017-08-31 07:08] LABS: INR 1.73; PROTIME 20.6 Sec (11.9-14.9); PT RATIO 1.6
[2017-08-31 07:09] LABS: PARTIAL THROMBOPLASTIN TIME 49.7 Sec (25.0-35.0)
[2017-08-31] MEDS: INSULIN ASPART [NOVOLOG] 3 ML PEN SC ×4 (07:36→20:32)
[2017-08-31] MEDS: ALLOPURINOL 300 MG TAB PO (08:22)
[2017-08-31] MEDS: ISOSORBIDE MONONITRATE(SR)30 MG TAB PO (08:22)
[2017-08-31] MEDS: ASPIRIN 81 MG TAB PO (08:22)
[2017-08-31] MEDS: COLCHICINE 0.6 MG TAB PO (08:22)
[2017-08-31] MEDS: METOPROLOL 25 MG TAB PO ×2 (08:23→20:32)
[2017-08-31] MEDS: TICAGRELOR 90 MG TABLET PO ×2 (08:57→20:50)
[2017-08-31] MEDS: SOD CHLORIDE 0.9% IV ×2 (12:49→14:17)
[2017-08-31] MEDS: ARGATROBAN IV ×2 (12:49→14:17)
[2017-08-31] MEDS: WARFARIN 10 MG TAB PO (17:16)
[2017-09-01] MEDS: ACCU-CHEK XX (01:28)
[2017-09-01] MEDS: [UNRECOGNIZED DRUG - REMARK] XX (05:00)
[2017-09-01 07:46] LABS: INR 2.21; PROTIME 25.1 Sec (11.9-14.9)
[2017-09-01 07:47] LABS: PARTIAL THROMBOPLASTIN TIME 58.3 Sec (25.0-35.0)
[2017-09-01] MEDS: INSULIN ASPART [NOVOLOG] 3 ML PEN SC ×4 (07:55→21:00)
[2017-09-01] MEDS: ISOSORBIDE MONONITRATE(SR)30 MG TAB PO (08:41)
[2017-09-01] MEDS: ALLOPURINOL 300 MG TAB PO (08:42)
[2017-09-01] MEDS: TICAGRELOR 90 MG TABLET PO ×2 (08:43→21:01)
[2017-09-01] MEDS: COLCHICINE 0.6 MG TAB PO (08:44)
[2017-09-01] MEDS: METOPROLOL 25 MG TAB PO ×2 (08:45→21:01)
[2017-09-01] MEDS: ASPIRIN 81 MG TAB PO (08:45)
[2017-09-01] MEDS: ARGATROBAN IV ×2 (12:21→19:58)
[2017-09-01] MEDS: SOD CHLORIDE 0.9% IV ×2 (12:21→19:58)
[2017-09-01 17:01] LABS: INR 1.56; PARTIAL THROMBOPLASTIN TIME 30.9 Sec (25.0-35.0); PT RATIO 1.5
[2017-09-01] MEDS: WARFARIN 10 MG TAB PO (17:21)
[2017-09-01] MEDS: WARFARIN 2.5 MG TAB PO (20:59)
[2017-09-02 00:44] LABS: PARTIAL THROMBOPLASTIN TIME 56.2 Sec (25.0-35.0)
[2017-09-02] MEDS: ACCU-CHEK XX (02:00)
[2017-09-02] MEDS: [UNRECOGNIZED DRUG - REMARK] XX (05:00)
[2017-09-02 07:38] LABS: INR 3.16; PROTIME 33.4 Sec (11.9-14.9); PT RATIO 2.6
[2017-09-02 07:40] LABS: PARTIAL THROMBOPLASTIN TIME 66.8 Sec (25.0-35.0)
[2017-09-02] MEDS: INSULIN ASPART [NOVOLOG] 3 ML PEN SC ×4 (07:55→20:14)
[2017-09-02] MEDS: ISOSORBIDE MONONITRATE(SR)30 MG TAB PO (08:22)
[2017-09-02] MEDS: COLCHICINE 0.6 MG TAB PO (08:22)
[2017-09-02] MEDS: ALLOPURINOL 300 MG TAB PO (08:22)
[2017-09-02] MEDS: ASPIRIN 81 MG TAB PO (08:22)
[2017-09-02] MEDS: METOPROLOL 25 MG TAB PO ×2 (08:23→20:11)
[2017-09-02] MEDS: TICAGRELOR 90 MG TABLET PO ×2 (08:29→20:13)
[2017-09-02 12:07] LABS: INR 3.11; PT RATIO 2.6
[2017-09-02 12:08] LABS: PARTIAL THROMBOPLASTIN TIME 55.3 Sec (25.0-35.0)
[2017-09-02] MEDS: WARFARIN 2.5 MG TAB PO (17:26)
[2017-09-02] MEDS: WARFARIN 10 MG TAB PO (17:26)
[2017-09-02] MEDS: SOD CHLORIDE 0.9% IV (20:14)
[2017-09-02] MEDS: ARGATROBAN IV (20:14)
[2017-09-03] MEDS: ACCU-CHEK XX (02:00)
[2017-09-03] MEDS: [UNRECOGNIZED DRUG - REMARK] XX (05:00)
[2017-09-03 05:37] LABS: PROTIME 39.5 Sec (11.9-14.9); PT RATIO 3.1
[2017-09-03] MEDS: INSULIN ASPART [NOVOLOG] 3 ML PEN SC ×4 (07:55→20:34)
[2017-09-03] MEDS: COLCHICINE 0.6 MG TAB PO (09:41)
[2017-09-03] MEDS: METOPROLOL 25 MG TAB PO ×2 (09:41→20:35)
[2017-09-03] MEDS: ASPIRIN 81 MG TAB PO (09:41)
[2017-09-03] MEDS: ISOSORBIDE MONONITRATE(SR)30 MG TAB PO (09:41)
[2017-09-03] MEDS: ALLOPURINOL 300 MG TAB PO (09:41)
[2017-09-03] MEDS: TICAGRELOR 90 MG TABLET PO ×2 (09:47→20:42)
[2017-09-03 14:55] LABS: INR 2.48; PROTIME 27.5 Sec (11.9-14.9); PT RATIO 2.1
[2017-09-03] MEDS ORDERED: WARFARIN 7.5 MG TAB GTB ×2 (17:00)
[2017-09-03] MEDS: WARFARIN 7.5 MG TAB GTB (17:14)
[2017-09-03] MEDS: WARFARIN 5 MG TAB GTB (17:14)
[2017-09-04] MEDS: ACCU-CHEK XX (02:00)
[2017-09-04] MEDS: INSULIN ASPART [NOVOLOG] 3 ML PEN SC (07:55)
[2017-09-04] MEDS: COLCHICINE 0.6 MG TAB PO (08:12)
[2017-09-04] MEDS: ASPIRIN 81 MG TAB PO (08:12)
[2017-09-04] MEDS: ALLOPURINOL 300 MG TAB PO (08:12)
[2017-09-04] MEDS: METOPROLOL 25 MG TAB PO (08:13)
[2017-09-04] MEDS: ISOSORBIDE MONONITRATE(SR)30 MG TAB PO (08:13)
[2017-09-04] MEDS: TICAGRELOR 90 MG TABLET PO (08:19)
[2017-09-04 08:43] LABS: INR 2.57; PROTIME 28.3 Sec (11.9-14.9); PT RATIO 2.2
[2017-09-04 08:44] LABS: PARTIAL THROMBOPLASTIN TIME 41.6 Sec (25.0-35.0)
[2017-09-04] MEDS: WARFARIN 7.5 MG TAB GTB (12:30)
[2017-09-04] MEDS: WARFARIN 5 MG TAB GTB (12:34)
== END 2017-09-04 12:45 | disposition home or self-care (01) | DRG 246 ==
LOC: ICU 08-19 08:24 → TEL 08-22 18:30 → E/R 21:02 → ICU 08-19 08:24 → TEL 08-17 19:30 → ICU 08-18 11:20 → TEL 23:16
PROC: 027034Z Dilation of Coronary Artery, One Artery with Drug-eluting Intraluminal Device, Percutaneous Approach (ICD-10-PCS; principal; 2017-08-18 08:05)
PROC: 02C03ZZ Extirpation of Matter from Coronary Artery, One Artery, Percutaneous Approach (ICD-10-PCS; 2017-08-18 08:05)
PROC: 4A023N7 Measurement of Cardiac Sampling and Pressure, Left Heart, Percutaneous Approach (ICD-10-PCS; 2017-08-18 08:05)
PROC: B2031ZZ Plain Radiography of Multiple Coronary Artery Bypass Grafts using Low Osmolar Contrast (ICD-10-PCS; 2017-08-18 08:05)
PROC: B2011ZZ Plain Radiography of Multiple Coronary Arteries using Low Osmolar Contrast (ICD-10-PCS; 2017-08-18 08:05)
PROC: 8E023DZ Near Infrared Spectroscopy of Circulatory System, Percutaneous Approach (ICD-10-PCS; 2017-08-18 08:05)
PROC: 30233R1 Transfusion of Nonautologous Platelets into Peripheral Vein, Percutaneous Approach (ICD-10-PCS; 2017-08-18 08:05)
DX: I25.810 Atherosclerosis of coronary artery bypass graft(s) without angina pectoris (principal); I21.4 Non-ST elevation (NSTEMI) myocardial infarction; D68.59 Other primary thrombophilia; E87.0 Hyperosmolality and hypernatremia; I10 Essential (primary) hypertension; E78.5 Hyperlipidemia, unspecified; D75.82 Heparin induced thrombocytopenia (HIT); I25.2 Old myocardial infarction; Z95.1 Presence of aortocoronary bypass graft; Z86.718 Personal history of other venous thrombosis and embolism; Z72.0 Tobacco use; E87.6 Hypokalemia
CPT/HCPCS: 36415; 36430; 71045; 80048; 80076; 82550; 82553; 82962; 83735; 83880; 84100; 84260; 84484; 85025; 85384; 85610; 85613; 85730; 86022; 86147; 86850; 86900; 86901; 86945; 92937; 92978; 93005; 93455; 96374; 96375; 97161; 99285-25

== ENCOUNTER 2017-09-09 13:55 | Inpatient (IN) | payer BC ==
[2017-09-09 16:48] LABS: ADD MAN DIFF? NO
[2017-09-09 16:52] LABS: WHITE BLOOD COUNT 6.6 10^3/ul (4.8-10.8)
[2017-09-09 16:52] LABS: BASOPHIL # 0.1 10^3/ul (0.0-0.1); BASOPHILS % 0.9 % (0.0-2.0); EOSINOPHILS # 0.1 10^3/ul (0.0-0.5); EOSINOPHILS % 1.7 % (0.0-7.0); HEMATOCRIT 34.6 % (42.0-52.0); HEMOGLOBIN 11.5 g/dl (14.0-18.0); LYMPHOCYTES # 1.4 10^3/ul (0.8-2.9); LYMPHOCYTES % 21.6 % (15.0-51.0); MEAN CORPUSCULAR HEMOGLOBIN 30.1 pg (29.0-33.0); MEAN CORPUSCULAR HGB CONC 33.2 g/dl (32.0-37.0); MEAN CORPUSCULAR VOLUME 90.6 fl (82.0-101.0); MEAN PLATELET VOLUME 10.6 fl (7.4-10.4); MONOCYTE # 0.5 10^3/ul (0.3-0.9); MONOCYTES % 7.5 % (0.0-11.0); NEUTROPHIL # 4.5 10^3/ul (1.6-7.5); PLATELET COUNT 156 10^3/UL (140-415); RED BLOOD COUNT 3.82 10^6/ul (4.70-6.10); RED CELL DISTRIBUTION WIDTH 14.6 % (11.5-14.5)
[2017-09-09 17:11] LABS: ANION GAP 20 (8-16); BLOOD UREA NITROGEN 15 mg/dl (7-20); CALCIUM 8.9 mg/dl (8.4-10.2); CARBON DIOXIDE 20 mmol/L (21-31); CHLORIDE 108 mmol/L (97-110); CREATININE 0.97 mg/dl (0.61-1.24); GLUCOSE 100 mg/dl (70-220); POTASSIUM 4.1 mmol/L (3.5-5.1); SODIUM 144 mmol/L (135-144)
[2017-09-09 17:15] LABS: INR 4.41; PARTIAL THROMBOPLASTIN TIME 49.4 Sec (25.0-35.0); PROTIME 43.6 Sec (11.9-14.9); PT RATIO 3.4
[2017-09-09] MEDS ORDERED: ONDANSETRON 4 MG INJ IV ×2 (19:30→23:00)
[2017-09-09] MEDS ORDERED: ACETAMINOPHEN 325 MG TAB PO ×2 (19:30→23:00)
[2017-09-09] MEDS ORDERED: LORAZEPAM 1 MG TAB PO (23:00)
[2017-09-09] MEDS ORDERED: NACL 0.9% 3 ML SYG IV (23:00)
[2017-09-09] MEDS ORDERED: ALPRAZOLAM 0.25 MG TAB PO (23:00)
[2017-09-09] MEDS ORDERED: ZOLPIDEM 5 MG TAB PO (23:00)
[2017-09-09] MEDS ORDERED: HYDROCODONE/APAP (5/325) TAB PO (23:00)
[2017-09-09] MEDS: TICAGRELOR 90 MG TABLET PO (23:49)
[2017-09-09] MEDS: METOPROLOL 50 MG TAB PO (23:50)
[2017-09-10] MEDS: PANTOPRAZOLE (EC) 40 MG TAB PO (05:21)
[2017-09-10 05:49] LABS: ADD MAN DIFF? NO
[2017-09-10 05:53] LABS: BASOPHIL # 0.1 10^3/ul (0.0-0.1); BASOPHILS % 1.3 % (0.0-2.0); EOSINOPHILS # 0.2 10^3/ul (0.0-0.5); EOSINOPHILS % 2.7 % (0.0-7.0); HEMATOCRIT 34.2 % (42.0-52.0); HEMOGLOBIN 11.3 g/dl (14.0-18.0); LYMPHOCYTES # 1.2 10^3/ul (0.8-2.9); LYMPHOCYTES % 21.4 % (15.0-51.0); MEAN CORPUSCULAR HEMOGLOBIN 29.8 pg (29.0-33.0); MEAN CORPUSCULAR VOLUME 90.2 fl (82.0-101.0); MONOCYTE # 0.6 10^3/ul (0.3-0.9); MONOCYTES % 10.4 % (0.0-11.0); NEUTROPHIL # 3.6 10^3/ul (1.6-7.5); PLATELET COUNT 122 10^3/UL (140-415); RED BLOOD COUNT 3.79 10^6/ul (4.70-6.10); RED CELL DISTRIBUTION WIDTH 14.5 % (11.5-14.5)
[2017-09-10 05:53] LABS: WHITE BLOOD COUNT 5.6 10^3/ul (4.8-10.8)
[2017-09-10 07:01] LABS: ALANINE AMINOTRANSFERASE 27 IU/L (13-69); ALBUMIN 3.8 g/dl (3.3-4.9); ALBUMIN/GLOBULIN RATIO 1.11; ALKALINE PHOSPHATASE 53 IU/L (42-121); ANION GAP 13 (8-16); ASPARTATE AMINO TRANSFERASE 20 IU/L (15-46); BILIRUBIN,INDIRECT 0.4 mg/dl (0-1.1); BILIRUBIN,TOTAL 0.4 mg/dl (0.2-1.3); BLOOD UREA NITROGEN 16 mg/dl (7-20); CARBON DIOXIDE 24 mmol/L (21-31); CHLORIDE 112 mmol/L (97-110); CREATININE 1.02 mg/dl (0.61-1.24); GLUCOSE 92 mg/dl (70-220); POTASSIUM 3.9 mmol/L (3.5-5.1); SODIUM 145 mmol/L (135-144); TOTAL PROTEIN 7.2 g/dl (6.1-8.1)
[2017-09-10] MEDS: ASPIRIN (EC) 81 MG TAB PO (08:20)
[2017-09-10] MEDS: ALLOPURINOL 300 MG TAB PO (08:21)
[2017-09-10] MEDS: METOPROLOL 50 MG TAB PO ×2 (08:21→21:17)
[2017-09-10] MEDS: TICAGRELOR 90 MG TABLET PO ×2 (08:24→21:20)
[2017-09-10] MEDS: ISOSORBIDE MONONITRATE(SR)60 MG TAB PO (08:24)
[2017-09-10 08:57] LABS: INR 3.82; PROTIME 38.9 Sec (11.9-14.9)
[2017-09-11] MEDS: PANTOPRAZOLE (EC) 40 MG TAB PO (05:57)
[2017-09-11 06:15] LABS: ADD MAN DIFF? NO
[2017-09-11 06:28] LABS: BASOPHIL # 0.1 10^3/ul (0.0-0.1); EOSINOPHILS # 0.1 10^3/ul (0.0-0.5); EOSINOPHILS % 2.6 % (0.0-7.0); HEMATOCRIT 37.2 % (42.0-52.0); HEMOGLOBIN 12.4 g/dl (14.0-18.0); LYMPHOCYTES # 1.1 10^3/ul (0.8-2.9); LYMPHOCYTES % 22.5 % (15.0-51.0); MEAN CORPUSCULAR HEMOGLOBIN 30.2 pg (29.0-33.0); MEAN CORPUSCULAR HGB CONC 33.3 g/dl (32.0-37.0); MEAN CORPUSCULAR VOLUME 90.5 fl (82.0-101.0); MEAN PLATELET VOLUME 11.4 fl (7.4-10.4); MONOCYTE # 0.5 10^3/ul (0.3-0.9); MONOCYTES % 9.3 % (0.0-11.0); NEUTROPHIL # 3.2 10^3/ul (1.6-7.5); NEUTROPHILS % 64.4 % (39.0-77.0); PLATELET COUNT 132 10^3/UL (140-415); POSITIVE DIFF @See below; RED BLOOD COUNT 4.11 10^6/ul (4.70-6.10); RED CELL DISTRIBUTION WIDTH 14.6 % (11.5-14.5)
[2017-09-11 06:52] LABS: ANION GAP 16 (8-16); BLOOD UREA NITROGEN 19 mg/dl (7-20); CALCIUM 9.4 mg/dl (8.4-10.2); CARBON DIOXIDE 28 mmol/L (21-31); CHLORIDE 104 mmol/L (97-110); CREATININE 1.08 mg/dl (0.61-1.24); GLUCOSE 91 mg/dl (70-220); MAGNESIUM 1.8 mg/dl (1.7-2.5); PHOSPHORUS 4.8 mg/dl (2.5-4.9); SODIUM 144 mmol/L (135-144)
[2017-09-11] MEDS: ASPIRIN (EC) 81 MG TAB PO (08:24)
[2017-09-11] MEDS: ALLOPURINOL 300 MG TAB PO (08:24)
[2017-09-11] MEDS: METOPROLOL 50 MG TAB PO (08:28)
[2017-09-11] MEDS: TICAGRELOR 90 MG TABLET PO (08:28)
[2017-09-11 09:12] LABS: INR 2.25; PROTIME 25.4 Sec (11.9-14.9)
[2017-09-11] MEDS ORDERED: WARFARIN 10 MG TAB PO (17:00)
== END 2017-09-11 11:30 | disposition home or self-care (01) | DRG 300 ==
LOC: E/R 13:55 → MS2 19:21
DX: I87.009 Postthrombotic syndrome without complications of unspecified extremity (principal); E87.0 Hyperosmolality and hypernatremia; I42.9 Cardiomyopathy, unspecified; D68.59 Other primary thrombophilia; I82.511 Chronic embolism and thrombosis of right femoral vein; I25.10 Atherosclerotic heart disease of native coronary artery without angina pectoris; D75.82 Heparin induced thrombocytopenia (HIT); I10 Essential (primary) hypertension; D64.9 Anemia, unspecified; F41.9 Anxiety disorder, unspecified; E78.5 Hyperlipidemia, unspecified; F17.200 Nicotine dependence, unspecified, uncomplicated; I25.2 Old myocardial infarction; Z79.82 Long term (current) use of aspirin; Z95.1 Presence of aortocoronary bypass graft; E11.42 Type 2 diabetes mellitus with diabetic polyneuropathy; Z95.5 Presence of coronary angioplasty implant and graft
CPT/HCPCS: 80048; 80053; 83735; 84100; 85025; 85610; 85730; 93971; 99285-25